=== PATIENT | female | born 1945 | race Caucasian/White ===

== ENCOUNTER 2017-03-22 08:56 | Emergency (ER) | payer OTHER ==
[~2017-03-22] VITALS: Ht 167.6 cm; Wt 77.9 kg
[~2017-03-22 08:56] MED LIST: ASPI325T45 PO; BUME1TAB PO; GLUC500T35 PO; HYDR-5688 PO; LISI10TA PO; METO1TAB66 PO; MULTCAP42 PO; WARF2.5T8 PO; [UNRECOGNIZED DRUG - CODE] PO
[2017-03-22 09:01] VITALS: TEMP 36.3; Ht 167.6 cm; Wt 77.9 kg
--- NOTE | 2017-03-22 09:33 | EMERGENCY ROOM VISIT NOTE ---
History Report prepared by Kalpana: Rylee Tyson Under the Supervision of: Dr. Mark Bautista M.D. First contact with patient: 09:13 Chief Complaint: RAPID HEART RATE Stated Complaint: RAPID HEART RATE Nursing Triage Summary: Rapid HR since last Saturday. Hx A. Fib. Pts clinical specialty rep, Dr. Hernandez verbalized pt should come to ED for possible cardioversion. Takes Xarelto. History of Present Illness The patient is a 71 year old female who presents to the Emergency Room with complaints of a constant rapid heart rate for the past 6 days. She states that her heart rate has been in the 110's. She has a history of atrial fibrillation but states that she is usually in a normal sinus rhythm. She currently feels like her heart is racing, and she has been having trouble sleeping due to her symptoms. The patient notes shortness of breath with exertion. She has a pacemaker and an artificial valve. She takes Tikosyn daily and only takes Xarelto when she is in a-fib. She has been taking Xarelto for the past 6 days without any improvement of her symptoms. The patient denies any chest pain. She denies any stimulant usage or recent caffeine intake. She has been experiencing intermittent leg cramping. The patient spoke with her clinical specialty rep, Dr. Hernandez , who advised her to come to the ED for evaluation and possible cardioversion. The patient has been cardioverted numerous times in the past. Source of History: patient Onset: 6 days ago Position: chest Symptom Intensity: HR in 110s Quality: other (rapid) Timing: constant Modifying Factors (Worsening): exertion Associated Symptoms: + SOB, No chest pain Review of Systems All systems have been listed, reviewed, and are negative other than those previously mentioned. Please see Additional Medical History Sheet. Past Medical & Surgical Medical Problems: (1) A-fib (2) Cardiac pacemaker in situ (3) Concussion (4) HTN (hypertension) (5) Pacemaker malfunction (6) Pacemaker malfunction (7) Paroxysmal a-fib (8) Paroxysmal a-fib (9) SOB (shortness of breath) (10) Syncope Surgical Problems: (1) History of artificial heart valve Family History Diabetes mellitus Heart disease Social History Smoking Status: Never Smoker Marital Status: single Occupation Status: retired Current/Historical Medications Scheduled Bumetanide (Bumetanide), 0.5 MG PO DAILY Dofetilide (Dofetilide), 250 MCG PO BID Fzpqrvmfjpt-Kxvqvfkrrro-Xit C- (Glucosamine Chondroitin), 1 CAP PO DAILY Lisinopril (Lisinopril), 10 MG PO DAILY Metoprolol Succinate (Metoprolol Succinate ER), 100 MG PO BID Multivitamin (Multivitamin), 1 TAB PO DAILY Scheduled PRN Rivaroxaban (Xarelto), 20 MG PO DAILY PRN for A-FIB Allergies Coded Allergies: Furosemide (Verified Allergy, Unknown, RASH, 05/26/14) Statins (Verified Allergy, Unknown, ., 05/26/14) Ezetimibe (Verified Adverse Reaction, Unknown, nausea,diarrhea, 05/26/14) Physical Exam Vital Signs Date Time Temp Pulse Resp B/P (MAP) Pulse Ox O2 Delivery O2 Flow Rate FiO2 03/22/17 15:10 112 16 124/90 95 Room Air 03/22/17 13:35 111 18 136/111 97 Room Air 03/22/17 13:09 111 03/22/17 11:30 112 125/100 03/22/17 11:21 110 142/98 03/22/17 10:51 111 18 126/96 95 Room Air 03/22/17 09:19 111 03/22/17 09:01 93 Room Air 03/22/17 09:01 36.3 113 18 128/88 93 Room Air Physical Exam GENERAL: Patient awake, alert, oriented x 3. Patient follows commands. Patient does not appear toxic. Patient is adequately hydrated and well- nourished. SKIN: No erythema, pallor, cyanosis or rash HEENT: Normal head, pupils equal, reactive to light and accommodation. LUNGS: Clear to auscultation. No wheezes, no rales, no rhonchi. HEART: Grade 3/6 systolic murmur. Irregularly irregular and rapid. No gallops. No rubs ABDOMEN: No masses, no rebound, no hepatomegaly or splenomegaly. EXTREMITIES: No signs of trauma. No pedal or pretibial edema. No calf or thigh tenderness. NEUROLOGIC: Cranial nerves II-XII within normal limits. No gross motor sensory function deficits. Medical Decision & Procedures ER Provider Diagnostic Interpretation: Radiology results as stated below per my review and radiologist interpretation: CHEST ONE VIEW PORTABLE HISTORY: Atrial fibrillation. COMPARISON: Chest 05/28/2014. FINDINGS: The heart remains mildly enlarged. Left-sided pacemaker. Poststernotomy changes and an aortic valve prosthesis. The lungs are clear. No pleural effusions. No pneumothorax. IMPRESSION: No significant change compared to the prior study. No acute process. Electronically signed by: Kwame Holden M.D. 03/22/2017 9:46 AM Dictated Date/Time: 03/22/2017 9:45 AM Laboratory Results 03/22/17 09:35 03/22/17 09:35 Test 03/22/17 09:35 Red Blood Count 4.98 M/uL (4.2-5.4) Mean Corpuscular Volume 85.3 fL (80-100) Mean Corpuscular Hemoglobin 27.1 pg (25-34) Mean Corpuscular Hemoglobin Concent 31.8 g/dl (32-36) RDW Standard Deviation 44.9 fL (36.4-46.3) RDW Coefficient of Variation 14.4 % (11.5-14.5) Mean Platelet Volume 9.4 fL (7.4-10.4) Anion Gap 6.0 mmol/L (3-11) Est Creatinine Clear Calc Drug Dose 48.7 ml/min Estimated GFR () 58.1 Estimated GFR (Non- 50.1 BUN/Creatinine Ratio 23.4 (10-20) Calcium Level 9.7 mg/dl (8.5-10.1) Troponin I < 0.015 ng/ml (0-0.045) Thyroid Stimulating Hormone (TSH) 3.790 uIu/ml (0.300-4.500) Laboratory results as stated above per my review. Medications Administered Medications (Trade) Dose Ordered Sig/Shen Route Start Time Stop Time Status Last Admin Dose Admin Metoprolol Tartrate (Lopressor Iv) 5 mg STK-MED ONCE .ROUTE 03/22/17 11:14 03/22/17 11:15 DC 03/22/17 11:21 5 MG Sodium Chloride 1,000 ml @ 200 mls/hr Q5H IV 03/22/17 11:30 04/21/17 11:29 03/22/17 11:30 200 MLS/HR Diltiazem HCl (Cardizem Cd Cap) 120 mg 1343 PO 03/22/17 13:43 03/22/17 16:00 03/22/17 13:54 120 MG ECG Indication: tachycardia Rate (beats per minute): 111 Rhythm: atrial fibrillation (with RVR) Findings: LAFB, RBBB, no acute ischemic change ED Course 09: Past medical records reviewed. The patient was evaluated in room A12B. A complete history and physical examination was performed. 1033: I spoke with Dr. Hernandez, the patient's clinical specialty rep. We discussed the patient's case and he is aware of her. Dr. Scott will come to the ED to evaluate the patient. 1054: I updated the patient and she is in agreement with the treatment plan. 1400: I spoke with Dr. Scott of cardiology. He interrogated the patient's pacemaker and believes the patient to be in an atrial tachycardia as opposed to atrial fibrillation. He ordered medications and the patient can be discharged. 1441: I reassessed the patient at this time. She is feeling better and resting comfortably. I discussed the results and treatment plan with the patient. I answered all pertaining questions that she had. She expressed understanding and verbalized agreement. The patient will be discharged home. Medical Decision Differential diagnoses includes atrial fibrillation, metabolic disorder, thyroid dysfunction. Medication Reconciliation: I attest that I have personally reviewed the patient' s current medication list. The patient has a prior history of recurrent atrial fibrillation. She now arrives with an irregular rapid rate. She takes Xarelto intermittently when she thinks she is back in atrial fibrillation. The initial EKG appeared to be atrial fibrillation. I discussed the case initially with Dr. Hernandez and later with Dr. Scott. Multiple labs, EKG and imaging were obtained. Please see above. Her pacemaker was interrogated. It was later determined that the patient was in atrial tachycardia with PACs. The patient was treated with Cardizem. Dr. Scott felt the patient could be discharged. Consults Time Called: 1031 Consulting Physician: Dr. Hernandez Returned Call: [address] Hernandez, the patient's clinical specialty rep. We discussed the patient' s case and he is aware of her. Dr. Scott will come to the ED to evaluate the patient. Additional Consults: Time Called: 1400 Consulted Physician: Dr. Scott Returned Call: 1400 Additional Comments: I spoke with Dr. Scott of cardiology. He interrogated the patient's pacemaker and believes the patient to be in an atrial tachycardia as opposed to atrial fibrillation. He ordered medications and the patient can be discharged. Impression Primary Impression: Atrial tachycardia Additional Impression: PAC (premature atrial contraction) Scribe Attestation The scribe's documentation has been prepared under my direction and personally reviewed by me in its entirety. I confirm that the note above accurately reflects all work, treatment, procedures, and medical decision making performed by me. Departure Information Dispostion Home / Self-Care Referrals Seth Graham D.O. (PCP) Andrea Scott D.O. Darryn Hernandez, DO Forms HOME CARE DOCUMENTATION FORM, IMPORTANT VISIT INFORMATION, WORK / SCHOOL INSTRUCTIONS Patient Instructions My [facility] Additional Instructions Continue all of your current medications as prescribed plus Cardizem as prescribed by Dr. Scott. Problem Qualifiers
[2017-03-22] MEDS ORDERED: XRL20 PO (09:45)
[2017-03-22] MEDS ORDERED: DOFE250C4 PO (09:45)
[2017-03-22] MEDS ORDERED: TPRSR/100 PO (09:45)
[2017-03-22] MEDS ORDERED: LISI-461 PO (09:45)
[2017-03-22] MEDS ORDERED: MULT-506 PO (09:45)
[2017-03-22] MEDS ORDERED: BUME0.5T3 PO (09:45)
[2017-03-22] MEDS ORDERED: GLUC1CAP35 PO (09:45)
--- NOTE | 2017-03-22 09:47 | DIAGNOSTIC IMAGING REPORT ---
CHEST ONE VIEW PORTABLE HISTORY: Atrial fibrillation. COMPARISON: Chest 05/28/2014. FINDINGS: The heart remains mildly enlarged. Left-sided pacemaker. Poststernotomy changes and an aortic valve prosthesis. The lungs are clear. No pleural effusions. No pneumothorax. IMPRESSION: No significant change compared to the prior study. No acute process. Electronically signed by: Kwame Holden M.D. 03/22/2017 9:46 AM Dictated Date/Time: 03/22/2017 9:45 AM
[2017-03-22 09:53] LABS: HEMATOCRIT 42.5 % (37-47); MEAN CELL VOLUME 85.3 fL (80-100); MEAN CORPUSCULAR HEMOGLOBIN 27.1 pg (25-34); MEAN CORPUSCULAR HGB CONC 31.8 g/dl (32-36); MEAN PLATELET VOLUME 9.4 fL (7.4-10.4); PLATELET COUNT 305 K/uL (130-400); RED BLOOD COUNT 4.98 M/uL (4.2-5.4); WHITE BLOOD COUNT 5.42 K/uL (4.8-10.8)
[2017-03-22 10:03] LABS: BUN/CREATININE RATIO 23.4 (10-20); CALCIUM 9.7 mg/dl (8.5-10.1); CREATININE 1.1 mg/dl (0.60-1.20); POTASSIUM 4.3 mmol/L (3.5-5.1)
[2017-03-22 10:14] LABS: THYROID STIMULATING HORMONE 3.79 uIu/ml (0.300-4.500)
[2017-03-22] MEDS ORDERED: METOPROLOL TARTRATE 1 MG/ML VIAL ONE (11:14)
[2017-03-22] MEDS ORDERED: METOPROLOL TARTRATE 1 MG/ML VIAL IV STA (11:16)
--- NOTE | 2017-03-22 11:29 | Cardiology Consultation ---
Cardiology Consultation Requesting Physician: Lily Attending Laborer [place]: [place] History of Present Illness Patient is a 71 year old female with long standing history of asymptomatic PAF. Fit bit showed her heart rate to be elevated beginning on 03/16, per her EP's recommendations she initiated Xarelto at that time. OF NOTE: PT IS NOT ON DAILY ANTICOAGULATION, instructed by EP at [facility] to only take Xarelto on days she believes to be in AFIB. She took it every day since but rates have remained elevated. Otherwise, completely asymptomatic. Has not missed any doses of Tikosyn of Toprol XL, took both this AM. Called Dr. Hernandez's office today with above information and instructed to proceed to ER. Currently, remains asymptomatic in ER, no meds given yet. History Past Medical History: 1. Paroxysmal atrial fibrillation s/p PVI ablation 12/2014 and external DCCV 02/11 and 03/15/15. - currently maintained in sinus rhythm with dofetilide - 6% atrial fibrillation burden per most recent PPM interrogation, AT/AF Episodes: 104 since last reset. Longest was 9 minutes. 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 Compensated diastolic heart failure 3. History of bicuspid aortic and mitral valve disease valve s/p bioprosthetic AVR and MV annuloplasty ring placement in 2004 at [facility]. 4. History of 3rd degree AVB s/p recent generator change and subsequent revision secondary to lead reversal. 5. HTN - controlled 6. H/o atrial tachycardia s/p ablation 7. History of normal coronary arteries by cardiac catheterization x 2. 8. Uncontrolled dyslipidemia with statin and Zetia intolerance Past Surgical History: COLONOSCOPY 2009 nml f/u 2019 INSERT/REPLACE PULSE GEN ONLY, DOUBLE 03/22/2014 NEW DDD PACEMAKER GENERATOR ONLY performed [place] Susan Rivera IV, [place] [facility] [place] aortic valve MISCELLANEOUS ORDER pacemaker MISCELLANEOUS ORDER 2006 sacroplexy MISCELLANEOUS ORDER 2009 presumed umbilcal hernia- with mesh REMOVAL OF TONSILS, UNDER AGE 11 TOTAL ABD HYSTERECTOMY W/WO REMOVAL OF TUBE(S ) Social History: Denies alcohol, tobacco or recreational drug use Family History: noncontributory Past Medical/Surgical History Problem List: Medical Problems: (1) A-fib (2) Cardiac pacemaker in situ (3) Concussion (4) HTN (hypertension) (5) Pacemaker malfunction (6) Pacemaker malfunction (7) Paroxysmal a-fib (8) Paroxysmal a-fib (9) SOB (shortness of breath) (10) Syncope Surgical Problems: (1) History of artificial heart valve Review Of Systems General: The patient denies weight change, night sweats, fever, chills. Head: The patient denies headache and prior head trauma. Cardiovascular: The patient denies chest pain or chest discomfort, dyspnea on exertion, palpitations, PND, orthopnea, edema, spontaneous shortness of breath, syncope and near syncope. Pulmonary: The patient denies cough, wheeze, pleurisy, hemoptysis, sputum, and excessive snoring. Gastrointestinal: The patient denies nausea, vomiting, diarrhea, constipation, bloating, hematemesis, hematochezia, and abdominal pain. Skin: The patient denies diaphoresis and rash. Musculoskeletal: The patient denies joint pain, joint swelling, myalgia, back pain, neck pain and prior injuries. Neurological: The patient denies prior stroke and seizures Allergies Coded Allergies: Furosemide (Verified Allergy, Unknown, RASH, 05/26/14) Statins (Verified Allergy, Unknown, ., 05/26/14) Ezetimibe (Verified Adverse Reaction, Unknown, nausea,diarrhea, 05/26/14) Medications Reported Home Medications Medications Dose Route/Sig Max Daily Dose Days Date Category Multivitamin (Multivitamins) Tab 1 Tab PO DAILY 03/22/17 Reported Glucosamine Chondroitin (Tmzgfrhkfdt-Muzpbpqaugl-Rkh C-) 1 Cap Cap 1 Cap PO DAILY 03/22/17 Reported Xarelto (Rivaroxaban) 20 Mg Tab 20 Mg PO DAILY PRN 03/22/17 Reported Dofetilide 250 Mcg Cap 250 Mcg PO BID 03/22/17 Reported Metoprolol Succinate ER (Metoprolol Succinate) 100 Mg Tabcr 100 Mg PO BID 03/22/17 Reported Bumetanide 0.5 Mg Tab 0.5 Mg PO DAILY 03/22/17 Reported Lisinopril 10 Mg Tab 10 Mg PO DAILY 03/22/17 Reported Physical Exam Vital Signs (Last 8hrs): Last 8 Hrs Date Time Temp Pulse Resp B/P (MAP) Pulse Ox O2 Delivery O2 Flow Rate FiO2 03/22/17 10:51 111 18 126/96 95 Room Air 03/22/17 09:19 111 03/22/17 09:01 93 Room Air 03/22/17 09:01 36.3 113 18 128/88 93 Room Air General Appearance: Alert and Oriented x3. NAD. Head: Normocephalic Atraumatic. Eyes: PERRLA, EOMI, conjunctiva and sclera clear Neck: Supple. No carotid bruits noted. No JVD. No HJD. Respiratory: Breath sounds clear to auscultation bilaterally. No w/r/r. Cardiovascular: Reg rate and rhythm. S1 and S2 noted. No murmurs, rubs, gallops. PMI non displace. Abdomen: Normal bowel sounds, soft nontender. no abdominal bruits. Extremities: No edema, no clubbing or cyanosis. distal pulses 2/4 bilaterally. Neuro: No focal deficits. Psychiatric: Normal affect. Data Last 24 Hours Test 03/22/17 09:35 White Blood Count 5.42 K/uL Red Blood Count 4.98 M/uL Hemoglobin 13.5 g/dL Hematocrit 42.5 % Mean Corpuscular Volume 85.3 fL Mean Corpuscular Hemoglobin 27.1 pg Mean Corpuscular Hemoglobin Concent 31.8 g/dl RDW Standard Deviation 44.9 fL RDW Coefficient of Variation 14.4 % Platelet Count 305 K/uL Mean Platelet Volume 9.4 fL Sodium Level 141 mmol/L Potassium Level 4.3 mmol/L Chloride Level 106 mmol/L Carbon Dioxide Level 29 mmol/L Anion Gap 6.0 mmol/L Blood Urea Nitrogen 26 mg/dl Creatinine 1.10 mg/dl Est Creatinine Clear Calc Drug Dose 48.7 ml/min Estimated GFR () 58.1 Estimated GFR (Non- 50.1 BUN/Creatinine Ratio 23.4 Random Glucose 86 mg/dl Calcium Level 9.7 mg/dl Troponin I < 0.015 ng/ml Thyroid Stimulating Hormone (TSH) 3.790 uIu/ml Imaging: EKG: Telemetry reviewed: atrial fibrillation in 110's Assessment & Plan 1. PAF long standing history HR became elevated on fit bit on 03/16, patient started Xarelto at that time but no objective proof that patient was in fact in sinus rhythm prior will ask [facility] to interrogate: if afib did start within 72 hours of then will proceed with DC cardioversion if initiated earlier then will perform YUDITH guided cardioversion will give 1L NSS now along with lopressor 5mg IV x 1 now for rate control already took toprol and tikosyn today npo ADDENDUM: Device interrogated: atrial tachycardia, no fibrillation or flutter. Pt does have a history and underwent PAT ablation in 2005. Discussed this finding with patient and primary infant teacher will add cardizem cd 120mg po daily for rate control recommend full anticoagulation for the time being patient would prefer coumadin due to cost my office will call in coumadin 5mg po daily along with coag clinic referral along with the cardizem cd 120mg po daily offered EP eval with Dr. Lane, patient adament that will only see her EP in [place] ok to d/c to home after receiving cardizem
[2017-03-22] MEDS ORDERED: SODIUM CHLORIDE 0.9% 1000ML 1,000 ML IV SCH (11:30)
[2017-03-22] MEDS ORDERED: DILTIAZEM HCL 120 MG CAPCR PO SCH (13:43)
[2017-03-22 15:34] VITALS: BP 129/104; PULSE 113; O2SAT 94
[2017-03-23] MEDS ORDERED: DILTIAZEM HCL 120 MG CAPCR PO SCH (09:00)
== END 2017-03-22 15:36 | disposition home or self-care (01) ==
LOC: C.EDB 08:58 → C.EDA 15:36
DX: I47.1 Supraventricular tachycardia (principal); I48.0 Paroxysmal atrial fibrillation; Z95.0 Presence of cardiac pacemaker; E78.5 Hyperlipidemia, unspecified; Z95.2 Presence of prosthetic heart valve; I10 Essential (primary) hypertension; Z83.3 Family history of diabetes mellitus; Z79.899 Other long term (current) drug therapy; Z79.01 Long term (current) use of anticoagulants

== ENCOUNTER 2017-10-18 15:42 | Emergency (ER) | payer OTHER ==
[~2017-10-18] VITALS: Ht 170.2 cm; Wt 95.1 kg
[~2017-10-18 15:42] MED LIST changes: -ASPI325T45 PO; +BUME0.5T3 PO; -BUME1TAB PO; +DOFE250C4 PO; +GLUC1CAP35 PO; -GLUC500T35 PO; -HYDR-5688 PO; +LISI-461 PO; -LISI10TA PO; -METO1TAB66 PO; +MULT-506 PO; -MULTCAP42 PO; +TPRSR/100 PO; -WARF2.5T8 PO; +XRL20 PO; -[UNRECOGNIZED DRUG - CODE] PO
[2017-10-18 15:47] VITALS: TEMP 36.6; Ht 170.2 cm; Wt 95.1 kg
[2017-10-18] MEDS ORDERED: GLUC500T35 PO (16:41)
[2017-10-18] MEDS ORDERED: WARF-280 PO (16:41)
[2017-10-18] MEDS ORDERED: DILT120C PO (16:41)
[2017-10-18 18:22] LABS: HEMATOCRIT 33.8 % (37-47); HEMOGLOBIN 10.8 g/dL (12.0-16.0); MEAN CELL VOLUME 86.2 fL (80-100); MEAN CORPUSCULAR HEMOGLOBIN 27.6 pg (25-34); MEAN PLATELET VOLUME 9.5 fL (7.4-10.4); PLATELET COUNT 225 K/uL (130-400); RED CELL DISTRIBUTION WIDTH CV 15.1 % (11.5-14.5); RED CELL DISTRIBUTION WIDTH SD 47.1 fL (36.4-46.3); WHITE BLOOD COUNT 9.23 K/uL (4.8-10.8)
[2017-10-18 18:31] LABS: INR 2.4 (0.9-1.1)
[2017-10-18 18:43] LABS: CALCIUM 9.5 mg/dl (8.5-10.1); CREATININE 0.94 mg/dl (0.60-1.20); POTASSIUM 3.9 mmol/L (3.5-5.1)
--- NOTE | 2017-10-18 19:22 | DIAGNOSTIC IMAGING REPORT ---
L ART DOP DUPLEX LWR EXT UNI HISTORY: 72 years-old Female left groin hematoma eval for psuedoanuerysm acute hematoma of the left thigh surgery. Prior catheterization of the left femoral artery 10/16/2017. Concern for possible pseudoaneurysm. COMPARISON: None available TECHNIQUE: Multiple real-time sonographic images of the left upper thigh were obtained assessing grayscale appearance, color and spectral flow FINDINGS: Within the left groin there is a complex fluid collection at the area of recent catheterization demonstrating layering hyperattenuating material compatible with hemorrhage measuring 12.4 x 6.5 x 11.7 cm without internal flow. Moderate soft tissue swelling with subcutaneous edema about the left thigh and groin area limits evaluation of the left femoral artery and vein. Normal triphasic flow is seen within the midportion of the left femoral artery with peak systolic velocity of 72 cm/s. Proximal portion of the left common femoral artery is suboptimally visualized, however appears patent with triphasic flow. IMPRESSION: 1. 12.4 cm hematoma of the left groin without internal flow identified. 2. The left common femoral artery is difficult to visualize secondary to large amount of upper thigh and groin soft tissue swelling with adjacent hematoma however appears to be patent without definite pseudoaneurysm identified. The above report was generated using voice recognition software. It may contain grammatical, syntax or spelling errors. Electronically signed by: Livan Bey M.D. 10/18/2017 7:21 PM Dictated Date/Time: 10/18/2017 7:13 PM
[2017-10-18 19:36] VITALS: BP 140/113; PULSE 63; O2SAT 96
--- NOTE | 2017-10-18 23:19 | EMERGENCY ROOM VISIT NOTE ---
History Report prepared by Kalpana: Dacia Monique Under the Supervision of: Dr. Darryn Gomez M.D. First contact with patient: 16:00 Chief Complaint: LEG PAIN,LEG INJURY Stated Complaint: HEMATOMA TO THIGH, RED, HARD, HOT- S/P SURGERY History of Present Illness The patient is a 72 year old female who presents to the Emergency Room with complaints of persistent left groin pain starting this afternoon. The patient was reading when she started having pain in her left groin. She checked her groin and found there was a hematoma. Her groin is swollen, and painful. She does not have any swelling in her legs besides the hematoma. She denies any chest pain, SOB, fever, vomiting, rectal bleeding, black stools, or hematuria. The patient had a cardiac ablation 2 days ago. They went into the arteries in her groins and her left wrist. The patient returned home yesterday. Her INR at the hospital was 1.9 so they placed her on Lovenox and doubled her Coumadin. Her INR this morning was 3.4. Her last Lovenox shot was this morning at 0800. She last had Coumadin last night. She was told not to take her Lovenox this evening. Source of History: patient Onset: this afternoon Position: other (left groin) Quality: other (pain) Timing: other (persistent) Associated Symptoms: No chest pain, No SOB, No vomiting, No melena, No hematochezia Note: Pt denies hematuria. Review of Systems See HPI for pertinent positives & negatives. A total of 10 systems reviewed and were otherwise negative. Past Medical & Surgical Medical Problems: (1) A-fib (2) Cardiac pacemaker in situ (3) Concussion (4) HTN (hypertension) (5) Pacemaker malfunction (6) Pacemaker malfunction (7) Paroxysmal a-fib (8) Paroxysmal a-fib (9) SOB (shortness of breath) (10) Syncope Surgical Problems: (1) History of artificial heart valve Family History Diabetes mellitus Heart disease Social History Smoking Status: Never Smoker Marital Status: single Occupation Status: retired Current/Historical Medications Scheduled Diltiazem Hcl Coated Beads (Diltiazem Hcl Er), 120 MG PO QAM Glucosamine-Chondroitin (Cosamin Ds), 1 TAB PO QAM Metoprolol Succinate (Metoprolol Succinate ER), 50 MG PO Q12 Multivitamin (Multivitamin), 1 TAB PO QAM Warfarin Sodium (Warfarin Sodium), 2.5 MG PO UD Scheduled PRN Bumetanide (Bumetanide), 0.5-1 MG PO DAILY PRN for Fluid Retention Miscellaneous Medications Dofetilide (Dofetilide), 250 MCG PO Allergies Coded Allergies: Furosemide (Verified Allergy, Unknown, RASH, 05/26/14) Statins (Verified Allergy, Unknown, ., 05/26/14) Ezetimibe (Verified Adverse Reaction, Unknown, nausea,diarrhea, 05/26/14) Physical Exam Vital Signs Date Time Temp Pulse Resp B/P (MAP) Pulse Ox O2 Delivery O2 Flow Rate FiO2 10/18/17 19:36 63 20 140/113 96 Room Air 10/18/17 16:23 63 10/18/17 15:47 36.6 63 20 128/72 96 Physical Exam Constitutional: Vital signs reviewed. Eyes: Pupils are equal round reactive to light. Conjunctiva are noninjected. ENT: Pharynx is clear without erythema or exudate. Mucous membranes are moist. Neck supple without meningeal signs. Respiratory: Clear to auscultation bilaterally. Breath sounds are equal bilaterally. Cardiovascular: Regular rate and rhythm. No rubs or gallops. GI: Soft, nondistended and nontender. Bowel sounds are present. Musculoskeletal: Large hematoma to the left groin. No palpable thrill. Distal pulse intact. Small hematoma left wrist. Right groin injection site shows no signs of infection. Integumentary: No cyanosis. Neurological: The patient is awake and alert. No focal deficits. Psychiatric: Normal affect. Medical Decision & Procedures ER Provider Diagnostic Interpretation: Radiology results as stated below per my review and the radiologist's interpretation: L ART DOP DUPLEX LWR EXT UNI HISTORY: 72 years-old Female left groin hematoma eval for psuedoanuerysm acute hematoma of the left thigh surgery. Prior catheterization of the left femoral artery 10/16/2017. Concern for possible pseudoaneurysm. COMPARISON: None available TECHNIQUE: Multiple real-time sonographic images of the left upper thigh were obtained assessing grayscale appearance, color and spectral flow FINDINGS: Within the left groin there is a complex fluid collection at the area of recent catheterization demonstrating layering hyperattenuating material compatible with hemorrhage measuring 12.4 x 6.5 x 11.7 cm without internal flow. Moderate soft tissue swelling with subcutaneous edema about the left thigh and groin area limits evaluation of the left femoral artery and vein. Normal triphasic flow is seen within the midportion of the left femoral artery with peak systolic velocity of 72 cm/s. Proximal portion of the left common femoral artery is suboptimally visualized, however appears patent with triphasic flow. IMPRESSION: 1. 12.4 cm hematoma of the left groin without internal flow identified. 2. The left common femoral artery is difficult to visualize secondary to large amount of upper thigh and groin soft tissue swelling with adjacent hematoma however appears to be patent without definite pseudoaneurysm identified. The above report was generated using voice recognition software. It may contain grammatical, syntax or spelling errors. Electronically signed by: Livan Bey M.D. 10/18/2017 7:21 PM Dictated Date/Time: 10/18/2017 7:13 PM Laboratory Results 10/18/17 18:05 10/18/17 18:05 Test 10/18/17 18:05 Red Blood Count 3.92 M/uL (4.2-5.4) Mean Corpuscular Volume 86.2 fL (80-100) Mean Corpuscular Hemoglobin 27.6 pg (25-34) Mean Corpuscular Hemoglobin Concent 32.0 g/dl (32-36) RDW Standard Deviation 47.1 fL (36.4-46.3) RDW Coefficient of Variation 15.1 % (11.5-14.5) Mean Platelet Volume 9.5 fL (7.4-10.4) Prothrombin Time 24.8 SECONDS (9.0-12.0) Prothromb Time International Ratio 2.4 (0.9-1.1) Anion Gap 7.0 mmol/L (3-11) Est Creatinine Clear Calc Drug Dose 63.1 ml/min Estimated GFR () 69.8 Estimated GFR (Non- 60.2 BUN/Creatinine Ratio 25.7 (10-20) Calcium Level 9.5 mg/dl (8.5-10.1) Laboratory results as reviewed by me. ED Course 1604: The patient was evaluated in room B6. A complete history and physical exam was performed. 1917: I reevaluated the patient. I updated her on the results. We are waiting on the ultrasound results. 1951: I discussed the patient's case with Dr. Gan [facility] cardiology. He states that there is nothing to do and recommends the patient take her regular dose of Coumadin and stop Lovenox. She should return for worsening symptoms. 1954: Upon reevaluation, the patient appeared to have improvement of her symptoms. The swelling and pain has gone down since using a cold compress. I discussed tonight's findings with her. She verbalized agreement of the treatment plan. She was discharged home. Medical Decision This is a 72-year-old female who presents with left groin pain and swelling. Differential diagnosis includes supratherapeutic INR, hematoma, pseudoaneurysm, abscess, DVT. I did perform a limited focused review of portions of the patient 's old chart on the electronic medical record. The patient has had no recent pertinent visits to this hospital. I did evaluate the patient as noted above. The patient has a hematoma to her left groin. She is on Lovenox and her Coumadin was doubled with an elevated INR this morning. IV access was established. I did order and review the patient's blood work as noted in the electronic medical record. She is anemic. Her INR is 2.4. I did order arterial Doppler of the left groin which showed a 12.5 centimeter hematoma. There was no evidence of pseudoaneurysm. Her distal pulses are intact. I did review the images myself as well as the radiology report as described above. I did discuss the test results with the patient. She had improvement of her symptoms with cold compresses. I did discuss the case with cardiology at [facility]. He recommended that the patient stop her Lovenox and continue her Coumadin at her regular dosage. He did recommend that she take her dose tonight. I did discuss this with the patient. I did go over precautions with her regarding when to return. The patient was discharged in good condition. Medication Reconcilliation Current Medication List: was personally reviewed by me Blood Pressure Screening Patient's blood pressure: Elevated blood pressure Blood pressure disposition: Elevated BP felt to be situational Consults Time Called: 1928 Consulting Physician: Dr. Gan [facility] cardiology Returned Call: 1951 I discussed the patient's case with him. He states that there is nothing to do and recommends the patient take her regular dose of Coumadin and stop Lovenox. She should return for worsening symptoms. Impression Primary Impression: Hematoma of left thigh Additional Impressions: Anticoagulated Anemia Scribe Attestation The scribe's documentation has been prepared under my direct and personally reviewed by me in its entirety. I confirm that the note above accurately reflects all work, treatment, procedures, and medical decision making performed by me. Departure Information Dispostion Home / Self-Care Referrals Jason Mixon M.D.([facility]) (PCP) Forms HOME CARE DOCUMENTATION FORM, IMPORTANT VISIT INFORMATION Patient Instructions ED Hematoma, My [facility] Additional Instructions You have been examined and treated today on an emergency basis only. This is not a substitute for, or an effort to provide, complete comprehensive medical care. It is impossible to recognize and treat all injuries or illnesses in a single emergency department visit. It is therefore important that you follow up closely with your physician. Call as soon as possible for an appointment. Return for worsening symptoms or if you develop fever, vomiting, pain, numbness , change in color or temperature to your lower leg or foot, chest pain, shortness breath or any other concerning symptoms. Problem Qualifiers Primary Impression: Hematoma of left thigh Encounter type: initial encounter Qualified Codes: S70.12XA - Contusion of left thigh, initial encounter Additional Impressions: Anemia Anemia type: unspecified type Qualified Codes: D64.9 - Anemia, unspecified
== END 2017-10-18 20:04 | disposition home or self-care (01) ==
LOC: C.EDB 15:43
DX: S70.12XA Contusion of left thigh, initial encounter (principal); X58.XXXA Exposure to other specified factors, initial encounter; D64.9 Anemia, unspecified; Z98.890 Other specified postprocedural states; I48.0 Paroxysmal atrial fibrillation; Z79.01 Long term (current) use of anticoagulants; Z95.0 Presence of cardiac pacemaker; I10 Essential (primary) hypertension; Z95.2 Presence of prosthetic heart valve; Z83.3 Family history of diabetes mellitus; Z79.899 Other long term (current) drug therapy

== ENCOUNTER 2017-10-20 06:46 | Emergency (ER) | payer OTHER ==
[~2017-10-20] VITALS: Ht 167.6 cm; Wt 97.0 kg
[2017-10-20] VITALS (12 sets, daily range): BP systolic 99–123; BP diastolic 57–73; PULSE 66–77; TEMP 36.6–37.2; O2SAT 95–100; Ht 167.6 cm; Wt 97.0 kg
[~2017-10-20 06:46] MED LIST changes: +DILT120C PO; -GLUC1CAP35 PO; +GLUC500T35 PO; -LISI-461 PO; +WARF-280 PO; -XRL20 PO
[2017-10-20] MEDS ORDERED: WARF2.5T8 PO (07:11)
[2017-10-20] MEDS ORDERED: OPTIRAY 320 IV PRN (07:15)
[2017-10-20] MEDS ORDERED: SODIUM CHLORIDE 0.9% 500ML 500 ML IV STA (07:18)
[2017-10-20 07:22] LABS: PTT PATIENT 37.1 SECONDS (21.0-31.0)
--- NOTE | 2017-10-20 07:24 | DIAGNOSTIC IMAGING REPORT ---
CHEST ONE VIEW PORTABLE CLINICAL HISTORY: Altered mental status. Weakness. COMPARISON STUDY: Chest radiograph March 22, 2017. FINDINGS: A left subclavian pacer is in place. There are median sternotomy wires. The patient is rotated. No pneumothorax or pleural effusion is noted. There is no consolidation to suggest pneumonia. Mild cardiomegaly is unchanged. IMPRESSION: No acute cardiopulmonary findings. No change in appearance of the chest. Electronically signed by: Zhang Aguiar M.D. 10/20/2017 7:23 AM Dictated Date/Time: 10/20/2017 7:21 AM
--- NOTE | 2017-10-20 07:26 | DIAGNOSTIC IMAGING REPORT ---
R FOOT MIN 3 VIEWS ROUTINE CLINICAL HISTORY: Right foot injury. COMPARISON: None FINDINGS: Tarsometatarsal joints are intact. There is minimal posterior and plantar calcaneal spurring. Mild cortical thickening of the second and third metatarsal shafts suggests old fractures. No acute fracture within the right foot is identified. There is mild arthritis within several articulations. IMPRESSION: No acute fracture or dislocation of the right foot. Electronically signed by: Zhang Aguiar M.D. 10/20/2017 7:25 AM Dictated Date/Time: 10/20/2017 7:23 AM
[2017-10-20 07:29] LABS: ALBUMIN 2.9 gm/dl (3.4-5.0); CALCIUM 8.8 mg/dl (8.5-10.1); CREATININE 1.13 mg/dl (0.60-1.20); POTASSIUM 3.9 mmol/L (3.5-5.1)
[2017-10-20 07:30] LABS: HEMATOCRIT 20.7 % (37-47); HEMOGLOBIN 6.8 g/dL (12.0-16.0); MEAN CELL VOLUME 84.8 fL (80-100); MEAN CORPUSCULAR HEMOGLOBIN 27.9 pg (25-34); MEAN CORPUSCULAR HGB CONC 32.9 g/dl (32-36); MEAN PLATELET VOLUME 9.1 fL (7.4-10.4); PLATELET COUNT 266 K/uL (130-400); RED CELL DISTRIBUTION WIDTH CV 14.9 % (11.5-14.5); RED CELL DISTRIBUTION WIDTH SD 46.3 fL (36.4-46.3); WHITE BLOOD COUNT 11.72 K/uL (4.8-10.8)
[2017-10-20] MEDS ORDERED: PROTHROMBIN COMP CONC- KCENTRA 2,500 UNIT in SYRINGE 0 ML IV STA (07:36)
[2017-10-20 07:39] LABS: BASO % 0.3 %; BASO ABS # 0.03 K/uL (0-0.2); EOS % 1.3 %; EOS ABS # 0.15 K/uL (0-0.5); IG# 0.04 K/uL (0.00-0.02); LYMPH % 10.7 %; LYMPH ABS # 1.25 K/uL (1.2-3.4); MONO ABS # 1.05 K/uL (0.11-0.59); NEUT % 78.4 %
[2017-10-20 07:41] LABS: CKMB 2.8 ng/ml (0.5-3.6); TOTAL PROTEIN 5.8 gm/dl (6.4-8.2)
[2017-10-20] MEDS ORDERED: PHYTONADIONE INJ 10 MG in SODIUM CHLORIDE 0.9% 50ML 50 ML IV ONE (07:45)
[2017-10-20] MEDS ORDERED: PROTHROMBIN COMP CONC- KCENTRA 2,500 UNIT in SYRINGE 0 ML IV SCH (08:00)
[2017-10-20] MEDS ORDERED: FENTANYL CITRATE INJ 50 MCG/1 ML 2 ML VIAL IV STA (08:30)
--- NOTE | 2017-10-20 09:07 | DIAGNOSTIC IMAGING REPORT ---
CT OF THE HEAD WITHOUT CONTRAST CLINICAL HISTORY: Fall. Syncope. COMPARISON STUDY: Head CT February 22, 2014. TECHNIQUE: Helical axial images of the head were obtained without IV contrast. Automated exposure control was utilized for the study. A dose lowering technique was utilized adhering to the principles of ALARA. FINDINGS: No acute intracranial hemorrhage, midline shift or mass effect is present. Ventricular system is stable. Basilar cisterns are patent. There are no extra-axial collections. Enriquez-white differentiation is maintained. There are no findings to suggest acute dural sinus thrombosis or acute territorial infarct. Minimal white matter hypodensity suggests small vessel disease. There is no calvarial fracture. IMPRESSION: No acute intracranial findings. Electronically signed by: Zhang Aguiar M.D. 10/20/2017 9:06 AM Dictated Date/Time: 10/20/2017 9:03 AM
--- NOTE | 2017-10-20 09:21 | DIAGNOSTIC IMAGING REPORT ---
CT OF THE LEFT HIP/THIGH WITH CONTRAST CLINICAL HISTORY: Left groin/thigh hematoma from recent catheterization. COMPARISON STUDY: Left lower extremity arterial Doppler ultrasound October 18, 2017. TECHNIQUE: Axial images of the left hip and thigh were obtained following intravenous injection of 92 cc of Optiray 320 IV. FINDINGS: Note is made of a large anterior left thigh mixed attenuation collection with areas of increased attenuation. This is consistent with a large left thigh hematoma which has increased in size since ultrasound of October 18, 2017 although comparison is difficult given differences in technique. This hematoma measures 19 x 17.8 x 8.1 cm. A few small foci of increased attenuation within the posterior aspect of this hematoma suggest active extravasation. No pseudoaneurysm is identified on this examination. Extensive left side edema is noted. There are postoperative findings of the anterior abdominal wall. No acute fracture of the left hip is noted. There is sigmoid diverticulosis without evidence for acute diverticulitis. Although not performed as a CTA exam, the left common femoral and superficial femoral arteries are grossly patent. IMPRESSION: Large anterior left thigh hematoma, measuring 19 x 17.8 x 8.1 cm (previously 12.4 x 6.5 x 11.7 cm on ultrasound of October 18, 2017). Although comparison with prior ultrasound is difficult given differences in technique, this hematoma has likely moderately increased in size. A few small foci of increased attenuation within the posterior aspect of this hematoma represent active extravasation consistent with active bleeding. No pseudoaneurysm identified. Discussed with Dr. Burnett at time of dictation. Electronically signed by: Zhang Aguiar M.D. 10/20/2017 9:20 AM Dictated Date/Time: 10/20/2017 9:06 AM
--- NOTE | 2017-10-20 10:51 | EMERGENCY ROOM VISIT NOTE ---
History Report prepared by Kalpana: Miguel Golden Under the Supervision of: Dr. Jere Burnett D.O. First contact with patient: 06:49 Chief Complaint: SYNCOPE Stated Complaint: SYNCOPE History of Present Illness The patient is a 72 year old female who presents to the Emergency Room with a syncopal episode that occurred 5 hours ago. She denies head strike and states she fell on her right ankle. She has had recurrent syncopal episodes for the past 3 days. She recently had an ablation for her A fib 4 days ago at [facility]. She states she has a hematoma on the left side. She complains of blood in her stool, nausea, and dizziness. Of note, the patient is on Lovenox and Warfarin. Source of History: patient Onset: 5 hours ago Position: ankle (right), other (global) Timing: other (multiple episodes) Associated Symptoms: + LOC, + nausea Note: Patient complains of dizziness and blood in her stool. Review of Systems See HPI for pertinent positives & negatives. A total of 10 systems reviewed and were otherwise negative. Past Medical & Surgical Medical Problems: (1) A-fib (2) Cardiac pacemaker in situ (3) Concussion (4) HTN (hypertension) (5) Pacemaker malfunction (6) Pacemaker malfunction (7) Paroxysmal a-fib (8) Paroxysmal a-fib (9) SOB (shortness of breath) (10) Syncope Surgical Problems: (1) History of artificial heart valve Family History Diabetes mellitus Heart disease Social History Smoking Status: Never Smoker Marital Status: single Occupation Status: retired Current/Historical Medications Scheduled Diltiazem Hcl Coated Beads (Diltiazem Hcl Er), 120 MG PO QAM Dofetilide (Dofetilide), 250 MCG PO AMPM Glucosamine-Chondroitin (Cosamin Ds), 1 TAB PO QAM Metoprolol Succinate (Metoprolol Succinate ER), 50 MG PO Q12 Multivitamin (Multivitamin), 1 TAB PO QAM Warfarin Sod (Jantoven), 1.25 MG PO DAILY ON SATURDAY Warfarin Sodium (Warfarin Sodium), 2.5 MG PO 6XWK Scheduled PRN Bumetanide (Bumetanide), 0.5-1 MG PO DAILY PRN for Fluid Retention Allergies Coded Allergies: Furosemide (Verified Allergy, Unknown, RASH, 10/20/17) Statins (Verified Allergy, Unknown, ., 10/20/17) Ezetimibe (Verified Adverse Reaction, Unknown, nausea,diarrhea, 10/20/17) Physical Exam Vital Signs Date Time Temp Pulse Resp B/P (MAP) Pulse Ox O2 Delivery O2 Flow Rate FiO2 10/20/17 14:11 70 18 120/67 98 Room Air 10/20/17 13:47 78 18 96/58 99 Room Air 10/20/17 12:40 37.0 69 18 118/57 99 Room Air 10/20/17 12:38 37.0 66 18 118/57 95 10/20/17 12:11 37.2 66 18 99/59 96 10/20/17 11:41 36.8 69 18 101/62 97 10/20/17 11:15 68 15 118/69 99 Room Air 10/20/17 11:11 36.8 69 16 116/69 100 10/20/17 11:00 36.6 69 20 123/73 99 10/20/17 10:56 36.6 67 18 107/67 100 10/20/17 10:32 10/20/17 10:23 69 10/20/17 10:09 36.8 68 16 116/69 99 10/20/17 09:39 36.8 69 18 112/70 97 10/20/17 09:29 36.9 69 18 107/71 98 10/20/17 09:24 36.8 68 16 116/66 99 10/20/17 08:52 66 18 101/67 95 10/20/17 08:27 63 20 101/66 100 Room Air 10/20/17 07:55 67 18 94/57 99 Room Air 10/20/17 07:20 74 20 92/57 98 Room Air 10/20/17 07:14 75 95/55 77 81/52 10/20/17 07:07 95 Room Air 10/20/17 07:03 65 10/20/17 06:54 36.8 77 20 96/65 98 Room Air 10/20/17 06:54 81 Physical Exam CONSTITUTIONAL/VITAL SIGNS: Reviewed / noted above. GENERAL: Non-toxic in appearance. INTEGUMENTARY: Warm, dry, and Irwin. HEAD: Normocephalic. EYES: without scleral icterus or trauma. ENT/OROPHARYNX: clear and moist. LYMPHADENOPATHY/NECK: Is supple without lymphadenopathy or meningismus. RESPIRATORY: Lungs clear and equal. CARDIOVASCULAR: Regular rate and rhythm. GI/ABDOMEN: Soft and nontender. No organomegaly or pulsatile mass. No rebound or guarding. Normal bowel sounds. EXTREMITIES: Warm and well perfused. BACK: No CVA tenderness. NEUROLOGICAL: Intact without focal deficits. PSYCHIATRIC: normal affect. MUSCULOSKELETAL: Normally developed with good muscle tone. Ecchymotic area of dorsal right foot. RECTAL: Light brown, guaiac negative stool. PELVIS: large hematoma, left groin. Medical Decision & Procedures ER Provider Diagnostic Interpretation: Radiology results as stated below per my review and radiologist interpretation: CHEST ONE VIEW PORTABLE CLINICAL HISTORY: Altered mental status. Weakness. COMPARISON STUDY: Chest radiograph March 22, 2017. FINDINGS: A left subclavian pacer is in place. There are median sternotomy wires. The patient is rotated. No pneumothorax or pleural effusion is noted. There is no consolidation to suggest pneumonia. Mild cardiomegaly is unchanged. IMPRESSION: No acute cardiopulmonary findings. No change in appearance of the chest. Electronically signed by: Zhang Aguiar M.D. 10/20/2017 7:23 AM Dictated Date/Time: 10/20/2017 7:21 AM R FOOT MIN 3 VIEWS ROUTINE CLINICAL HISTORY: Right foot injury. COMPARISON: None FINDINGS: Tarsometatarsal joints are intact. There is minimal posterior and plantar calcaneal spurring. Mild cortical thickening of the second and third metatarsal shafts suggests old fractures. No acute fracture within the right foot is identified. There is mild arthritis within several articulations. IMPRESSION: No acute fracture or dislocation of the right foot. Electronically signed by: Zhang Aguiar M.D. 10/20/2017 7:25 AM Dictated Date/Time: 10/20/2017 7:[address] OF THE HEAD WITHOUT CONTRAST CLINICAL HISTORY: Fall. Syncope. COMPARISON STUDY: Head CT February 22, 2014. TECHNIQUE: Helical axial images of the head were obtained without IV contrast. Automated exposure control was utilized for the study. A dose lowering technique was utilized adhering to the principles of ALARA. FINDINGS: No acute intracranial hemorrhage, midline shift or mass effect is present. Ventricular system is stable. Basilar cisterns are patent. There are no extra-axial collections. Enriquez-white differentiation is maintained. There are no findings to suggest acute dural sinus thrombosis or acute territorial infarct. Minimal white matter hypodensity suggests small vessel disease. There is no calvarial fracture. IMPRESSION: No acute intracranial findings. Electronically signed by: Zhang Aguiar M.D. 10/20/2017 9:06 AM Dictated Date/Time: 10/20/2017 9:[address] OF THE LEFT HIP/THIGH WITH CONTRAST CLINICAL HISTORY: Left groin/thigh hematoma from recent catheterization. COMPARISON STUDY: Left lower extremity arterial Doppler ultrasound October 18, 2017. TECHNIQUE: Axial images of the left hip and thigh were obtained following intravenous injection of 92 cc of Optiray 320 IV. FINDINGS: Note is made of a large anterior left thigh mixed attenuation collection with areas of increased attenuation. This is consistent with a large left thigh hematoma which has increased in size since ultrasound of October 18, 2017 although comparison is difficult given differences in technique. This hematoma measures 19 x 17.8 x 8.1 cm. A few small foci of increased attenuation within the posterior aspect of this hematoma suggest active extravasation. No pseudoaneurysm is identified on this examination. Extensive left side edema is noted. There are postoperative findings of the anterior abdominal wall. No acute fracture of the left hip is noted. There is sigmoid diverticulosis without evidence for acute diverticulitis. Although not performed as a CTA exam, the left common femoral and superficial femoral arteries are grossly patent. IMPRESSION: Large anterior left thigh hematoma, measuring 19 x 17.8 x 8.1 cm (previously 12.4 x 6.5 x 11.7 cm on ultrasound of October 18, 2017). Although comparison with prior ultrasound is difficult given differences in technique, this hematoma has likely moderately increased in size. A few small foci of increased attenuation within the posterior aspect of this hematoma represent active extravasation consistent with active bleeding. No pseudoaneurysm identified. Discussed with Dr. Burnett at time of dictation. Electronically signed by: Zhang Aguiar M.D. 10/20/2017 9:20 AM Dictated Date/Time: 10/20/2017 9:06 AM Laboratory Results 10/20/17 06:58 Red Blood Count 2.44, Mean Corpuscular Volume 84.8, Mean Corpuscular Hemoglobin 27.9, Mean Corpuscular Hemoglobin Concent 32.9, Mean Platelet Volume 9.1, Neutrophils (%) (Auto) 78.4, Lymphocytes (%) (Auto) 10.7, Monocytes (%) (Auto) 9.0, Eosinophils (%) (Auto) 1.3, Basophils (%) (Auto) 0.3, Neutrophils # (Auto) 9.20, Lymphocytes # (Auto) 1.25, Monocytes # (Auto) 1.05, Eosinophils # (Auto) 0.15, Basophils # (Auto) 0.03 10/20/17 06:58 Test 10/20/17 06:58 White Blood Count 11.72 K/uL (4.8-10.8) Red Blood Count 2.44 M/uL (4.2-5.4) Hemoglobin 6.8 g/dL (12.0-16.0) Hematocrit 20.7 % (37-47) Mean Corpuscular Volume 84.8 fL (80-100) Mean Corpuscular Hemoglobin 27.9 pg (25-34) Mean Corpuscular Hemoglobin Concent 32.9 g/dl (32-36) Platelet Count 266 K/uL (130-400) Mean Platelet Volume 9.1 fL (7.4-10.4) Neutrophils (%) (Auto) 78.4 % Lymphocytes (%) (Auto) 10.7 % Monocytes (%) (Auto) 9.0 % Eosinophils (%) (Auto) 1.3 % Basophils (%) (Auto) 0.3 % Neutrophils # (Auto) 9.20 K/uL (1.4-6.5) Lymphocytes # (Auto) 1.25 K/uL (1.2-3.4) Monocytes # (Auto) 1.05 K/uL (0.11-0.59) Eosinophils # (Auto) 0.15 K/uL (0-0.5) Basophils # (Auto) 0.03 K/uL (0-0.2) RDW Standard Deviation 46.3 fL (36.4-46.3) RDW Coefficient of Variation 14.9 % (11.5-14.5) Immature Granulocyte % (Auto) 0.3 % Immature Granulocyte # (Auto) 0.04 K/uL (0.00-0.02) Microcytosis PRESENT Prothrombin Time 31.3 SECONDS (9.0-12.0) Prothromb Time International Ratio 3.0 (0.9-1.1) Activated Partial Thromboplast Time 37.1 SECONDS (21.0-31.0) Partial Thromboplastin Ratio 1.4 Anion Gap 7.0 mmol/L (3-11) Est Creatinine Clear Calc Drug Dose 52.0 ml/min Estimated GFR () 55.8 Estimated GFR (Non- 48.2 BUN/Creatinine Ratio 21.6 (10-20) Calcium Level 8.8 mg/dl (8.5-10.1) Magnesium Level 1.8 mg/dl (1.8-2.4) Total Bilirubin 0.6 mg/dl (0.2-1) Direct Bilirubin 0.1 mg/dl (0-0.2) Aspartate Amino Transf (AST/SGOT) 31 U/L (15-37) Alanine Aminotransferase (ALT/SGPT) 24 U/L (12-78) Alkaline Phosphatase 61 U/L (45-117) Total Creatine Kinase 111 U/L (26-192) Creatine Kinase MB 2.8 ng/ml (0.5-3.6) Creatine Kinase MB Ratio 2.5 (0-3.0) Troponin I 0.184 ng/ml (0-0.045) Total Protein 5.8 gm/dl (6.4-8.2) Albumin 2.9 gm/dl (3.4-5.0) Lipase 126 U/L (73-393) Thyroid Stimulating Hormone (TSH) 2.870 uIu/ml (0.300-4.500) Laboratory results as stated above per my review. Medications Administered Medications (Trade) Dose Ordered Sig/Shen Route Start Time Stop Time Status Last Admin Dose Admin Sodium Chloride 500 ml @ 999 mls/hr Q31M STAT IV 10/20/17 07:18 10/20/17 07:48 DC 10/20/17 07:26 999 MLS/HR Phytonadione 10 mg/Sodium Chloride 51 ml @ 102 mls/hr ONE ONCE IV 10/20/17 07:45 10/20/17 08:14 DC 10/20/17 07:55 102 MLS/HR Prothrombin Complex Concent (Human) 2500 unit/ Syringe 100 ml @ 10 mls/min 0800 IV 10/20/17 08:00 10/20/17 12:00 DC 10/20/17 07:54 10 MLS/MIN Fentanyl Citrate (Fentanyl Inj) 50 mcg NOW STAT IV 10/20/17 08:30 10/20/17 08:31 DC 10/20/17 08:39 50 MCG Ondansetron HCl (Zofran Inj) 4 mg NOW STAT IV 10/20/17 13:01 10/20/17 13:02 DC 10/20/17 13:15 4 MG ECG Indication: syncope Rate (beats per minute): 65 Rhythm: other (atrial paced rhythm) Findings: PVC, RBBB Comparison ECG Date: When compared with ECG of 03/22/2017, electronic atrial pacemaker has replaced atral fibrillation Change: Patient's EKG interpreted by me. ED Course 0649: Previous medical records were reviewed. The patient was evaluated in room A11 B. A complete history and physical examination was performed. 0714: Optiray 320, 111 ml UD PRN IV. 0718: Sodium Chloride 500 ml @ 999 mls/hr IV. 0736: Prothrombin Complex Concent (Human) 2,500 unit/syringe 100 ml @ 10 mls/ min IV. 0741: I checked on the patient and she is doing well. 0745: Phytoadinoene 10 mg/ Sodium Chloride 51 ml1 @ 102 mls/hr IV. 0800: Prothrombin Complex Concent (Human) 2,500 unit/syringe 100 ml @ 10 mls/ min 0800 IV. 0830: Fentanyl Inj 50 mcg IV. 0919: I Discussed the patient's case with Dr. Zhang Aguiar - Radiology. The patient will be evaluated for further treatment and disposition. 0923: I Discussed the patient's case with Dr. Andre León - Vascular Surgery. The patient will be evaluated for further treatment and disposition. 0928: I checked on the patient and she is doing well. 0956: I spoke with the patients son and updated him on the status of her hematoma and management plan. 1004: I Discussed the patient's case with Dr. Butch Reid - Cardiology. The patient will be evaluated for further treatment and disposition. 1017: I checked on the patient and updated her. She is doing well. 1130: On reevaluation, the patient is doing well. I discussed the results and findings with the patient. She verbalized agreement of the treatment plan. She is going to be transferred. Medical Decision Differential includes acute cardiac dysrhythmia, microinfarction, CVA, TIA, dehydration, anemia, electrolyte disturbance, seizure, trauma, intracranial bleeding, acute vascular catastrophe, thoracic aortic dissection, PE, abdominal aortic aneurysm rupture, ectopic rupture. This is a 72-year-old female who presents to the ED with a chief complaint of syncope. The patient had a catheterization and ablation done 4 days ago at the [facility]. She was seen here 2 days ago for a hematoma in the left groin. At that time, the provider here spoke with [facility] pipe machine operator who recommended she discontinue Lovenox but continue Coumadin. At that time her INR was 2.4. The patient, this morning around 2 AM got up to get some Tylenol and had a near syncopal episode that caused her to fall. She denies striking her head but didn't cause an injury to her dorsal right foot. The patient was brought in for evaluation here. Patient's blood pressure is 96/65. She is orthostatic and her blood pressure drops to 80 systolic with sitting. Her exam reveals a large hematoma to the left groin area. This is larger than its previous size based on a marked she had placed previously. She did report some blood in her stools but this was tested and she has light brown stools and it is guaiac negative. There is no obvious injury to the head related to her fall. The patient does appear pale. The rest of the exam was unremarkable. The patient's hemoglobin today is 6.8, down from 10.8, 37 hours ago. INR is 3, up from 2.4. BUN is 24, troponin is 0.184. A CT scan of the brain did not show acute process. Chest x-ray was negative for acute disease. A CT scan of the left thigh area reveals a 19 x 1 18 x 8 cm left thigh hematoma. This is larger than the previous ultrasound of 12 x 6 x 12 from Saturday. There is also noted to be a suggestion of active extravasation/ active bleeding in the hematoma site. No pseudoaneurysm was identified. Twelve -lead EKG shows a paced rhythm with a right bundle-branch block and no acute ST elevations. The patient was initially orthostatic and had hypotension with sitting. She was treated with normal saline 500 mL IV fluid bolus. She was also administered to units of packed RBCs, 10 mg of IV vitamin K and 2500 units of Kcentra. She was also given some IV fentanyl for pain. A compression dressing was used over the site of the hematoma and sandbags were placed on top of the hematoma in the left groin. I spoke with Dr. Butch Reid from the [facility]. He is an street supervisor and accepted transfer of the patient. I did speak with the patient's son about her condition, with the consent of the patient. The patient did remain hemodynamically stable during her emergency department stay after she was given fluids and blood. She was transported by helicopter to [facility]. Medication Reconcilliation Current Medication List: was personally reviewed by me Blood Pressure Screening Patient's blood pressure: Normal blood pressure Blood pressure disposition: Did not require urgent referral Consults Time Called: 917 Consulting Physician: Dr. Zhang Aguiar - Radiology Returned Call: [phone] Discussed the patient's case. The patient will be evaluated for further treatment and disposition. Additional Consults: Time Called: 921 Consulted Physician: Dr. Andre León - Vascular Surgery Returned Call: [phone] Additional Comments: Discussed the patient's case. The patient will be evaluated for further treatment and disposition. Time Called: 100 Consulted Physician: Dr. Butch Reid - Cardiology Returned Call: [phone] Additional Comments: Discussed the patient's case. The patient will be evaluated for further treatment and disposition. Impression Primary Impression: Femoral artery hematoma complicating cardiac catheterization Additional Impressions: Severe anemia Elevated troponin Syncope Critical Care I have personally spent 90 minutes of critical care time in the direct management of this patient. This includes bedside care, interpretation of diagnostic studies, and testing, discussion with consultants, patient, and family members, and other required patient management activities. This 30 minutes is in excess of all separately billable procedures. Scribe Attestation The scribe's documentation has been prepared under my direction and personally reviewed by me in its entirety. I confirm that the note above accurately reflects all work, treatment, procedures, and medical decision making performed by me. Departure Information Dispostion Transfer Acute Care Facility Referrals Jason Mixon M.D.([facility]) (PCP) Patient Instructions My [facility] Problem Qualifiers
[2017-10-20] MEDS ORDERED: ONDANSETRON INJ 2 MG/ML 2 ML VIAL IV STA (13:01)
== END 2017-10-20 15:00 | disposition short-term general hospital (02) ==
LOC: EDBD 06:46 → C.EDA 06:47
DX: I97.630 Postprocedural hematoma of a circulatory system organ or structure following a cardiac catheterization (principal); D64.9 Anemia, unspecified; R79.89 Other specified abnormal findings of blood chemistry; R55 Syncope and collapse; I48.0 Paroxysmal atrial fibrillation; I10 Essential (primary) hypertension; Z95.0 Presence of cardiac pacemaker; Z95.2 Presence of prosthetic heart valve; Z79.01 Long term (current) use of anticoagulants; Z83.3 Family history of diabetes mellitus; Z82.49 Family history of ischemic heart disease and other diseases of the circulatory system

== ENCOUNTER 2017-12-01 12:10 | Emergency (ER) | payer OTHER ==
[~2017-12-01] VITALS: Ht 167.6 cm; Wt 89.0 kg
[~2017-12-01 12:10] MED LIST changes: +DILT-213 PO; -DILT120C PO; +WARF2.5T8 PO
[2017-12-01 12:13] VITALS: TEMP 36.6; Ht 167.6 cm; Wt 89.0 kg
[2017-12-01] MEDS ORDERED: SODIUM CHLORIDE 0.9% 1000ML 1,000 ML IV STA (12:42)
[2017-12-01] MEDS ORDERED: ONDANSETRON INJ 2 MG/ML 2 ML VIAL IV STA (12:58)
[2017-12-01 13:19] LABS: BASO % 0.3 %; BASO ABS # 0.02 K/uL (0-0.2); EOS % 1.9 %; EOS ABS # 0.13 K/uL (0-0.5); HEMATOCRIT 38.3 % (37-47); HEMOGLOBIN 11.5 g/dL (12.0-16.0); IG# 0.02 K/uL (0.00-0.02); LYMPH % 13.8 %; LYMPH ABS # 0.95 K/uL (1.2-3.4); MEAN CELL VOLUME 88.5 fL (80-100); MEAN CORPUSCULAR HEMOGLOBIN 26.6 pg (25-34); MEAN PLATELET VOLUME 9.1 fL (7.4-10.4); MONO % 5.4 %; MONO ABS # 0.37 K/uL (0.11-0.59); NEUT % 78.3 %; NEUT ABS # 5.39 K/uL (1.4-6.5); PLATELET COUNT 409 K/uL (130-400); RED CELL DISTRIBUTION WIDTH CV 15.9 % (11.5-14.5); RED CELL DISTRIBUTION WIDTH SD 51.8 fL (36.4-46.3); WHITE BLOOD COUNT 6.88 K/uL (4.8-10.8)
--- NOTE | 2017-12-01 13:21 | EMERGENCY ROOM VISIT NOTE ---
History Report prepared by Kalpana: Darryn Preston Under the Supervision of: Dr. Jere Meeks M.D. First contact with patient: 12:34 Chief Complaint: ILLNESS Stated Complaint: SICK IN STOMACH, SHAKING History of Present Illness The patient is a 72 year old female who presents to the Emergency Room with complaints of intermittent dizziness that began recently. Patient states that she went to the market this morning. She states that "it took a lot out of her" . Patient adds that her dizziness is exacerbated when standing up. Patient has associated symptoms of weakness, shakes, nausea, and vomiting. She states that she vomited up "bile". She denies fevers and abdominal pain. Patient states that she took Tylenol to try and relieve the symptoms. She states that her last dose was this morning. Pertinent past medical history includes a hematoma and 3- part ablation for her heart. Patient states that she began taking Lovenox after the 3-part ablation procedure. She states that the Lovenox shots were stopped immediately after her INR levels became greater than 8. Patient adds that she takes Coumadin. Source of History: patient Onset: Recent Position: head Timing: intermittent Modifying Factors (Worsening): other (Standing up) Associated Symptoms: + nausea, + vomiting, + weakness, No fevers, No abdominal pain Note: Patient has shakes. Review of Systems See HPI for pertinent positives & negatives. A total of 10 systems reviewed and were otherwise negative. Past Medical & Surgical Medical Problems: (1) A-fib (2) Cardiac pacemaker in situ (3) Concussion (4) HTN (hypertension) (5) Pacemaker malfunction (6) Pacemaker malfunction (7) Paroxysmal a-fib (8) Paroxysmal a-fib (9) SOB (shortness of breath) (10) Syncope Surgical Problems: (1) History of artificial heart valve Family History Diabetes mellitus Heart disease Social History Smoking Status: Never Smoker Marital Status: single Occupation Status: retired Current/Historical Medications Scheduled Diltiazem Hcl Coated Beads (Diltiazem Hcl Er), 120 MG PO QAM Dofetilide (Dofetilide), 250 MCG PO AMPM Glucosamine-Chondroitin (Cosamin Ds), 1 TAB PO QAM Metoprolol Succinate (Metoprolol Succinate ER), 50 MG PO Q12 Multivitamin (Multivitamin), 1 TAB PO QAM Ondasetron Odt (Zofran Odt), 4 MG SL Q6H Sulfa/Trimethoprim (Bactrim Ds 800MG/160MG), 1 TAB PO BID Warfarin Sod (Jantoven), 1.25 MG PO DAILY ON SATURDAY Warfarin Sodium (Warfarin Sodium), 2.5 MG PO [id number] Scheduled PRN Bumetanide (Bumetanide), 0.5-1 MG PO DAILY PRN for Fluid Retention Allergies Coded Allergies: Furosemide (Verified Allergy, Unknown, RASH, 10/20/17) Statins (Verified Allergy, Unknown, ., 10/20/17) Ezetimibe (Verified Adverse Reaction, Unknown, nausea,diarrhea, 10/20/17) Physical Exam Vital Signs Date Time Temp Pulse Resp B/P (MAP) Pulse Ox O2 Delivery O2 Flow Rate FiO2 12/01/17 16:00 63 16 161/88 93 12/01/17 14:32 62 157/90 96 74 162/100 64 170/88 12/01/17 14:31 64 16 170/88 93 Room Air 12/01/17 13:26 96 Room Air 12/01/17 13:26 95 Room Air 12/01/17 13:16 70 18 143/90 97 Room Air 12/01/17 12:59 65 12/01/17 12:13 36.6 63 18 175/87 96 Room Air Physical Exam GENERAL: Awake, alert, well-appearing, in no acute distress HENT: Normocephalic, atraumatic. Oropharynx unremarkable. EYES: Normal conjunctiva. Sclera non-icteric. NECK: Supple. No nuchal rigidity. FROM. No JVD. RESPIRATORY: Clear to auscultation. CARDIAC: Regular rate, normal rhythm. Extremities warm and well perfused. Pulses equal. ABDOMEN: Soft, non-distended. No tenderness to palpation. No rebound or guarding. No masses. RECTAL: Deferred. MUSCULOSKELETAL: Chest examination reveals no tenderness. The back is symmetrical on inspection without obvious abnormality. There is no CVA tenderness to palpation. No joint edema. LOWER EXTREMITIES: Calves are equal size bilaterally and non-tender. No edema. No discoloration. NEURO: Normal sensorium. No sensory or motor deficits noted. SKIN: Left groin surgical wounds that are healing well. No rash or jaundice noted. Medical Decision & Procedures ER Provider Diagnostic Interpretation: Radiology results as stated below per my review and radiologist interpretation: CHEST ONE VIEW PORTABLE CLINICAL HISTORY: Generalized weakness COMPARISON STUDY: 10/20/2017 FINDINGS: The heart is enlarged. There are postsurgical changes of a midline sternotomy and valvular replacement. There is a left subclavian dual-chamber central venous pacemaker. There is mild residual thickening. There is no focal pulmonary consolidation.[ IMPRESSION: 1. Cardiomegaly with mild interstitial thickening/edema 2. No evidence of focal pulmonary consolidation Electronically signed by: Buddy Boone M.D. 12/01/2017 1:18 PM Laboratory Results 12/01/17 13:05 Red Blood Count 4.33, Mean Corpuscular Volume 88.5, Mean Corpuscular Hemoglobin 26.6, Mean Corpuscular Hemoglobin Concent 30.0, Mean Platelet Volume 9.1, Neutrophils (%) (Auto) 78.3, Lymphocytes (%) (Auto) 13.8, Monocytes (%) (Auto) 5.4, Eosinophils (%) (Auto) 1.9, Basophils (%) (Auto) 0.3, Neutrophils # (Auto) 5.39, Lymphocytes # (Auto) 0.95, Monocytes # (Auto) 0.37, Eosinophils # (Auto) 0.13, Basophils # (Auto) 0.02 12/01/17 13:05 Test 12/01/17 13:05 12/01/17 13:30 12/01/17 14:30 White Blood Count 6.88 K/uL (4.8-10.8) Red Blood Count 4.33 M/uL (4.2-5.4) Hemoglobin 11.5 g/dL (12.0-16.0) Hematocrit 38.3 % (37-47) Mean Corpuscular Volume 88.5 fL (80-100) Mean Corpuscular Hemoglobin 26.6 pg (25-34) Mean Corpuscular Hemoglobin Concent 30.0 g/dl (32-36) Platelet Count 409 K/uL (130-400) Mean Platelet Volume 9.1 fL (7.4-10.4) Neutrophils (%) (Auto) 78.3 % Lymphocytes (%) (Auto) 13.8 % Monocytes (%) (Auto) 5.4 % Eosinophils (%) (Auto) 1.9 % Basophils (%) (Auto) 0.3 % Neutrophils # (Auto) 5.39 K/uL (1.4-6.5) Lymphocytes # (Auto) 0.95 K/uL (1.2-3.4) Monocytes # (Auto) 0.37 K/uL (0.11-0.59) Eosinophils # (Auto) 0.13 K/uL (0-0.5) Basophils # (Auto) 0.02 K/uL (0-0.2) RDW Standard Deviation 51.8 fL (36.4-46.3) RDW Coefficient of Variation 15.9 % (11.5-14.5) Immature Granulocyte % (Auto) 0.3 % Immature Granulocyte # (Auto) 0.02 K/uL (0.00-0.02) Prothrombin Time 16.5 SECONDS (9.0-12.0) Prothromb Time International Ratio 1.6 (0.9-1.1) Anion Gap 9.0 mmol/L (3-11) Est Creatinine Clear Calc Drug Dose 74.1 ml/min Estimated GFR () 90.2 Estimated GFR (Non- 77.8 BUN/Creatinine Ratio 13.5 (10-20) Calcium Level 9.4 mg/dl (8.5-10.1) Total Bilirubin 0.6 mg/dl (0.2-1) Direct Bilirubin 0.2 mg/dl (0-0.2) Aspartate Amino Transf (AST/SGOT) 17 U/L (15-37) Alanine Aminotransferase (ALT/SGPT) 15 U/L (12-78) Alkaline Phosphatase 84 U/L (45-117) Total Creatine Kinase 44 U/L (26-192) Creatine Kinase MB 1.3 ng/ml (0.5-3.6) Creatine Kinase MB Ratio 3.0 (0-3.0) Troponin I < 0.015 ng/ml (0-0.045) Total Protein 7.3 gm/dl (6.4-8.2) Albumin 3.6 gm/dl (3.4-5.0) Thyroid Stimulating Hormone (TSH) 1.420 uIu/ml (0.300-4.500) Salicylates Level < 1.7 mg/dl (2.8-20) Acetaminophen Level 4 ug/ml (10-30) Influenza Type A Antigen Neg for Influ A (NEG) Influenza Type B Antigen Neg for Influ B (NEG) Urine Color YELLOW Urine Appearance CLEAR (CLEAR) Urine pH 6.5 (4.5-7.5) Urine Specific [place] 1.015 (1.000-1.030) Urine Protein NEG (NEG) Urine Glucose (UA) NEG (NEG) Urine Ketones TRACE (NEG) Urine Occult Blood NEG (NEG) Urine Nitrite POS (NEG) Urine Bilirubin NEG (NEG) Urine Urobilinogen NEG (NEG) Urine Leukocyte Esterase SMALL (NEG) Urine WBC (Auto) 10-30 /hpf (0-5) Urine RBC (Auto) 0-4 /hpf (0-4) Urine Hyaline Casts (Auto) 1-5 /lpf (0-5) Urine Epithelial Cells (Auto) 10-20 /lpf (0-5) Urine Bacteria (Auto) 4+ (NEG) Date/Time Source Procedure Growth Status 12/01/17 14:30 Urine , Clean Catch Urine Culture - Final Escherichia Coli Complete Labs reviewed by ED physician. Medications Administered Medications (Trade) Dose Ordered Sig/Shen Route Start Time Stop Time Status Last Admin Dose Admin Sodium Chloride 1,000 ml @ 999 mls/hr Q1H1M STAT IV 12/01/17 12:42 12/01/17 13:42 DC 12/01/17 12:42 999 MLS/HR Ondansetron HCl (Zofran Inj) 4 mg NOW STAT IV 12/01/17 12:58 12/01/17 12:59 DC 12/01/17 13:32 4 MG Ceftriaxone Sodium (Rocephin Inj) 1 gm NOW STAT IV 12/01/17 15:08 12/01/17 15:09 DC 12/01/17 15:13 1 GM ECG Per My Interpretation Indication: weakness Rate (beats per minute): 63 Rhythm: other (Paced rhythm) Findings: RBBB, other (No ST elevation or depression) ED Course 1235: Past medical records reviewed. The patient was evaluated in room A12B. A complete history and physical examination was performed. 1242: Sodium Chloride 1000 ml @ 999 mls/hr IV 1258: Zofran Inj 4mg IV []: Upon reexamination the patient is resting comfortably. I discussed results and treatment plan with the patient. She verbalizes agreement and understanding. The patient is ready for discharge. Medical Decision Differential diagnosis: Etiologies such as metabolic, infection, hypo/hyperglycemia, electrolyte abnormalities, cardiac sources, intracerebral event, toxicologic, neurologic, as well as others were entertained. This is a 72-year-old female who presents the emergency department complaining of generalized weakness. An IV was established, the patient was given normal saline bolus. I will note that the patient has a normal CBC normal renal profile normal liver profile normal lipase however it does appear that the patient has a urinary tract infection on examination. She was given Rocephin here in the emergency department. She was given Zofran in the emergency department. Medication Reconcilliation Current Medication List: was personally reviewed by me Blood Pressure Screening Patient's blood pressure: Elevated blood pressure Blood pressure disposition: Referred to PCP Impression Primary Impression: Weakness Additional Impression: UTI (urinary tract infection) Scribe Attestation The scribe's documentation has been prepared under my direction and personally reviewed by me in its entirety. I confirm that the note above accurately reflects all work, treatment, procedures, and medical decision making performed by me. Departure Information Dispostion Home / Self-Care Prescriptions Sulfa/Trimethoprim (Bactrim Ds 800MG/160MG) Tab 1 TAB PO BID for 7 Days, #14 TAB Prov: Jere Meeks MD 12/01/17 Ondasetron Odt (ZOFRAN ODT) 4 Mg Tab 4 MG SL Q6H for Nausea, #6 TAB Prov: Jere Meeks MD 12/01/17 Referrals Jason Mixon M.D.([facility]) (PCP) Forms HOME CARE DOCUMENTATION FORM, IMPORTANT VISIT INFORMATION, WORK / SCHOOL INSTRUCTIONS Patient Instructions My [facility] Health Problem Qualifiers Additional Impression: UTI (urinary tract infection) Urinary tract infection type: acute cystitis Hematuria presence: without hematuria Qualified Codes: N30.00 - Acute cystitis without hematuria
[2017-12-01 13:26] VITALS: O2SAT 96
[2017-12-01 13:26] LABS: INR 1.6 (0.9-1.1)
[2017-12-01 13:41] LABS: ALBUMIN 3.6 gm/dl (3.4-5.0); ALT/SGPT 15 U/L (12-78); AST/SGOT 17 U/L (15-37); BLOOD UREA NITROGEN 10 mg/dl (7-18); CALCIUM 9.4 mg/dl (8.5-10.1); CARBON DIOXIDE 26 mmol/L (21-32); CREATININE 0.76 mg/dl (0.60-1.20); GLUCOSE 95 mg/dl (70-99); POTASSIUM 3.9 mmol/L (3.5-5.1); SODIUM 140 mmol/L (136-145)
[2017-12-01 13:51] LABS: ALKALINE PHOSPHATASE 84 U/L (45-117); CKMB 1.3 ng/ml (0.5-3.6); TOTAL PROTEIN 7.3 gm/dl (6.4-8.2)
[2017-12-01] MEDS ORDERED: ONDA4TAB10 SL (14:18)
[2017-12-01 14:36] LABS: INFLUENZA B ANTIGEN Neg for Influ B (NEG)
[2017-12-01] MEDS ORDERED: CEFTRIAXONE SOD INJ 1 GM ADDVIAL IV STA (15:08)
[2017-12-01] MEDS ORDERED: SULF800T23 PO (15:12)
[2017-12-01 16:00] VITALS: BP 161/88; PULSE 63; O2SAT 93
--- NOTE | 2017-12-02 11:49 | Pharmacy Progress Note ---
ED Pharmacist Progress Note Date of Service: Dec 02, 2017. Received call from Dakota at [facility] regarding prescriptions for Bactrim and ondansetron received on Saturday for patient. Bactrim and Ondansetron are contraindicated with patient's medication tikosyn. Preliminary urine culture growing E. coli with sensitivities to follow. Prescriptions for Bactrim and ondansetron cancelled and verbal order given for Keflex 500 mg BID x 7 days. Dakota was going to discuss change with Letty. Case discussed with Dr. Lopez who is the prescribing physician.
== END 2017-12-01 16:00 | disposition home or self-care (01) ==
LOC: C.EDB 12:12 → C.EDA 16:00
DX: N30.00 Acute cystitis without hematuria (principal); R42 Dizziness and giddiness; I48.0 Paroxysmal atrial fibrillation; I10 Essential (primary) hypertension; Z79.01 Long term (current) use of anticoagulants; Z86.79 Personal history of other diseases of the circulatory system; Z95.2 Presence of prosthetic heart valve; Z88.8 Allergy status to other drugs, medicaments and biological substances; Z83.3 Family history of diabetes mellitus; Z82.49 Family history of ischemic heart disease and other diseases of the circulatory system

== ENCOUNTER 2019-09-10 07:02 | Inpatient (IN) ==
[2019-09-10] MEDS ORDERED: SODIUM CHLORIDE 0.9% 1000ML 500 ML IV ONE (07:28)
--- NOTE | 2019-09-10 07:58 | Emergency Department Note ---
History of Present Illness General Chief complaint: Respiratory Problems Stated complaint: CAN'T BREATHE Time Seen by Provider: 09/10/19 07:11 History of Present Illness Maximum Pain Intensity: 0 74-year-old female with significant history of porcine aortic valve replacement, dual-chamber pacemaker, treatment and paroxysmal atrial fibrillation and complete heart block, who presents to the emergency department with complaint of weakness and shortness of breath over the past 3 weeks. The patient reports that she went to a Thanksgiving dinner and was exposed to cats. She reports an allergy to cats. The patient reports that she did initially have wheezing that quickly resolved, but had persistent shortness of breath. The patient reports that she was eventually seen by her PCP who prescribed prednisone it did not provide any relief. She has been utilizing an inhaler as well without relief. The patient reports a prior history of asthma as well. The patient was last seen by her frit burner, Dr. Benz, approximately 3.5 months ago without any change in treatment plan. The patient denies prior history of congestive heart failure. She has not noticed any peripheral edema or orthopnea. She does report increasing shortness of breath and weakness with exertion. She denies any recent upper respiratory infections, cough, sore throat, sinus congestion or runny nose. She denies any current discomfort. Home Medications Home Medications Medication Instructions Recorded Confirmed Type digoxin 125 mcg (0.125 mg) tablet 125 mcg PO QAM #90 tab 05/11/19 09/10/19 History glucosamine-chondroitin 500 mg-400 1 cap PO BID cap 05/11/19 09/10/19 History mg capsule metoprolol succinate 100 mg 100 mg PO BID tab 05/11/19 09/10/19 History tablet,extended release 24 hr multivitamin with iron 1 tab PO QAM 05/11/19 09/10/19 History bumetanide 0.5 mg PO DAILY 09/10/19 09/10/19 History levalbuterol tartrate [Xopenex HFA] 1 puff INHALATION Q4H PRN 09/10/19 09/10/19 History warfarin 2.5 mg PO UD 09/10/19 09/10/19 History Allergies Allergy/AdvReac Type Severity Reaction Status Date / Time furosemide Allergy Unknown RASH Verified 09/10/19 08:21 lactose Allergy Unknown Unknown Unverified 09/10/19 08:21 Diglhqs-Abm-Pgs Reductase Allergy Unknown . Verified 09/10/19 08:21 Inhibitor ezetimibe AdvReac Unknown nausea,diar Verified 09/10/19 08:21 rabia Past Med/Surg History Medical History Diastolic heart failure Dyslipidemia HTN (hypertension) (Chronic) Pacemaker malfunction (Resolved 05/26/14) Paroxysmal a-fib (Chronic) Surgical History (Updated 09/10/19 @ 16:26 by Hung Love) History of aortic valve replacement History of hysterectomy History of radiofrequency ablation procedure for cardiac arrhythmia Hx of tonsillectomy S/P AVR (aortic valve replacement) Family History Other Coronary heart disease Diabetes Social History Preferred Language: Dominican Communication Ability: Effective Brim Stiffener Required: No Beliefs That Will Affect Care: None marital status: Single Current Living Situation: Alone current occupational status: retired Other Information That Helps Us Care for You: No Feels Safe at Home: Yes Safety Concerns: Feels Safe At This Time Smoking Status: Never smoker Do You Dip or Chew Tobacco: No ; Second Hand Exposure: No ; Tobacco Cessation Education Requested by Patient: No Hx Alcohol Use: No Hx Substance Use: No Review of Systems 10 system review was performed and was negative except for pertinent positives and negatives as indicated in history of present illness Physical Exam Vital Signs Vital Signs - 24 hr 09/10/19 07:06 09/10/19 07:30 09/10/19 07:52 Temperature 36.7 C Temperature Source Oral Pulse Rate 81 73 Pulse Rate [Apical] Pulse Rate [Left Finger] Pulse Rate from SpO2 Sensor 71 Pulse Rhythm [Left Finger] Pulse Strength [Left Finger] Respiratory Rate 22 13 Respiratory Effort / Characteristics Short of Breath Respiratory Depth Normal Respiratory Pattern Regular Blood Pressure 134/74 106/44 L Blood Pressure [Left Arm] Blood Pressure Mean 94 84 Blood Pressure Mean [Left Arm] Blood Pressure Position [Left Arm] Pulse Oximetry 95 97 96 Oxygen Delivery Method Room Air Room Air Sepsis Recent Fever Within 48 Hours No Sepsis Action Taken by Nursing No Action Required 09/10/19 07:55 09/10/19 08:00 09/10/19 08:01 Temperature 36.7 C Temperature Source Oral Pulse Rate 74 74 70 Pulse Rate [Apical] 72 Pulse Rate [Left Finger] Pulse Rate from SpO2 Sensor 75 74 70 Pulse Rhythm [Left Finger] Pulse Strength [Left Finger] Respiratory Rate 13 12 13 Respiratory Effort / Characteristics Short of Breath Respiratory Depth Normal Respiratory Pattern Regular Blood Pressure 128/56 L Blood Pressure [Left Arm] 128/56 L Blood Pressure Mean 103 Blood Pressure Mean [Left Arm] 80 Blood Pressure Position [Left Arm] Lying Pulse Oximetry 97 97 97 Oxygen Delivery Method Room Air Sepsis Recent Fever Within 48 Hours Sepsis Action Taken by Nursing 09/10/19 08:15 09/10/19 08:30 09/10/19 08:31 Temperature Temperature Source Pulse Rate 74 73 84 Pulse Rate [Apical] Pulse Rate [Left Finger] Pulse Rate from SpO2 Sensor 73 73 75 Pulse Rhythm [Left Finger] Pulse Strength [Left Finger] Respiratory Rate 18 21 23 Respiratory Effort / Characteristics Respiratory Depth Respiratory Pattern Blood Pressure 114/70 Blood Pressure [Left Arm] Blood Pressure Mean 93 Blood Pressure Mean [Left Arm] Blood Pressure Position [Left Arm] Pulse Oximetry 96 96 96 Oxygen Delivery Method Sepsis Recent Fever Within 48 Hours Sepsis Action Taken by Nursing 09/10/19 08:32 09/10/19 08:45 09/10/19 09:00 Temperature Temperature Source Pulse Rate 73 77 74 Pulse Rate [Apical] Pulse Rate [Left Finger] Pulse Rate from SpO2 Sensor 79 73 73 Pulse Rhythm [Left Finger] Pulse Strength [Left Finger] Respiratory Rate 13 18 16 Respiratory Effort / Characteristics Respiratory Depth Respiratory Pattern Blood Pressure Blood Pressure [Left Arm] Blood Pressure Mean Blood Pressure Mean [Left Arm] Blood Pressure Position [Left Arm] Pulse Oximetry 98 98 99 Oxygen Delivery Method Sepsis Recent Fever Within 48 Hours Sepsis Action Taken by Nursing 09/10/19 09:01 09/10/19 09:15 09/10/19 09:30 Temperature Temperature Source Pulse Rate 78 84 78 Pulse Rate [Apical] Pulse Rate [Left Finger] Pulse Rate from SpO2 Sensor 72 74 74 Pulse Rhythm [Left Finger] Pulse Strength [Left Finger] Respiratory Rate 15 20 17 Respiratory Effort / Characteristics Respiratory Depth Respiratory Pattern Blood Pressure 133/61 Blood Pressure [Left Arm] Blood Pressure Mean 83 Blood Pressure Mean [Left Arm] Blood Pressure Position [Left Arm] Pulse Oximetry 98 98 96 Oxygen Delivery Method Sepsis Recent Fever Within 48 Hours Sepsis Action Taken by Nursing 09/10/19 09:31 09/10/19 09:32 09/10/19 09:50 Temperature Temperature Source Pulse Rate 70 84 76 Pulse Rate [Apical] Pulse Rate [Left Finger] Pulse Rate from SpO2 Sensor 71 80 72 Pulse Rhythm [Left Finger] Pulse Strength [Left Finger] Respiratory Rate 19 19 16 Respiratory Effort / Characteristics Respiratory Depth Respiratory Pattern Blood Pressure 127/54 L Blood Pressure [Left Arm] Blood Pressure Mean 87 Blood Pressure Mean [Left Arm] Blood Pressure Position [Left Arm] Pulse Oximetry 98 98 97 Oxygen Delivery Method Sepsis Recent Fever Within 48 Hours Sepsis Action Taken by Nursing 09/10/19 10:00 09/10/19 10:01 09/10/19 10:15 Temperature Temperature Source Pulse Rate 72 77 70 Pulse Rate [Apical] Pulse Rate [Left Finger] Pulse Rate from SpO2 Sensor 70 77 69 Pulse Rhythm [Left Finger] Pulse Strength [Left Finger] Respiratory Rate 14 18 19 Respiratory Effort / Characteristics Respiratory Depth Respiratory Pattern Blood Pressure 105/65 Blood Pressure [Left Arm] Blood Pressure Mean 78 Blood Pressure Mean [Left Arm] Blood Pressure Position [Left Arm] Pulse Oximetry 98 98 98 Oxygen Delivery Method Sepsis Recent Fever Within 48 Hours Sepsis Action Taken by Nursing 09/10/19 11:09 09/10/19 11:41 09/10/19 11:45 Temperature Temperature Source Pulse Rate 70 72 70 Pulse Rate [Apical] Pulse Rate [Left Finger] Pulse Rate from SpO2 Sensor 69 Pulse Rhythm [Left Finger] Pulse Strength [Left Finger] Respiratory Rate 19 18 19 Respiratory Effort / Characteristics Respiratory Depth Respiratory Pattern Blood Pressure 115/65 Blood Pressure [Left Arm] Blood Pressure Mean 81 Blood Pressure Mean [Left Arm] Blood Pressure Position [Left Arm] Pulse Oximetry 98 Oxygen Delivery Method Sepsis Recent Fever Within 48 Hours Sepsis Action Taken by Nursing 09/10/19 11:54 09/10/19 12:00 Temperature 36.3 C L Temperature Source Oral Pulse Rate 75 Pulse Rate [Apical] Pulse Rate [Left Finger] 78 Pulse Rate from SpO2 Sensor Pulse Rhythm [Left Finger] Regular Pulse Strength [Left Finger] Normal Respiratory Rate 18 18 Respiratory Effort / Characteristics Non-Labored Spontaneous Respiratory Depth Normal Respiratory Pattern Regular Blood Pressure Blood Pressure [Left Arm] 149/78 H Blood Pressure Mean Blood Pressure Mean [Left Arm] 101 Blood Pressure Position [Left Arm] Sitting Pulse Oximetry 97 Oxygen Delivery Method Room Air Sepsis Recent Fever Within 48 Hours Sepsis Action Taken by Nursing CONSTITUTIONAL: Healthy and well nourished. Alert and oriented X 3. Patient does not appear in any acute distress. HEENT: Normocephalic, atraumatic. Pupils equal, round and reactive. No scleral icterus or conjunctival injection/pallor. NECK: Full active range of motion without discomfort. No obvious JVD or carotid bruits. LYMPHATICS: No cervical chain adenopathy. RESPIRATORY: Clear to auscultation bilaterally with no wheezing, crackles, rhonchi or stridor. CARDIOVASCULAR: Irregular rate and rhythm with grade 3 out of 6 systolic and diastolic murmurs, best heard at the right upper sternal border. No obvious rubs or gallops. GASTROINTESTINAL: Bowel sounds present in all quadrants. MUSCULOSKELETAL: Full range of motion of all joints without discomfort. INTEGUMENTARY: No rash or other significant dermatologic conditions noted. HEMATOLOGIC: No ecchymosis or petechiae. PSYCHIATRIC: Positive affect. NEUROLOGIC: No focal neurologic deficits noted. Course Course Patient history and physical exam were performed. Nurse's notes were reviewed. Vital signs were reviewed and were normal. IV access was established, and labs were drawn. The patient was hydrated with a liter of normal saline. Review of labs shows a normal white count with mild bandemia and left shift. INR is slightly subtherapeutic at 2.3. D-dimer was normal. Troponin is mildly elevated at 0.061. BNP was also elevated at 6141. Electrolytes were otherwise grossly normal. ALT is mildly elevated. TSH was also elevated at 4.8. Digoxin level was normal at 0.9. A portable chest x-ray shows cardiomegaly with mild pulmonary vascular congestion. Trace bilateral pleural effusions were also noted. ECG shows atrial fibrillation with frequent AV dual paced complexes, left axis deviation and right bundle branch block. It is noted that the patient's last ECG in our system was from 12/01/2017, at which time the patient actually had atrial pacing. Findings were discussed with Dr. Guzmán, ED attending physician, who recommended consultation with [facility] for further admission. The patient was admitted under the care of Dr. Burdick. The patient was on medical insurance verifier throughout her emergency department evaluation, and did not have any dysrhythmias or other concerning monitor findings. Please see the hospitalist and frit burner dictations for further treatment and final disposition. Administered Medications Digoxin (Lanoxin) 0.125 mg PO DAILY@1600 HITESH Stop: 10/10/19 15:59 Last Admin: 09/10/19 16:00 Dose: Not Given Documented by: [id number] Warfarin Sodium (Coumadin) 1.25 mg PO SuTuThSa@1600 HITESH Stop: 10/10/19 15:59 Last Admin: 09/10/19 16:00 Dose: 1.25 mg Documented by: [id number] Discontinued Medications Sodium Chloride (Nss 1000ml) 500 mls @ 999 mls/hr IV .Q31M ONE Stop: 09/10/19 07:58 Last Infusion: 09/10/19 08:17 Dose: 0 mls/hr Documented by: [id number] Admin: 09/10/19 07:46 Dose: 999 mls/hr Documented by: [id number] Bumetanide 0.5 mg/ Syringe 2 mls @ 4 mls/min IV ONE ONE Stop: 09/10/19 12:17 Last Admin: 09/10/19 12:35 Dose: 4 mls/min Documented by: [id number] Medical Decision Making Medical Records Attestation: I reviewed the patient's medical records. Home Medications Current Medication List: was personally reviewed by me Laboratory Data Attestation: I reviewed the patient's lab results. Result diagrams: 09/10/19 07:44 09/10/19 07:44 Lab Results 09/10/19 09/10/19 09/10/19 Range/Units 07:44 07:44 07:44 WBC 9.36 (4.8-10.8) K/uL RBC 4.55 (4.2-5.4) M/uL Hgb 12.6 (12.0-16.0) g/dL Hct 40.3 (37-47) % MCV 88.6 (80-100) fL MCH 27.7 (25-34) pg MCHC 31.3 L (32-36) g/dL RDW Std Deviation 50.8 H (36.4-46.3) fL RDW Coeff of Bob 16.1 H (11.5-14.5) % Plt Count 375 (130-400) K/uL MPV 9.5 (7.4-10.4) fL Immature Gran % (Auto) 0.5 % Neut % (Auto) 70.3 % Lymph % (Auto) 15.7 % [place] % (Auto) 11.1 % Eos % (Auto) 2.4 % Baso % (Auto) 0.0 % Immature Gran # (Auto) 0.05 H (0.00-0.02) K/uL Neut # (Auto) 6.58 H (1.4-6.5) K/uL Lymph # (Auto) 1.47 (1.2-3.4) K/uL [place] # (Auto) 1.04 H (0.11-0.59) K/uL Eos # (Auto) 0.22 (0-0.5) K/uL Baso # (Auto) 0.00 (0-0.2) K/uL PT 22.5 H (9.0-12.0) Seconds INR 2.3 H (0.9-1.1) APTT 31.3 H (21.0-31.0) Seconds PTT Ratio 1.2 D-Dimer 400 (0-500) ug/L FEU Sodium 144 (136-145) mmol/L Potassium 3.9 (3.5-5.1) mmol/L Chloride 110 H (98-107) mmol/L Carbon Dioxide 30 (21-32) mmol/L Anion Gap 5.0 (3-11) BUN 29 H (7-18) mg/dl Creatinine 1.13 (0.6-1.2) mg/dl Est Cr Clr Drug Dosing 44.4 ml/min Est GFR ( Amer) 55.1 Est GFR (Non-Af Amer) 47.5 BUN/Creatinine Ratio 25.2 H (10-20) Glucose 95 (70-99) mg/dl Calcium 9.7 (8.5-10.1) mg/dl Magnesium 2.2 (1.8-2.4) mg/dl Total Bilirubin 0.8 (0.2-1) mg/dl AST 32 (15-37) U/L ALT 93 H (12-78) U/L Alkaline Phosphatase 72 (45-117) U/L Troponin I 0.061 H* (0-0.045) ng/ml NT-Pro-B Natriuret Pep 6141 H (0-900) pg/ml Total Protein 6.4 (6.4-8.2) gm/dl Albumin 3.2 L (3.4-5.0) gm/dl Globulin 3.2 (2.5-4.0) gm/dl Albumin/Globulin Ratio 1.0 (0.9-2) TSH 4.800 H (0.300-4.500) uIu/ml Digoxin (0.8-2.0) ng/ml 09/10/19 Range/Units 07:44 WBC (4.8-10.8) K/uL RBC (4.2-5.4) M/uL Hgb (12.0-16.0) g/dL Hct (37-47) % MCV (80-100) fL MCH (25-34) pg MCHC (32-36) g/dL RDW Std Deviation (36.4-46.3) fL RDW Coeff of Bob (11.5-14.5) % Plt Count (130-400) K/uL MPV (7.4-10.4) fL Immature Gran % (Auto) % Neut % (Auto) % Lymph % (Auto) % [place] % (Auto) % Eos % (Auto) % Baso % (Auto) % Immature Gran # (Auto) (0.00-0.02) K/uL Neut # (Auto) (1.4-6.5) K/uL Lymph # (Auto) (1.2-3.4) K/uL [place] # (Auto) (0.11-0.59) K/uL Eos # (Auto) (0-0.5) K/uL Baso # (Auto) (0-0.2) K/uL PT (9.0-12.0) Seconds INR (0.9-1.1) APTT (21.0-31.0) Seconds PTT Ratio D-Dimer (0-500) ug/L FEU Sodium (136-145) mmol/L Potassium (3.5-5.1) mmol/L Chloride (98-107) mmol/L Carbon Dioxide (21-32) mmol/L Anion Gap (3-11) BUN (7-18) mg/dl Creatinine (0.6-1.2) mg/dl Est Cr Clr Drug Dosing ml/min Est GFR ( Amer) Est GFR (Non-Af Amer) BUN/Creatinine Ratio (10-20) Glucose (70-99) mg/dl Calcium (8.5-10.1) mg/dl Magnesium (1.8-2.4) mg/dl Total Bilirubin (0.2-1) mg/dl AST (15-37) U/L ALT (12-78) U/L Alkaline Phosphatase (45-117) U/L Troponin I (0-0.045) ng/ml NT-Pro-B Natriuret Pep (0-900) pg/ml Total Protein (6.4-8.2) gm/dl Albumin (3.4-5.0) gm/dl Globulin (2.5-4.0) gm/dl Albumin/Globulin Ratio (0.9-2) TSH (0.300-4.500) uIu/ml Digoxin 0.9 (0.8-2.0) ng/ml Imaging Data Attestation: I personally reviewed and interpreted this imaging study as follows: My Impression: My interpretation of a two-view chest x-ray shows cardiomegaly without evidence for alexis failure pattern, pneumothorax or consolidations. Radiologist report was reviewed. ECG Data Attestation: I personally reviewed and interpreted this ECG as follows: Indication: + SOB/dyspnea and + weakness Rate (beats per minute): 77 Rhythm: + atrial fibrillation ECG Intervals/blocks: + Right Bundle branch block ECG [place]: + Left axis deviation Comparison ECG Date: from (12/01/2017) Change: the following changes noted (Electronic ventricular pacemaker has replaced electronic atrial pacemaker) Blood Pressure Blood Pressure Findings: Normal blood pressure Additional Comments: XR chest 2V PA/lateral HISTORY: Dyspnea, SOB COMPARISON: Chest 12/01/2017. FINDINGS: No pneumothorax. Trace bilateral pleural effusions. Cardiomegaly persist. There is an aortic valve prosthesis, poststernotomy changes, not and a left-sided pacemaker/defibrillator. There is mild pulmonary vascular congestion without overt edema. This has improved. No new focal lung consolidations to suggest pneumonia. IMPRESSION: 1. Cardiomegaly with slight improvement in the mild pulmonary vascular congestion. 2. Trace bilateral pleural effusions. MDM Narrative Patient presents to the emergency department with complaint of dyspnea on exertion and shortness of breath for the past few weeks. The patient reports that she was exposed to cat dander at Thanksgiving time, and has not recovered since then. She denies any recent upper respiratory infections. Review of an ECG shows atrial fibrillation. Patient does have a mildly elevated troponin, therefore acute coronary event cannot be ruled out. The patient does have notable 3 out of 6 systolic and diastolic murmur at the right upper sternal border, concerning for aortic insufficiency. This is also concerning given that the patient has a porcine aortic valve replacement. The patient does not have any clinical exam findings consistent with major congestive heart failure event. Impression & Plan Aortic valve insufficiency, History of aortic valve replacement with porcine valve, Shortness of breath, Dyspnea on exertion Discharge Plan Visit Data *Final* Discharge Date/Time: 09/10/19 13:45 Chief Complaint: Respiratory Problems Stated Complaint: CAN'T BREATHE ED Provider: Donal Guzmán ED Midlevel Provider: Hung Love Discharge Problem: Aortic valve insufficiency, History of aortic valve replacement with porcine valve, Shortness of breath, Dyspnea on exertion Patient Disposition: Admitted As Inpatient Discharge Instructions Interventions: ED Discharge Assessment Last Done: 09/10/19 13:45 Discharge Problem: Aortic valve insufficiency Qualifiers: Cardiac valve disease etiology: nonrheumatic Qualified Code(s): I35.1 - Nonrheumatic aortic (valve) insufficiency
[2019-09-10 08:10] LABS: Eosinophils # (auto) 0.22 K/uL (0-0.5); Eosinophils % (auto) 2.4 %; Hematocrit (blood only) 40.3 % (37-47); Hemoglobin 12.6 g/dL (12.0-16.0); Immature Granulocytes # (auto) 0.05 K/uL (0.00-0.02); Immature Granulocytes % (auto) 0.5 %; Lymphocytes # (auto) 1.47 K/uL (1.2-3.4); Lymphocytes % (auto) 15.7 %; Mean Corpuscular Hemoglobin 27.7 pg (25-34); Mean Corpuscular Hgb Conc 31.3 g/dL (32-36); Mean Corpuscular Volume 88.6 fL (80-100); Mean Platelet Volume 9.5 fL (7.4-10.4); Monocytes # (auto) 1.04 K/uL (0.11-0.59); Monocytes % (auto) 11.1 %; Neutrophils # (auto) 6.58 K/uL (1.4-6.5); Neutrophils % (auto) 70.3 %; Platelet Count 375 K/uL (130-400); RDW Coefficient of Variation 16.1 % (11.5-14.5); RDW Standard Deviation 50.8 fL (36.4-46.3); Red Blood Count 4.55 M/uL (4.2-5.4); White Blood Count 9.36 K/uL (4.8-10.8)
[2019-09-10 08:24] LABS: D Dimer 400 ug/L FEU (0-500); INR 2.3 (0.9-1.1); Partial Thromboplastin Ratio 1.2; Partial Thromboplastin Time 31.3 Seconds (21.0-31.0); Prothrombin Time 22.5 Seconds (9.0-12.0)
[2019-09-10 08:25] LABS: Albumin Level 3.2 gm/dl (3.4-5.0); BUN Creatinine Ratio 25.2 (10-20); Calcium 9.7 mg/dl (8.5-10.1); Creatinine Clr Calc Pharmacy 44.4 ml/min; Est GFR (African American) 55.1; Est GFR (Non-African American) 47.5; Magnesium 2.2 mg/dl (1.8-2.4); Potassium 3.9 mmol/L (3.5-5.1)
[2019-09-10 08:37] LABS: Bilirubin,Total 0.8 mg/dl (0.2-1); Globulin 3.2 gm/dl (2.5-4.0); Thyroid Stimulating Hormone 4.8 uIu/ml (0.300-4.500); Total Protein 6.4 gm/dl (6.4-8.2); Troponin I 0.061 ng/ml (0-0.045)
--- NOTE | 2019-09-10 09:13 | XRay Report ---
XR chest 2V PA/lateral HISTORY: Dyspnea, SOB COMPARISON: Chest 12/01/2017. FINDINGS: No pneumothorax. Trace bilateral pleural effusions. Cardiomegaly persist. There is an aorti c valve prosthesis, poststernotomy changes, not and a left-sided pacemaker/defibrillator. There is mi ld pulmonary vascular congestion without overt edema. This has improved. No new focal lung consolidat ions to suggest pneumonia. IMPRESSION: 1. Cardiomegaly with slight improvement in the mild pulmonary vascular congestion. 2. Trace bilateral pleural effusions. ACT 112: Negative or not required by law. Electronically signed by: Kwame Holden M.D. 09/10/2019 9:11 AM
--- NOTE | 2019-09-10 09:43 | Emergency Department Note ---
ED Visit Note Patient was seen by our PA/WOUND SPECIALIST. I was involved in the patient's care and did evaluate the patient myself. I was involved in the care throughout the ER stay. The patient presents with shortness of breath. Work-up here does show an elevated troponin. EKG did not show any acute cardiac ischemia. Certainly, her dyspnea may be the result of a cardiac issue. Given her complaints, given the troponin elevation, hospitalization was felt warranted. Of note, a chest film was done, there was no CHF. .
--- NOTE | 2019-09-10 12:09 | History & Physical Report ---
Date of Service September 10, 2019 Assessment & Plan (1) SOB (shortness of breath): (2) Acute on chronic diastolic (congestive) heart failure: (3) Elevated troponin: Pt is 74 y/o F with PMH atrial arrhythmias, AV block s/p pacemaker, paroxysmal atrial fibrillation on Coumadin, h/o cardioversion, Bioprosthetic aortic valve replacement, chronic diastolic heart failure, dyslipidemia presented to ER with c/o exertional SOB with walking x 3 weeks. Also c/o PND. Denies CP, increased BLE edema, weight gain, dizziness, palpitations, cough. In ER vitals stable. Troponin: 0.06, BNP: 6141, D-Dimer: 400, INR: 2.3, no leukocytosis, Digoxin: 0.9, EKG: afib, paced complexes, RBBB, rate 77 CXR: Cardiomegaly with slight improvement in the mild pulmonary vascular congestion. Trace bilateral pleural effusions. DDX: fluid overload, arrhythmia, pacer malfunction, demand ischemia, ACS -Monitor Vitals -Repeat EKG in am -Will trend troponin -Dose IV Bumex now -Monitor I's & O's -Plan to continue daily oral bumex tomorrow -Echo -lipid panel in am. H/O statin intolerance -Continue metoprolol -Pacemaker interrogation -Cardiology consult (4) Paroxysmal a-fib: (5) Anticoagulated: Current rate controlled INR: 2.3 Digoxin level WNL at 0.9 -Continue metoprolol, digoxin -Continue Coumadin -Monitor INR (6) History of artificial heart valve: H/O bioprosthetic valve replacement in 2004 H/O echo in 04/2019: EF: 55%, aortic bioprosthesis, mild paravalvular aortic valve prosthesis regurgitation, moderate tricuspid regurgitation (7) Cardiac pacemaker in situ: -Pacer interrogation (8) Dyslipidemia: H/O statin intolerance -Lipid panel in am DVT Prophylaxis -On Coumadin, INR therapeutic Full Code as per discussion with pt Follows with Dr Mixon for routine care Pt was seen and care coordinated with Dr Burdick. See addendum History of Present Illness Chief Complaint: SOB Primary Care Provider: Jason Mixon MD Pt is 74 y/o F with PMH atrial arrhythmias, AV block s/p pacemaker, paroxysmal atrial fibrillation on Coumadin, h/o cardioversion,Bioprosthetic aortic valve replacement, chronic diastolic heart failure, dyslipidemia presented to ER with c/o SOB x 3 weeks. Patient states symptoms started after Thanksgiving. Reports shortness of breath with exertion and is short of breath which is walking throughout house. Patient states waking up in the middle night feeling short of breath. She reports when she does wake up she looks at her fitbit and has not noticed any tachycardia. Denies palpitations. Reports feeling generalized "wiped out". Initially she thought symptoms were asthma/bronchitis secondary to being around cats. Patient was given Xopenex and did prednisone taper without any relief. Denies chest pain, dizziness, palpitations. Pt reports lost 40 pounds with weight watchers. Patient reports weighs herself daily and has not noticed any weight gain. Denies any noted increased lower extremity edema. Denies cough, fever, chills, diaphoresis, N/V/D/C, RIOS, dizziness, syncope, vision changes, neck pain, sore throat, choking, otalgia, rhinorrhea, abdominal pain, paresthesias, extremity edema, rashes, urinary symptoms. Follows with Dr Hernandez and Dr Benz. Last pacer check revealed pt has paroxysmal atrial fibrillation, about a third of the time. 05/14/2019 echo: EF: 55%, aortic bioprosthesis, mild paravalvular aortic valve prosthesis regurgitation, moderate tricuspid regurgitation Reported hx cardiac cath years ago with no CAD. Allergies Allergy/AdvReac Type Severity Reaction Status Date / Time furosemide Allergy Unknown RASH Verified 09/10/19 08:21 lactose Allergy Unknown Unknown Unverified 09/10/19 08:21 Bzccpme-Rjc-Kyd Reductase Allergy Unknown . Verified 09/10/19 08:21 Inhibitor ezetimibe AdvReac Unknown nausea,diar Verified 09/10/19 08:21 rabia Home Medications Home Medications Medication Instructions Recorded Confirmed Type digoxin 125 mcg (0.125 mg) tablet 125 mcg PO QAM #90 tab 05/11/19 09/10/19 History glucosamine-chondroitin 500 mg-400 1 cap PO BID cap 05/11/19 09/10/19 History mg capsule metoprolol succinate 100 mg 100 mg PO BID tab 05/11/19 09/10/19 History tablet,extended release 24 hr multivitamin with iron 1 tab PO QAM 05/11/19 09/10/19 History bumetanide 0.5 mg PO DAILY 09/10/19 09/10/19 History levalbuterol tartrate [Xopenex HFA] 1 puff INHALATION Q4H PRN 09/10/19 09/10/19 History warfarin 2.5 mg PO UD 09/10/19 09/10/19 History Past Med/Surg History Medical History Diastolic heart failure Dyslipidemia Surgical History History of hysterectomy History of radiofrequency ablation procedure for cardiac arrhythmia Hx of tonsillectomy Family History Other Coronary heart disease Diabetes Social History Preferred Language: Indonesian Communication Ability: Effective 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 Beliefs That Will Affect Care: None Current Living Situation: Alone Other Information That Helps Us Care for You: No Feels Safe at Home: Yes Safety Concerns: Feels Safe At This Time Smoking Status: Never smoker Do You Dip or Chew Tobacco: No ; Second Hand Exposure: No ; Tobacco Cessation Education Requested by Patient: No Hx Alcohol Use: No Hx Substance Use: No Review of Systems Review of Systems: All systems reviewed & are unremarkable except as noted in HPI & below Physical Exam Physical Exam: General: no distress, WDWN Head: normocephalic, atraumatic Eyes: PERRL, EOM's intact, conjunctiva non-injected, anicteric ENT: normal inspection external ears, nose, mucous membranes moist Neck: supple, trachea midline Lungs: clear, no respiratory distress, no wheezing/rhonchi/rales CV: irregularly irregular, rate 80, +valve sounds, no JVD, 1+ pretibial edema Abd: normal BS, soft, non-tender Ext: no cyanosis, no calf tenderness Neuro: A&O x 3, no focal deficits noted, normal affect Skin: warm, dry Results & Data Vital Signs (Past 12 Hours) Vital Signs Temp Pulse Pulse Resp BP BP Pulse Ox 09/10/19 11:09 70 19 115/65 98 12/19/19 10:15 70 19 98 09/10/19 10:01 77 18 105/65 98 09/10/19 10:00 72 14 98 09/10/19 09:50 76 16 97 09/10/19 09:32 84 19 98 09/10/19 09:31 70 19 127/54 L 98 09/10/19 09:30 78 17 96 09/10/19 09:15 84 20 98 09/10/19 09:01 78 15 133/61 98 09/10/19 09:00 74 16 99 09/10/19 08:45 77 18 98 09/10/19 08:32 73 13 98 09/10/19 08:31 84 23 114/70 96 09/10/19 08:30 73 21 96 09/10/19 08:15 74 18 96 09/10/19 08:01 70 13 97 09/10/19 08:00 36.7 C 74 72 12 128/56 L 128/56 L 97 09/10/19 07:55 74 13 97 09/10/19 07:52 73 13 106/44 L 96 09/10/19 07:30 97 09/10/19 07:06 36.7 C 81 22 134/74 95 Laboratory Results Short CBC 09/10/19 Range/Units 07:44 WBC 9.36 (4.8-10.8) K/uL Hgb 12.6 (12.0-16.0) g/dL Hct 40.3 (37-47) % Plt Count 375 (130-400) K/uL BMP 09/10/19 07:44 Sodium 144 Potassium 3.9 Chloride 110 H Carbon Dioxide 30 BUN 29 H Creatinine 1.13 Glucose 95 Calcium 9.7 Cardiac Enzymes 09/10/19 Range/Units 07:44 Troponin I 0.061 H* (0-0.045) ng/ml Liver Function 09/10/19 Range/Units 07:44 Total Bilirubin 0.8 (0.2-1) mg/dl AST 32 (15-37) U/L ALT 93 H (12-78) U/L Alkaline Phosphatase 72 (45-117) U/L Albumin 3.2 L (3.4-5.0) gm/dl Diagnostic Findings CXR: IMPRESSION: 1. Cardiomegaly with slight improvement in the mild pulmonary vascular congestion. 2. Trace bilateral pleural effusions. ECG Rate (beats per minute): 77 Rhythm: atrial fibrillation Findings: + RBBB Supervising Physician Co-Signing Physician Notes Pt was seen and examined. Agreed with Tamara HERNANDEZ exam, assessment and plan. 74 y/o F with PMH atrial arrhythmias, AV block s/p pacemaker, paroxysmal atrial fibrillation on Coumadin, h/o cardioversion,Bioprosthetic aortic valve replacement, chronic diastolic heart failure, dyslipidemia presented to ER with worsening SOB. Pt said that SOB is worst with minimal exertion. Denies any weight gain. Denies any any chest pain, palpitation, dizziness and fever. CXR showed cardiomegaly with slight improvement in the mild pulmonary vascular congestion. Trace bilateral pleural effusions. ProBNP above 6K and troponin 0.061. EKG showed paced with Afib. Will give IV Bumex 0.5 mg IV x1, then will reassess for additional diuretic. Will consult cardiology. Will get a resting ECHO and trend troponin. Monitor I/O and fluid restriction. Continue monitor closely. MD Gennaro
[2019-09-10] MEDS ORDERED: BUMETANIDE 0.5 MG in SYRINGE 0 ML IV ONE ×2 (12:16→22:00)
[2019-09-10] MEDS ORDERED: ACETAMINOPHEN 325 MG TAB PO PRN (14:09)
--- NOTE | 2019-09-10 14:43 | Cardiology Consultation ---
Date of Consultation September 10, 2019 Assessment & Plan (1) Acute on chronic diastolic (congestive) heart failure: Symptoms reflective of increased pulmonary pressures and congestive failure. Somewhat improved after single dose of IV furosemide Suspect prosthetic aortic valvular insufficiency is contributing to current complaints reflecting aging and failing aortic valve prosthesis with at least moderate and probable severe aortic insufficiency present. Blood cultures will be ordered exclude infectious etiology Patient be kept n.p.o. for potential transesophageal echocardiogram depending on clinical course Agree with ongoing diuresis (2) Aortic valve insufficiency: (3) S/P AVR (aortic valve replacement): Liz Gates bioprosthesis placed 2004 with newly observed worsening aortic insufficiency (4) A-fib: Past paroxysmal with aggressive past interventions to maintain sinus rhythm. Per report most recent pacer checks approximate 50% A. fib burden Reinterrogate device (5) Cardiac pacemaker in situ: Patient with [employer] device in place. Will interrogate device assess persistence of atrial fibrillation currently in atrial fibrillation with intermittent pacing History of Present Illness Attending Physician: Derik Burdick MD History of Present Illness Patient is a 74-year-old female with past history and ongoing issues ASSESSMENT: 1. Paroxysmal atrial flutter/fibrillation - history of PVI ablation 12/2014 and external DCCV 02/11/15 and 03/15/15. - repeat PVI ablation 09/2017 - amiodarone discontinued by electrophysiology in favor of digoxin 08/2018 - appropriately anticoagulated with Coumadin 2. HTN - controlled with borderline hypotension and intermittent episodes of lightheadedness 3. History of bicuspid aortic and mitral valve disease valve s/p C-E bioprosthetic AVR and MV annuloplasty ring placement in 2004 at [facility]. 4. Chronic compensated diastolic heart failure. 5. History of 3rd degree AVB status post permanent pacemaker insertion 2004 6. Normal coronary arteries by cardiac catheterization x 2. 7. Dyslipidemia with statin and Zetia intolerance Patient presents today to ER for further evaluation of symptoms of dyspnea. Patient notes having had symptoms of worsening shortness of breath and intermittent nocturnal paroxysmal dyspnea since . She initially attributed this to possible worsening asthma with pet exposures. She was treated at urgent care with prednisone and inhaler without improvement in symptoms and possible worsening of complaints. She notes usually waking up dyspneic and having to sit on the edge of her bed at night before symptoms resolved. Not dyspneic with minimal activity. Notes no overt fevers or chills. Notes no chest pain. Has not been aware of any tachypalpitations dizziness lightness syncope or near syncope. No bleeding difficulties. Patient has not taken oral diuretic x2 Denies acute weight gain with gradual losing weight over the past several months but as per personal trial. No headaches or visual changes no dental issues or lesion She received a dose of Bumex in the emergency room today with improvement in symptoms. Allergies Allergy/AdvReac Type Severity Reaction Status Date / Time furosemide Allergy Unknown RASH Verified 09/10/19 08:21 lactose Allergy Unknown Unknown Unverified 09/10/19 08:21 [id number] Reductase Allergy Unknown . Verified 09/10/19 08:21 Inhibitor ezetimibe AdvReac Unknown nausea,diar Verified 09/10/19 08:21 rabia Home Medications Home Medications Medication Instructions Recorded Confirmed Type digoxin 125 mcg (0.125 mg) tablet 125 mcg PO QAM #90 tab 05/11/19 09/10/19 History glucosamine-chondroitin 500 mg-400 1 cap PO BID cap 05/11/19 09/10/19 History mg capsule metoprolol succinate 100 mg 100 mg PO BID tab 05/11/19 09/10/19 History tablet,extended release 24 hr multivitamin with iron 1 tab PO QAM 05/11/19 09/10/19 History bumetanide 0.5 mg PO DAILY 09/10/19 09/10/19 History levalbuterol tartrate [Xopenex HFA] 1 puff INHALATION Q4H PRN 09/10/19 09/10/19 History warfarin 2.5 mg PO UD 09/10/19 09/10/19 History Patient History Medical History Diastolic heart failure Dyslipidemia HTN (hypertension) (Chronic) Pacemaker malfunction (Resolved 05/26/14) Paroxysmal a-fib (Chronic) Surgical History (Updated 09/10/19 @ 16:26 by Hung Love) History of aortic valve replacement History of hysterectomy History of radiofrequency ablation procedure for cardiac arrhythmia Hx of tonsillectomy S/P AVR (aortic valve replacement) Family History Other Coronary heart disease Diabetes Social History Preferred Language: Turkish Communication Ability: Effective 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 Beliefs That Will Affect Care: None marital status: Single Current Living Situation: Alone current occupational status: retired Other Information That Helps Us Care for You: No Feels Safe at Home: Yes Safety Concerns: Feels Safe At This Time Smoking Status: Never smoker Do You Dip or Chew Tobacco: No ; Second Hand Exposure: No ; Tobacco Cessation Education Requested by Patient: No Hx Alcohol Use: No Hx Substance Use: No Review of Systems Review of Systems: All systems reviewed & are unremarkable except as noted in HPI & below Physical Exam Constitutional: WD/WN, vitals as above Eyes: PERRL, conjunctivae normal, anicteric sclerae ENMT: external ear and nose normal, oropharynx normal Neck: trachea midline, no thyromegaly Respiratory: normal respiratory effort; no respiratory distress Cardiovascular: Rate/Rhythm: + irregularly irregular Heart Sounds: + murmur (Grade 2/6 to 3/6 systolic murmur as well as grade 2/6 to 3/6 diastolic murmur heard best at the left lower sternal border) Palpation: normal PMI Vessels: no JVD and no carotid bruit Extremities: + edema (Trace) Gastrointestinal (Abdomen): normal bowel sounds, soft, nontender, no hepatosplenomegaly Musculoskeletal: no cyanosis or clubbing, extremities motor strength 5/5 Neurologic: PERRL, EOMI, accommodation nl, no face palsy, no dysarthria Results & Data Vital Signs (Past 12 Hours) Vital Signs Temp Pulse Pulse Pulse Resp BP BP 09/10/19 13:59 36.3 C L 78 18 149/78 H 09/10/19 13:45 36.7 C 83 15 107/62 09/10/19 13:15 83 15 107/62 09/10/19 13:01 74 17 09/10/19 12:45 72 22 09/10/19 12:31 77 18 09/10/19 12:30 78 15 114/80 09/10/19 12:19 72 16 125/65 09/10/19 12:18 82 18 09/10/19 12:00 75 18 09/10/19 11:54 36.3 C L 78 18 149/78 H 09/10/19 11:45 70 19 09/10/19 11:41 72 18 09/10/19 11:09 70 19 115/65 09/10/19 10:15 70 19 09/10/19 10:01 77 18 105/65 09/10/19 10:00 72 14 09/10/19 09:50 76 16 09/10/19 09:32 84 19 09/10/19 09:31 70 19 127/54 L 09/10/19 09:30 78 17 09/10/19 09:15 84 20 09/10/19 09:01 78 15 133/61 09/10/19 09:00 74 16 09/10/19 08:45 77 18 09/10/19 08:32 73 13 09/10/19 08:31 84 23 114/70 09/10/19 08:30 73 21 09/10/19 08:15 74 18 09/10/19 08:01 70 13 09/10/19 08:00 36.7 C 74 72 12 128/56 L 128/56 L 09/10/19 07:55 74 13 09/10/19 07:52 73 13 106/44 L 09/10/19 07:30 09/10/19 07:06 36.7 C 81 22 134/74 Pulse Ox 09/10/19 13:59 97 09/10/19 13:45 97 09/10/19 13:15 97 09/10/19 13:01 97 09/10/19 12:45 97 09/10/19 12:31 98 09/10/19 12:30 97 09/10/19 12:19 98 09/10/19 12:18 99 09/10/19 12:00 09/10/19 11:54 97 09/10/19 11:45 09/10/19 11:41 09/10/19 11:09 98 09/10/19 10:15 98 09/10/19 10:01 98 09/10/19 10:00 98 09/10/19 09:50 97 09/10/19 09:32 98 09/10/19 09:31 98 09/10/19 09:30 96 09/10/19 09:15 98 09/10/19 09:01 98 09/10/19 09:00 99 09/10/19 08:45 98 09/10/19 08:32 98 09/10/19 08:31 96 09/10/19 08:30 96 09/10/19 08:15 96 09/10/19 08:01 97 09/10/19 08:00 97 09/10/19 07:55 97 09/10/19 07:52 96 09/10/19 07:30 97 09/10/19 07:06 95 Diagnostic Findings Echocardiogram 05/14/2019: The primary indication after review was deemed appropriate and the examination was performed. Normal LV chamber size with mild concentric LVH. Normal LV systolic function without regional wall motion abnormality. Calculated LV ejection Fraction = 55% (bi-plane method of discs). The right ventricular cavity size is normal (basal dimension < 4.2 cm RV apical 4 chamber view). The right ventricular systolic function is mildly reduced . There is a pacemaker wire in the right ventricle. There is an aortic valve bioprosthetic present. The aortic valve prosthesis systolic gradients are normal for this type prosthesis. (2.4 m/s) Mild paravalvular aortic valve prosthesis regurgitation is present. There is evidence of prior mitral valve repair. There is evidence of prior mitral valve annuloplasty. Mitral stenosis is absent. Significant mitral regurgitation is absent. Moderate tricuspid regurgitation. The estimated pulmonary artery systolic pressure is 30mm Hg. Severe left atrtial enlargement. Mild right atrial enlargement. Echocardiogram today 09/10/2019 (preliminary) Left ventricle is mildly enlarged there is mild left hypertrophy overall systolic function is normal There is at least moderate and probably severe prosthetic aortic valve insufficiency Pulmonary pressures are elevated
[2019-09-10] MEDS: DIGOXIN 0.125 MG TAB PO SCH (16:00)
[2019-09-10] MEDS ORDERED: WARFARIN SOD 1.25 MG TAB PO SCH (16:00)
[2019-09-10] MEDS: METOPROLOL SUCC 50MG EXT REL TAB PO SCH (21:13)
[2019-09-10] MEDS ORDERED: POTASSIUM CHLORIDE 10 MEQ TABCR PO ONE (22:00)
[2019-09-10] MEDS ORDERED: LORazepam 0.5 MG TAB PO PRN (22:08)
[2019-09-11 06:27] LABS: Hematocrit (blood only) 36.9 % (37-47); Hemoglobin 11.8 g/dL (12.0-16.0); Mean Corpuscular Hemoglobin 28.2 pg (25-34); Mean Corpuscular Volume 88.1 fL (80-100); Mean Platelet Volume 9.4 fL (7.4-10.4); Platelet Count 325 K/uL (130-400); RDW Standard Deviation 50.7 fL (36.4-46.3); Red Blood Count 4.19 M/uL (4.2-5.4); White Blood Count 10.21 K/uL (4.8-10.8)
[2019-09-11 06:34] LABS: INR 2.2 (0.9-1.1); Prothrombin Time 21.6 Seconds (9.0-12.0)
[2019-09-11 07:02] LABS: BUN Creatinine Ratio 19.5 (10-20); Creatinine Clr Calc Pharmacy 45.6 ml/min; Est GFR (African American) 57.5; Est GFR (Non-African American) 49.6; Potassium 3.9 mmol/L (3.5-5.1)
[2019-09-11 07:09] LABS: Troponin I 0.07 ng/ml (0-0.045)
[2019-09-11] MEDS: METOPROLOL SUCC 50MG EXT REL TAB PO SCH (08:12)
[2019-09-11] MEDS ORDERED: BUMETANIDE 1 MG TAB PO SCH (09:00)
[2019-09-11] MEDS ORDERED: MULTIVITAMIN TAB PO SCH (09:00)
--- NOTE | 2019-09-11 10:34 | Cardiology Progress Note ---
Date of Service September 11, 2019 Assessment & Plan (1) Acute on chronic diastolic (congestive) heart failure: Improved with only slight increase in diuretic dosings Etiology appears to be secondary to acute or subacute worsening of aortic insufficiency and prosthetic aortic valve degeneration Initial blood culture still pending but negative to date Discussed above findings in detail with the patient. Recommended transfer to [facility] to begin evaluation for options of valve replacement and assessment necessary prior to intervention Noted to patient may not require procedure this admission YUDITH will not be performed today Clear liquid breakfast to be given (2) Aortic valve insufficiency: (3) S/P AVR (aortic valve replacement): Liz Gates bioprosthesis placed 2004 with newly observed worsening aortic insufficiency (4) A-fib: Past paroxysmal with aggressive past interventions to maintain sinus rhythm. Reinterrogate device (5) Cardiac pacemaker in situ: Patient with [employer] device in place. Device interrogation performed with device functioning appropriately random pacemaker spikes on EKG reflect atrial pacing at times. Good thresholds on both leads patient predominantly in atrial fibrillation Subjective Weight down approximately 1.5 kg Patient seen and examined, chart, medications, telemetry reviewed. Much more comfortable this morning after diuresis. Weight down approximately 1.5 kg Less dyspneic No fevers or chills. No chest pains no dizziness or lightheadedness. Remains predominantly in atrial fibrillation with intermittent ventricular pacing on telemetry Physical Exam Constitutional: WD/WN, vitals as above Eyes: PERRL, conjunctivae normal, anicteric sclerae ENMT: external ear and nose normal, oropharynx normal Neck: trachea midline, no thyromegaly Respiratory: normal respiratory effort; no respiratory distress Cardiovascular: Rate/Rhythm: + irregularly irregular Heart Sounds: + murmur (Grade 2/6 to 3/6 systolic murmur as well as grade 2/6 to 3/6 diastolic murmur heard best at the left lower sternal border) Palpation: normal PMI Vessels: no JVD and no carotid bruit Extremities: + edema (Trace) Gastrointestinal (Abdomen): normal bowel sounds, soft, nontender, no hepatosplenomegaly Musculoskeletal: no cyanosis or clubbing, extremities motor strength 5/5 Neurologic: PERRL, EOMI, accommodation nl, no face palsy, no dysarthria Results & Data Vital Signs (Past 12 Hours) Vital Signs Temp Pulse Pulse Resp BP BP Pulse Ox 09/11/19 07:41 36.9 C 72 20 113/73 94 09/11/19 01:59 36.8 C 77 18 114/50 L 95 09/11/19 00:18 76 09/10/19 23:14 37.7 C H 85 16 102/55 L 96 Laboratory Results Laboratory Results - last 24 hr 09/10/19 09/10/19 09/11/19 14:19 20:07 05:43 WBC RBC Hgb Hct MCV MCH MCHC RDW Std Deviation RDW Coeff of Bob Plt Count MPV PT INR Sodium 143 Potassium 3.9 Chloride 108 H Carbon Dioxide 31 Anion Gap 5.0 BUN 21 H Creatinine 1.09 Est Cr Clr Drug Dosing 45.6 Est GFR ( Amer) 57.5 Est GFR (Non-Af Amer) 49.6 BUN/Creatinine Ratio 19.5 Glucose 90 Calcium 9.0 Troponin I 0.046 H* 0.066 H* 0.070 H* Triglycerides 113 Cholesterol 218 H LDL Cholesterol, Calc 160 VLDL Cholesterol, Calc 23 HDL Cholesterol 35 Cholesterol/HDL Ratio 6 09/11/19 09/11/19 05:43 05:43 WBC 10.21 RBC 4.19 L Hgb 11.8 L Hct 36.9 L MCV 88.1 MCH 28.2 MCHC 32.0 RDW Std Deviation 50.7 H RDW Coeff of Bob 16.0 H Plt Count 325 MPV 9.4 PT 21.6 H INR 2.2 H Sodium Potassium Chloride Carbon Dioxide Anion Gap BUN Creatinine Est Cr Clr Drug Dosing Est GFR ( Amer) Est GFR (Non-Af Amer) BUN/Creatinine Ratio Glucose Calcium Troponin I Triglycerides Cholesterol LDL Cholesterol, Calc VLDL Cholesterol, Calc HDL Cholesterol Cholesterol/HDL Ratio
--- NOTE | 2019-09-11 11:28 | Hospitalist Progress Note ---
Date of Service September 11, 2019 Assessment & Plan (1) SOB (shortness of breath): (2) Acute on chronic diastolic (congestive) heart failure: (3) Elevated troponin: Patient is a 74-year-old female with H/O atrial arrhythmias, AV block s/p pacemaker, paroxysmal atrial fibrillation on Coumadin, h/o cardioversion, Bioprosthetic aortic valve replacement, chronic diastolic heart failure, dyslipidemia presented to ER with c/o exertional SOB with walking x 3 weeks. Acute on chronic diastolic heart failure Likely due to worsening aortic insufficiency and prosthetic aortic valve degeneration Mild troponin elevation likely secondary to demand ischemia CXR: Cardiomegaly with slight improvement in the mild pulmonary vascular congestion. Trace bilateral pleural effusions. Volume status improved with IV Bumex Monitor I's and O's, daily weight, volume status Continue p.o. Bumex, digoxin, metoprolol Appreciate cardiology input Pacemaker interrogation performed--device functioning appropriately Given worsening aortic insufficiency, prosthetic aortic valve degeneration--patient would benefit from being transferred to [facility] for possible arctic valve replacement/intervention Accepting physician Dr. Reid Hunt, Cardiology (4) Paroxysmal a-fib: (5) Anticoagulated: Current rate controlled INR: 2.2 Digoxin level WNL at 0.9 Continue metoprolol, digoxin Continue Coumadin Monitor INR (6) History of artificial heart valve: H/O bioprosthetic valve replacement in 2004 H/O echo in 04/2019: EF: 55%, aortic bioprosthesis, mild paravalvular aortic valve prosthesis regurgitation, moderate tricuspid regurgitation Management as above (7) Cardiac pacemaker in situ: Pacer interrogated (8) Dyslipidemia: H/O statin intolerance DVT Prophylaxis On Coumadin CODE STATUS Full code Disposition Transfer to [facility] Subjective Patient is seen and examined at bedside States her breathing is much improved after IV diuretics Denies any chest pain, dizziness, nausea, abdominal pain Discussed with cardiology today Plan to be transferred to [facility] for possible attic valve replacement Review of Systems Review of Systems: All systems reviewed & are unremarkable except as noted in HPI & below Physical Exam Physical Exam: Physical Exam: Vitals signs as noted above General Appearance:Moderately built and nourished, no apparent distress Head: normocephalic, Atraumatic Eyes: normal inspection, EOMI Neck: supple, Trachea midline Respiratory/Chest: Normal breath sounds, CTA Cardiovascular: Irregularly irregular,+ systolic, diastolic murmur Abdomen/GI:Soft, Non tender, Bowel sounds present Extremities/Musculoskelatal:normal inspection, 1+ bilateral lower extremity edema Neurologic/Psych:AAOX3, grossly no focal neurological deficits Skin: normal color, warm Results & Data Vital Signs (Past 12 Hours) Vital Signs Temp Pulse Pulse Resp BP Pulse Ox 09/11/19 07:41 36.9 C 72 20 113/73 94 09/11/19 01:59 36.8 C 77 18 114/50 L 95 09/11/19 00:18 76 Laboratory Results Short CBC 09/11/19 Range/Units 05:43 WBC 10.21 (4.8-10.8) K/uL Hgb 11.8 L (12.0-16.0) g/dL Hct 36.9 L (37-47) % Plt Count 325 (130-400) K/uL BMP 09/11/19 05:43 Sodium 143 Potassium 3.9 Chloride 108 H Carbon Dioxide 31 BUN 21 H Creatinine 1.09 Glucose 90 Calcium 9.0 Cardiac Enzymes 09/10/19 09/10/19 09/11/19 Range/Units 14:19 20:07 05:43 Troponin I 0.046 H* 0.066 H* 0.070 H* (0-0.045) ng/ml
--- NOTE | 2019-09-11 11:37 | Discharge Summary ---
Date of Service September 11, 2019 Admission HPI Per Admitting Provider Pt is 74 y/o F with PMH atrial arrhythmias, AV block s/p pacemaker, paroxysmal atrial fibrillation on Coumadin, h/o cardioversion,Bioprosthetic aortic valve replacement, chronic diastolic heart failure, dyslipidemia presented to ER with c/o SOB x 3 weeks. Patient states symptoms started after Thanksgiving. Reports shortness of breath with exertion and is short of breath which is walking throughout house. Patient states waking up in the middle night feeling short of breath. She reports when she does wake up she looks at her fitbit and has not noticed any tachycardia. Denies palpitations. Reports feeling generalized "wiped out". Initially she thought symptoms were asthma/bronchitis secondary to being around cats. Patient was given Xopenex and did prednisone taper without any relief. Denies chest pain, dizziness, palpitations. Pt reports lost 40 pounds with weight watchers. Patient reports weighs herself daily and has not noticed any weight gain. Denies any noted increased lower extremity edema. Denies cough, fever, chills, diaphoresis, N/V/D/C, RIOS, dizziness, syncope, vision changes, neck pain, sore throat, choking, otalgia, rhinorrhea, abdominal pain, paresthesias, extremity edema, rashes, urinary symptoms. Follows with Dr Hernandez and Dr Benz. Last pacer check revealed pt has paroxysmal atrial fibrillation, about a third of the time. 05/14/2019 echo: EF: 55%, aortic bioprosthesis, mild paravalvular aortic valve prosthesis regurgitation, moderate tricuspid regurgitation Reported hx cardiac cath years ago with no CAD. Admission Exam Per Admitting Provider General: no distress, WDWN Head: normocephalic, atraumatic Eyes: PERRL, EOM's intact, conjunctiva non-injected, anicteric ENT: normal inspection external ears, nose, mucous membranes moist Neck: supple, trachea midline Lungs: clear, no respiratory distress, no wheezing/rhonchi/rales CV: irregularly irregular, rate 80, +valve sounds, no JVD, 1+ pretibial edema Abd: normal BS, soft, non-tender Ext: no cyanosis, no calf tenderness Neuro: A&O x 3, no focal deficits noted, normal affect Skin: warm, dry Principal Diagnosis Acute on chronic diastolic heart failure Worsening aortic insufficiency and prosthetic aortic valve degeneration Discharge Data Allergies Allergy/AdvReac Type Severity Reaction Status Date / Time furosemide Allergy Unknown RASH Verified 09/10/19 08:21 lactose Allergy Unknown Unknown Unverified 09/10/19 08:21 Qufmbkt-Hhm-Jhm Reductase Allergy Unknown . Verified 09/10/19 08:21 Inhibitor ezetimibe AdvReac Unknown nausea,diar Verified 09/10/19 08:21 rabia Consultations 09/10/19 11:01 ED Decision to Admit Stat 09/10/19 14:09 Consult Cardiology Routine Consult Case Management - Discharge Planning Routine 09/11/19 10:15 Burn CD for patient Routine Procedures Performed CXR: 1. Cardiomegaly with slight improvement in the mild pulmonary vascular congestion. 2. Trace bilateral pleural effusions. ECHO: Left ventricle is mildly dilated There is mild concentric left ventricular hypertrophy No regional wall motion abnormalities noted There is of bioprosthetic aortic valve Prosthetic aortic valve velocities are mildly elevated. There is severe prosthetic aortic valve insufficiency There is mild mitral regurgitation There is severe tricuspid regurgitation The right ventricular systolic pressure is elevated at 40-50 mmHg Ejection fraction =55 to 60% Hospital Course (1) SOB (shortness of breath): (2) Acute on chronic diastolic (congestive) heart failure: (3) Elevated troponin: Patient is a 74-year-old female with H/O atrial arrhythmias, AV block s/p pacemaker, paroxysmal atrial fibrillation on Coumadin, h/o cardioversion, Bioprosthetic aortic valve replacement, chronic diastolic heart failure, dyslipidemia presented to ER with c/o exertional SOB with walking x 3 weeks. Acute on chronic diastolic heart failure Likely due to worsening aortic insufficiency and prosthetic aortic valve degeneration Mild troponin elevation likely secondary to demand ischemia CXR: Cardiomegaly with slight improvement in the mild pulmonary vascular congestion. Trace bilateral pleural effusions. Volume status improved with IV Bumex Monitor I's and O's, daily weight, volume status Continue p.o. Bumex, digoxin, metoprolol Appreciate cardiology input Pacemaker interrogation performed--device functioning appropriately Given worsening aortic insufficiency, prosthetic aortic valve degeneration--patient would benefit from being transferred to [facility] for possible arctic valve replacement/intervention Accepting physician Dr. Reid Hunt, Cardiology (4) Paroxysmal a-fib: (5) Anticoagulated: Current rate controlled INR: 2.2 Digoxin level WNL at 0.9 Continue metoprolol, digoxin Continue Coumadin Monitor INR (6) History of artificial heart valve: H/O bioprosthetic valve replacement in 2004 H/O echo in 04/2019: EF: 55%, aortic bioprosthesis, mild paravalvular aortic valve prosthesis regurgitation, moderate tricuspid regurgitation Management as above (7) Cardiac pacemaker in situ: Pacer interrogated (8) Dyslipidemia: H/O statin intolerance DVT Prophylaxis On Coumadin CODE STATUS Full code Disposition Transfer to [facility] Total Time Total Time Spent Total Time Spent (In Minutes): 43 minutes Total Time Includes: Examination of the Patient, Discharge Planning, Medication Reconciliation, Communication With Other Providers and Other Discharge Plan Discharge Items Patient Disposition: Transfer Acute Care Hospital Reason For Visit: SOB Discharge Diagnosis: Acute on chronic diastolic heart failure Worsening aortic insufficiency and prosthetic aortic valve degeneration Activity: Per Instructions section Exercise/Sports: Wait until after follow-up appointment Non-emergency contact: Primary Care Provider and [employer] Call non-emergency contact if: you have any medication questions, your symptoms worsen, your pain is not controlled, your pain is worsening, your pain is unusual for you and your pain is concerning for you Follow-up/Referrals: Jason Mixon MD [Primary Care Provider] - Diet: Heart Healthy Addtl Attending Provider Instructions: Follow-up with Dr. Reid Hunt, [facility] cardiology for further evaluation and management Follow-up with your primary care physician once discharged from the hospital in 1 week Seek immediate medical attention if your symptoms reoccur or worsen Pending Studies at Discharge: No Stand-Alone Forms: My [facility] Skilled Items Patient informed of condition?: Yes DNR: No Discharge Level of Care: Other Communicable Disease: No Discharge Prognosis: Stable Lines: Peripheral IV Urinary Catheter: No Medications and DC Order Prescriptions: Continued digoxin [Digox] 125 mcg tablet 125 mcg PO QAM Qty: 90 RF: 0 glucosamine-chondroitin 500-400 mg capsule 1 cap PO BID RF: 0 metoprolol succinate [Toprol XL] 100 mg tablet extended release 24 hr 100 mg PO BID RF: 0 multivitamin with iron [Daily Multiple Vitamins/Iron] tablet 1 tab PO QAM RF: 0 levalbuterol tartrate [Xopenex HFA] 45 mcg/actuation HFA aerosol inhaler 1 puff INHALATION Q4H PRN (Reason: Wheezing) RF: 0 warfarin 2.5 mg Tablet 2.5 mg PO UD RF: 0 bumetanide 1 mg Tablet 0.5 mg PO DAILY RF: 0 Discharge Orders: Discharge Order (Routine); Ordered 09/11/19 Ordered By: Alvaro Lau Admission Data Admit Date/Time: 09/10/19 12:05 Attending Provider: Alvaro Lau Admit Provider: Derik Burdick Primary Care Provider: Jason Mixon Other Providers: Derik Burdick ; Moises Thrasher
[2019-09-11] MEDS: DIGOXIN 0.125 MG TAB PO SCH (15:45)
[2019-09-11] MEDS ORDERED: WARFARIN SOD 2.5 MG TAB PO SCH (16:00)
== END 2019-09-11 17:50 | disposition short-term general hospital (02) | DRG 292 ==
LOC: ED 07:02 → SUATTDRO 12:05 → 2N 12:05

== ENCOUNTER 2021-09-21 13:53 | Inpatient (IN) ==
--- NOTE | 2021-09-21 14:18 | Emergency Department Note ---
History of Present Illness General Chief complaint: Altered Mental Status Stated complaint: AMS Time Seen by Provider: 09/21/21 13:54 Source: family and EMS Mode of arrival: EMS Limitations: altered mental status History of Present Illness Provider complaint: Altered mental status Onset (ago): day(s) Location: head Pain Consistency: + constant Quality: + other (Confused and repetitive) Relieved By: + none Associated symptoms: no fever/chills History and physical is severely limited as the patient has altered mental status and is not following commands or answering questions. I did obtain history from the paramedics as well as Dr. Garcia Duncan who was with the [facility] amedics. Apparently the patient lives with her son and cfdqqmsx-kq-xcy. When the son and tnksvpvc-pz-vvc came home today they found her on the floor. It appeared that she had crawled across the floor and had some dog feces on her. They do not know if she fell down or passed out or how long she had been on the ground. She has had confusion recently and saw her doctor yesterday. They do not know what kind of work-up was performed. She has had no recent reported fevers. When the paramedics arrived the patient was very combative and confused. She kept telling them that she was scared and was very repetitive. She was not cooperative and so she was given Ativan 0.5 mg IV prior to arrival here. Dr. Duncan states that the son, who is power of speech language specialist, stated that she is DNR. The jumbnrfs-st-yyb later came into the emergency department I obtained history from her. She states that she initially noticed the patient's confusion 3 days ago. Her laundry housekeeper had called to state that the patient was confused. She was doing things like reading the phone book and was disoriented. She does have a history of having difficulty speaking when she gets stressed but she is normally not confused. She took her to her doctor last night and she seemed better at the time. She had halved her dose of metoprolol because she did not like the side effects. The doctor she saw yesterday felt that may be increasing the metoprolol back to its normal dose would help improve blood flow to her brain and possibly improve her confusion. She did take the regular dose yesterday as far as her gupwatxz-zx-utv knows but is not sure what she did afterwards. She seemed better last night and so she and her went home. Apparently the patient does live by herself. She last saw the patient at 9 PM yesterday and her saw her today at noon and found her on the ground. They state that the dog often defecates in the house and so it was not unusual to see dog feces there. She estimates that given the way the house was organized the patient likely got up this morning and is likely did not fall last night. The olqxsmmy-wz-wwg states that the patient seemed "manic" over the past several days but she has no known psychiatric history. She has had no reported depression or suicidality. She has not been sleeping for the past 2 days. She had not been complaining of any fever, cough or cold symptoms, abdominal pain, chest discomfort or diarrhea. She has had no urinary symptoms according to the uumwoccw-de-xgo. She did complain of a headache at [place] but not since then. She thought it was just from the change in the weather. She stated that when the paramedics arrived she was hitting them and very uncooperative and so they had to sedate her. She also confirmed that the patient have a living well and is DNR/DNI. Home Medications Medication Instructions Recorded Confirmed Type glucosamine-chondroitin 500 mg-400 1 cap PO BID cap 05/11/19 09/21/21 History mg capsule bumetanide 1 mg tablet 0.5 - 1 mg PO DAILY 09/10/19 09/21/21 History warfarin 2.5 mg tablet 2.5 mg PO UD 09/10/19 09/21/21 History metoprolol succinate 100 mg 100 mg PO BID #180 tab 05/24/21 09/21/21 Rx tablet,extended release 24 hr Prevagen 10 mg PO DAILY 09/21/21 09/21/21 History acetaminophen 325 mg tablet 325 mg PO QID PRN 09/21/21 09/21/21 History (Tylenol) cyclobenzaprine 5 mg tablet 5 mg PO TID PRN 09/21/21 09/21/21 History loratadine 10 mg tablet 10 mg PO DAILY 09/21/21 09/21/21 History multivitamin 1 tab PO DAILY 09/21/21 09/21/21 History Allergies Allergy/AdvReac Type Severity Reaction Status Date / Time furosemide Allergy Unknown RASH Verified 05/24/21 13:32 lactose Allergy Unknown Unknown Unverified 05/24/21 13:32 Svvgirl-PAU-JsV Reductase Allergy Unknown . 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) Paroxysmal a-fib Surgical History History of aortic valve replacement History of hysterectomy History of radiofrequency ablation procedure for cardiac arrhythmia Hx of tonsillectomy S/P AVR (aortic valve replacement) Family History Other Coronary heart disease Diabetes Social History Smoking Status: Unknown if ever smoked Second Hand Exposure: No; Hx Alcohol Use: No Hx Substance Use: No Preferred Language: Congolese Communication Ability: Effective Rug Cutter Required: No Beliefs That Will Affect Care: None marital status: Single Current Living Situation: Alone current occupational status: retired Feels Safe at Home: Yes Assistive Devices: None Review of Systems See HPI for pertinent positives & negatives. Unobtainable due to cognitive status Physical Exam Vital Signs Vital Signs - 24 hr 09/21/21 14:08 09/21/21 14:30 09/21/21 14:45 Temperature 36.2 C L Temperature Source Axillary Pulse Rate 132 H Pulse Rate [Apical] 126 H 115 H Respiratory Rate 18 18 Respiratory Effort / Characteristics Non-Labored Non-Labored Respiratory Depth Normal Normal Blood Pressure 152/126 H Blood Pressure [Left Arm] 152/126 H 166/132 H Blood Pressure Mean 134 Blood Pressure Mean [Left Arm] 134 143 Pulse Oximetry 96 Oxygen Delivery Method Room Air Room Air Sepsis Recent Fever Within 48 Hours No Sepsis New/Unexplained Change in Mental Status No Sepsis Action Taken by Nursing No Action Required 09/21/21 15:00 Temperature Temperature Source Pulse Rate Pulse Rate [Apical] 96 H Respiratory Rate 20 Respiratory Effort / Characteristics Respiratory Depth Normal Blood Pressure Blood Pressure [Left Arm] 166/120 H Blood Pressure Mean Blood Pressure Mean [Left Arm] 135 Pulse Oximetry 96 Oxygen Delivery Method Room Air Sepsis Recent Fever Within 48 Hours Sepsis New/Unexplained Change in Mental Status Sepsis Action Taken by Nursing The physical exam is limited due to the patient's condition. She does not follow commands or respond to voice. Constitutional: Vital signs reviewed. Eyes: Pupils are equal round reactive to light. Conjunctiva are noninjected. HENT: Normocephalic atraumatic. No midline tenderness to the cervical spine. Respiratory: Clear to auscultation bilaterally. Breath sounds are equal bilaterally. Cardiovascular: Tachycardic. Irregularly irregular rhythm. GI: Soft, nondistended and nontender. Bowel sounds are present. Musculoskeletal: No peripheral edema. No tenderness to the hips. Full range of motion of the upper and lower extremities at all joints without elicitation of pain. Integumentary: No cyanosis. Neurological: The patient is awake and alert and staring. She does move all extremities. Psychiatric: Unable to assess. Course Administered Medications Diltiazem HCl 125 mg/ Dextrose 125 mls @ 10 mls/hr IV .[id number] [facility]; Protocol Stop: 10/21/21 14:29 Last Titration: 09/21/21 16:03 Dose: 10 mg/hr, 10 mls/hr Documented by: [id number] Cosigned by: [id number] Admin: 09/21/21 14:56 Dose: 5 mg/hr, 5 mls/hr Documented by: [id number] Cosigned by: [id number] Sodium Chloride (Nss) 500 mls @ 125 mls/hr IV .Q4H [facility] Stop: 10/21/21 15:59 Last Admin: 09/21/21 16:04 Dose: 125 mls/hr Documented by: [id number] Discontinued Medications Diltiazem HCl (Diltiazem Hcl 5 Mg/Ml 5 Ml Vial) 5 mg IV NOW STA Stop: 09/21/21 14:31 Last Admin: 09/21/21 14:39 Dose: 5 mg Documented by: [id number] Cosigned by: [id number] Miscellaneous (Stat Iv Infusion Titration Per Protocol) 1 ea N/A NOW STA Stop: 09/21/21 14:31 Last Admin: 09/21/21 15:29 Dose: 1 ea Documented by: [id number] Critical Care Time Critical Care Time: Yes Total Critical Care Time: 45 I have personally spent approximately 45 minutes of critical care time in the direct management of this patient. This includes bedside care, interpretation of diagnostic studies, and testing, discussion with consultants, patient, and family members, and other required patient management activities. These minutes are in excess of all separately billable procedures. Medical Decision Making Differential Diagnosis Intracranial hemorrhage, CVA, TIA, metabolic derangement, syncope, dysrhythmia, infection Medical Records Attestation: I reviewed the patient's medical records. I did perform a limited focused review of portions of the patient's old chart on the electronic medical record. The patient was seen here in March for headache and hypertension. She had a negative CT of the head at that time. She was seen yesterday at her doctor's office in the [facility] system. She was therefore altered mental status and lab work was ordered. An MRI was possibly scheduled for next week. She had expressed to the doctor that she had difficulty getting her thoughts out. She displayed repetitive statements and thoughts. Her corhfjht-bl-hvt had noted that some of this began prior to . Her blood work did not reveal significant abnormalities of her CBC. Her calcium was elevated at 1.34. Her PTH was elevated slightly at 123. Otherwise electrolytes and LFTs were unremarkable. Home Medications Current Medication List: was personally reviewed by me Laboratory Data Attestation: I reviewed the patient's lab results. Result diagrams: 09/21/21 14:53 09/21/21 14:53 Lab Results 09/21/21 09/21/21 09/21/21 Range/Units 14:18 14:18 14:52 WBC (4.8-10.8) K/uL RBC (4.2-5.4) M/uL Hgb (12.0-16.0) g/dL Hct (37-47) % MCV (80-100) fL MCH (25-34) pg MCHC (32-36) g/dL RDW Std Deviation (36.4-46.3) fL RDW Coeff of Bob (11.5-14.5) % Plt Count (130-400) K/uL MPV (7.4-10.4) fL Immature Gran % (Auto) % Neut % (Auto) % Lymph % (Auto) % [place] % (Auto) % Eos % (Auto) % Baso % (Auto) % Neut # (Auto) (1.4-6.5) K/uL Lymph # (Auto) (1.2-3.4) K/uL [place] # (Auto) (0.11-0.59) K/uL Eos # (Auto) (0-0.5) K/uL Baso # (Auto) (0-0.2) K/uL Immature Gran # (Auto) (0.00-0.02) K/uL PT (9.0-12.0) Seconds INR (0.9-1.1) Sodium (136-145) mmol/L Potassium (3.5-5.1) mmol/L Chloride (98-107) mmol/L Carbon Dioxide (21-32) mmol/L Anion Gap (3-11) BUN (7-18) mg/dl Creatinine (0.6-1.2) mg/dl Est Cr Clr Drug Dosing ml/min Est GFR ( Amer) ml/min Est GFR (Non-Af Amer) ml/min BUN/Creatinine Ratio (10-20) Glucose (70-99) mg/dl Calcium (8.5-10.1) mg/dl Magnesium (1.8-2.4) mg/dl Total Bilirubin (0.2-1) mg/dl AST (15-37) U/L ALT (12-78) Alkaline Phosphatase (45-117) U/L Ammonia (11-32) umol/L Total Creatine Kinase (26-192) U/L Troponin I (0-0.045) ng/ml Total Protein (6.4-8.2) gm/dl Albumin (3.4-5.0) gm/dl Globulin (2.5-4.0) gm/dl Albumin/Globulin Ratio (0.9-2) Lipase (73-393) U/L Urine Color Yellow Urine Appearance Cloudy A (Clear) Urine pH 7.0 (4.5-7.5) Ur Specific Turrell 1.019 (1.000-1.030) Urine Protein 3+ H (Negative) Urine Glucose (UA) Negative (Negative) Urine Ketones 1+ H (Negative) Urine Blood 1+ H (Negative) Urine Nitrite Negative (Negative) Urine Bilirubin Negative (Negative) Urine Urobilinogen Negative (Negative) Ur Leukocyte Esterase Negative (Negative) Urine WBC (Auto) 1-5 (0-5) /hpf Urine RBC (Auto) 5-10 H (0-4) /hpf U Hyaline Cast (Auto) 10-30 H (0-5) /lpf U Epithel Cells (Auto) >30 H (0-5) /lpf Urine Bacteria (Auto) Negative (Negative) Salicylates (2.8-20) mg/dl Urine Opiates Screen Neg (Neg) Ur Methadone, Qual Neg (Neg) Acetaminophen (10-30) ug/ml Urine Barbiturates Neg (Neg) Ur Phencyclidine (PCP) Neg (Neg) U Amphetamin/Meth Scrn Neg (Neg) MDMA (Ecstasy) Screen Neg (Neg) U Benzodiazepines Scrn Neg (Neg) Ur Cocaine Metabolite Neg (Neg) U Marijuana (THC) Screen Neg (Neg) Ethyl Alcohol mg/dL (0-3) mg/dl SARS-CoV-2, RNA, NAAT NEGATIVE (NEGATIVE) 09/21/21 09/21/21 09/21/21 Range/Units 14:53 14:53 14:53 WBC 14.47 H (4.8-10.8) K/uL RBC 5.46 H (4.2-5.4) M/uL Hgb 15.4 (12.0-16.0) g/dL Hct 46.5 (37-47) % MCV 85.2 (80-100) fL MCH 28.2 (25-34) pg MCHC 33.1 (32-36) g/dL RDW Std Deviation 44.7 (36.4-46.3) fL RDW Coeff of Bob 14.6 H (11.5-14.5) % Plt Count 295 (130-400) K/uL MPV 10.1 (7.4-10.4) fL Immature Gran % (Auto) 0.2 % Neut % (Auto) 80.8 % Lymph % (Auto) 8.2 % [place] % (Auto) 10.6 % Eos % (Auto) 0.1 % Baso % (Auto) 0.1 % Neut # (Auto) 11.71 H (1.4-6.5) K/uL Lymph # (Auto) 1.18 L (1.2-3.4) K/uL [place] # (Auto) 1.53 H (0.11-0.59) K/uL Eos # (Auto) 0.01 (0-0.5) K/uL Baso # (Auto) 0.01 (0-0.2) K/uL Immature Gran # (Auto) 0.03 H (0.00-0.02) K/uL PT (9.0-12.0) Seconds INR (0.9-1.1) Sodium 136 (136-145) mmol/L Potassium 3.5 (3.5-5.1) mmol/L Chloride 103 (98-107) mmol/L Carbon Dioxide 26 (21-32) mmol/L Anion Gap 7.0 (3-11) BUN 19 H (7-18) mg/dl Creatinine 0.86 (0.6-1.2) mg/dl Est Cr Clr Drug Dosing 56.9 ml/min Est GFR ( Amer) 75.5 ml/min Est GFR (Non-Af Amer) 65.2 ml/min BUN/Creatinine Ratio 22.2 H (10-20) Glucose 118 H (70-99) mg/dl Calcium 10.3 H (8.5-10.1) mg/dl Magnesium 2.0 (1.8-2.4) mg/dl Total Bilirubin 1.2 H (0.2-1) mg/dl AST 62 H (15-37) U/L ALT 34 (12-78) Alkaline Phosphatase 67 (45-117) U/L Ammonia (11-32) umol/L Total Creatine Kinase 858 H (26-192) U/L Troponin I < 0.015 (0-0.045) ng/ml Total Protein 8.0 (6.4-8.2) gm/dl Albumin 4.0 (3.4-5.0) gm/dl Globulin 4.0 (2.5-4.0) gm/dl Albumin/Globulin Ratio 1.0 (0.9-2) Lipase 117 (73-393) U/L Urine Color Urine Appearance (Clear) Urine pH (4.5-7.5) Ur Specific [place] (1.000-1.030) Urine Protein (Negative) Urine Glucose (UA) (Negative) Urine Ketones (Negative) Urine Blood (Negative) Urine Nitrite (Negative) Urine Bilirubin (Negative) Urine Urobilinogen (Negative) Ur Leukocyte Esterase (Negative) Urine WBC (Auto) (0-5) /hpf Urine RBC (Auto) (0-4) /hpf U Hyaline Cast (Auto) (0-5) /lpf U Epithel Cells (Auto) (0-5) /lpf Urine Bacteria (Auto) (Negative) Salicylates < 1.7 L (2.8-20) mg/dl Urine Opiates Screen (Neg) Ur Methadone, Qual (Neg) Acetaminophen < 2 L (10-30) ug/ml Urine Barbiturates (Neg) Ur Phencyclidine (PCP) (Neg) U Amphetamin/Meth Scrn (Neg) MDMA (Ecstasy) Screen (Neg) U Benzodiazepines Scrn (Neg) Ur Cocaine Metabolite (Neg) U Marijuana (THC) Screen (Neg) Ethyl Alcohol mg/dL (0-3) mg/dl SARS-CoV-2, RNA, NAAT (NEGATIVE) 09/21/21 09/21/21 09/21/21 Range/Units 14:53 14:53 14:56 WBC (4.8-10.8) K/uL RBC (4.2-5.4) M/uL Hgb (12.0-16.0) g/dL Hct (37-47) % MCV (80-100) fL MCH (25-34) pg MCHC (32-36) g/dL RDW Std Deviation (36.4-46.3) fL RDW Coeff of Bob (11.5-14.5) % Plt Count (130-400) K/uL MPV (7.4-10.4) fL Immature Gran % (Auto) % Neut % (Auto) % Lymph % (Auto) % [place] % (Auto) % Eos % (Auto) % Baso % (Auto) % Neut # (Auto) (1.4-6.5) K/uL Lymph # (Auto) (1.2-3.4) K/uL [place] # (Auto) (0.11-0.59) K/uL Eos # (Auto) (0-0.5) K/uL Baso # (Auto) (0-0.2) K/uL Immature Gran # (Auto) (0.00-0.02) K/uL PT 21.8 H (9.0-12.0) Seconds INR 2.3 H (0.9-1.1) Sodium (136-145) mmol/L Potassium (3.5-5.1) mmol/L Chloride (98-107) mmol/L Carbon Dioxide (21-32) mmol/L Anion Gap (3-11) BUN (7-18) mg/dl Creatinine (0.6-1.2) mg/dl Est Cr Clr Drug Dosing ml/min Est GFR ( Amer) ml/min Est GFR (Non-Af Amer) ml/min BUN/Creatinine Ratio (10-20) Glucose (70-99) mg/dl Calcium (8.5-10.1) mg/dl Magnesium (1.8-2.4) mg/dl Total Bilirubin (0.2-1) mg/dl AST (15-37) U/L ALT (12-78) Alkaline Phosphatase (45-117) U/L Ammonia 15.8 (11-32) umol/L Total Creatine Kinase (26-192) U/L Troponin I (0-0.045) ng/ml Total Protein (6.4-8.2) gm/dl Albumin (3.4-5.0) gm/dl Globulin (2.5-4.0) gm/dl Albumin/Globulin Ratio (0.9-2) Lipase (73-393) U/L Urine Color Urine Appearance (Clear) Urine pH (4.5-7.5) Ur Specific [place] (1.000-1.030) Urine Protein (Negative) Urine Glucose (UA) (Negative) Urine Ketones (Negative) Urine Blood (Negative) Urine Nitrite (Negative) Urine Bilirubin (Negative) Urine Urobilinogen (Negative) Ur Leukocyte Esterase (Negative) Urine WBC (Auto) (0-5) /hpf Urine RBC (Auto) (0-4) /hpf U Hyaline Cast (Auto) (0-5) /lpf U Epithel Cells (Auto) (0-5) /lpf Urine Bacteria (Auto) (Negative) Salicylates (2.8-20) mg/dl Urine Opiates Screen (Neg) Ur Methadone, Qual (Neg) Acetaminophen (10-30) ug/ml Urine Barbiturates (Neg) Ur Phencyclidine (PCP) (Neg) U Amphetamin/Meth Scrn (Neg) MDMA (Ecstasy) Screen (Neg) U Benzodiazepines Scrn (Neg) Ur Cocaine Metabolite (Neg) U Marijuana (THC) Screen (Neg) Ethyl Alcohol mg/dL < 3.0 (0-3) mg/dl SARS-CoV-2, RNA, NAAT (NEGATIVE) Imaging Data Radiologist's Impression: Cervical Spine CT 09/21/21 14:08 CT OF THE CERVICAL SPINE WITHOUT CONTRAST CLINICAL HISTORY: Found on ground. Evaluate for fracture. COMPARISON STUDY: No previous studies for comparison. TECHNIQUE: Helical axial images of the cervical spine were obtained without IV contrast. Sagittal and coronal reconstructions were viewed. Automated exposure control was utilized for the study. A dose lowering technique was utilized adhering to the principles of ALARA. FINDINGS: Slight rotation of C1 on C2 is likely positional. Vertebral body heights are maintained. No acute cervical spine fracture or subluxation is present. There is no prevertebral edema. Facet joints are intact. Moderate multilevel degenerative disc disease and facet arthrosis is most pronounced at the C5-C6 level. IMPRESSION: No acute cervical spine fracture or subluxation. ACT 112: Negative or not required by law. Electronically signed by: Zhang Aguiar M.D. 09/21/2021 2:42 PM Chest X-Ray 09/21/21 14:08 XR chest 1V portable CLINICAL HISTORY: Altered mental status. Evaluate for pneumonia. COMPARISON STUDY: Chest CT May 26, 2014. Chest radiograph April 17, 2021. FINDINGS: There are median sternotomy wires and a prosthetic aortic valve. Cardiomegaly is unchanged. There is no evidence for pulmonary edema. No airspace opacities are identified to suggest pneumonia. The appearance of the chest is unchanged. IMPRESSION: No acute cardiopulmonary findings. No change in appearance of the chest. ACT 112: Negative or not required by law. Electronically signed by: Zhang Augiar M.D. 09/21/2021 2:[address] 09/21/21 14:08 CT SCAN OF THE BRAIN WITHOUT IV CONTRAST CLINICAL HISTORY: Change in mental status. COMPARISON STUDY: CT of the brain dated 04/17/2021. TECHNIQUE: Unenhanced axial CT scan of the brain is performed from the vertex to the skull base. A dose lowering technique was utilized adhering to the principles of ALARA. The skull base was scanned twice due to motion artifact. CT DOSE: 1228.42 mGy.cm FINDINGS: Brain parenchyma: There are age-related involutional changes noting moderate subcortical and periventricular microangiopathic change. There is no hemorrhage, mass effect, or evidence of acute territorial ischemia by CT criteria. A small focus of left parietal encephalomalacia is unchanged and consistent with a remote infarct. Enriquez-white matter differentiation is preserved. No extra-axial fluid collection is seen. Ventricles, sulci, cisterns: Prominent secondary to involutional change. Intracranial vasculature: There is atherosclerotic calcification of the cavernous carotid and vertebral arteries. Calvarium: Unremarkable. Sinuses and mastoids: The visualized paranasal sinuses are clear. The mastoid air cells are well pneumatized. Orbits: The bony orbits are grossly intact. There are bilateral ocular lens implants. IMPRESSION: There is no hemorrhage, mass effect, or evidence of acute territorial ischemia by CT criteria. ACT 112: Negative or not required by law. Electronically signed by: Donal Gonzalez M.D. 09/21/2021 2:33 PM ECG Data Attestation: I personally reviewed and interpreted this ECG as follows: Indication: + altered mental status and + tachycardia Rate (beats per minute): 147 Rhythm: + atrial fibrillation ECG Intervals/blocks: + Right Bundle branch block ECG Findings: no PVCs Comparison ECG Date: from (April 17, 2021) Change: the following changes noted (She had a paced rhythm at the time.) MDM Narrative I did evaluate the patient as noted above. She is presenting with altered mental status for the past 2 days. She was found at home on the ground today by her son. It is not known how long she was on the ground. She was given IV Ativan prior to arrival due to her combative nature. I did place an order for continuous cardiac monitoring. The monitor showed atrial fibrillation with RVR at a rate of 142 bpm. I did order and personally review the patient's 12-lead EKG as described above. She has A. fib with RVR. I did treat her with Cardizem 5 mg IV. She was placed on a continuous drip at 5 mg/h IV. I did order and personally reviewed the images of the patient's chest x-ray as described above. There is no evidence of pneumonia. I did order a urine analysis. The urine is cloudy but she has no signs of a UTI. did order and review the patient's blood work as noted in the electronic medical record. Her white count is elevated at 14.47. She has no anemia or thrombocytopenia. Electrolytes are unremarkable other than a calcium of 10.3. Also her creatinine kinase is 858. I did treat her with normal saline IV. Her LFTs show a slight elevation in the bilirubin at 1.2 and AST at 62. Troponin is negative. Rapid Covid testing is negative. I did order a CT of the head and cervical spine. I did review the images myself as well as the radiology report as described above. There is no evidence of acute process within the brain. No cervical fractures are noted. I did reassess the patient. Her heart rate is about 100-110. She remains asleep. I did discuss the results with her daughter in law. She will be hospitalized for further care and evaluation. I did discuss case with the hospitalist and heel caser. I did reassess the patient. She remains rather somnolent. I did try to have her mfkysrkj-tl-mwh wake her up. She opened her eyes but did not respond verbally. Her wjucqjzv-xm-lyz does state that she has not slept in 2 days. Her INR came back 2.3. At this time I do not know that the benefits of a lumbar puncture outweigh the risks including spinal hematoma. She has not been complaining of headaches. She has not been febrile. Her white blood cell count can be elevated from just lying on the floor for prolonged period of time. Further management as per the inpatient team. Impression & Plan Atrial fibrillation with RVR, Acute alteration in mental status, Hypercalcemia, Elevated CPK, Anticoagulated on Coumadin Discharge Plan Visit Data Chief Complaint: Altered Mental Status Stated Complaint: [facility] ED Provider: Daryrn Gomez Discharge Problem: Atrial fibrillation with RVR, Acute alteration in mental status, Hypercalcemia, Elevated CPK, Anticoagulated on Coumadin Patient Disposition: Admitted As Inpatient Forms Stand Alone Forms: My [facility] Prescriptions Prescriptions: No Action metoprolol succinate 100 mg tablet extended release 24 hr 100 mg PO BID Qty: 180 RF: 3 glucosamine-chondroitin 500-400 mg capsule 1 cap PO BID RF: 0 warfarin 2.5 mg Tablet 2.5 mg PO UD RF: 0 bumetanide 1 mg Tablet 0.5 - 1 mg PO DAILY RF: 0 multivitamin Tablet 1 tab PO DAILY RF: 0 acetaminophen [Tylenol] 325 mg Tablet 325 mg PO QID PRN (Reason: Pain) RF: 0 loratadine 10 mg Tablet 10 mg PO DAILY RF: 0 cyclobenzaprine 5 mg tablet 5 mg PO TID PRN (Reason: Muscle Spasm) RF: 0 Prevagen 10 mg PO DAILY RF: 0 Referrals Referrals: Sacha Lora MD [Primary Care Provider] -
[2021-09-21] MEDS ORDERED: dilTIAZem HCl 5 MG/ML 5 ML VIAL IV STA (14:30)
[2021-09-21] MEDS ORDERED: STAT IV Infusion **Titration per Protocol STA (14:30)
--- NOTE | 2021-09-21 14:34 | CT Scan Report ---
CT SCAN OF THE BRAIN WITHOUT IV CONTRAST CLINICAL HISTORY: Change in mental status. COMPARISON STUDY: CT of the brain dated 04/17/2021. TECHNIQUE: Unenhanced axial CT scan of the brain is performed from the vertex to the skull base. A do se lowering technique was utilized adhering to the principles of ALARA. The skull base was scanned tw ice due to motion artifact. CT DOSE: 1228.42 mGy.cm FINDINGS: Brain parenchyma: There are age-related involutional changes noting moderate subcortical and periven tricular microangiopathic change. There is no hemorrhage, mass effect, or evidence of acute territori al ischemia by CT criteria. A small focus of left parietal encephalomalacia is unchanged and consiste nt with a remote infarct. Enriquez-white matter differentiation is preserved. No extra-axial fluid collec tion is seen. Ventricles, sulci, cisterns: Prominent secondary to involutional change. Intracranial vasculature: There is atherosclerotic calcification of the cavernous carotid and vertebr al arteries. Calvarium: Unremarkable. Sinuses and mastoids: The visualized paranasal sinuses are clear. The mastoid air cells are well pneu matized. Orbits: The bony orbits are grossly intact. There are bilateral ocular lens implants. IMPRESSION: There is no hemorrhage, mass effect, or evidence of acute territorial ischemia by CT basilio nava. ACT 112: Negative or not required by law. Electronically signed by: Donal Gonzalez M.D. 09/21/2021 2:33 PM
[2021-09-21 14:35] LABS: Appearance Urine Cloudy (Clear); Bacteria Urine Automated Negative (Negative); Bilirubin Urine Negative (Negative); Blood Urine 1+ (Negative); Color Urine Yellow; Epithelial Cell Urine Auto >30 /lpf (0-5); Glucose Urine UA Negative (Negative); Ketones Urine 1+ (Negative); Leukocyte Esterase Urine Negative (Negative); Nitrite Urine Negative (Negative); Protein Urine 3+ (Negative); Specific Gravity Urine 1.019 (1.000-1.030); Urobilinogen Urine Negative (Negative)
--- NOTE | 2021-09-21 14:39 | XRay Report ---
XR chest 1V portable CLINICAL HISTORY: Altered mental status. Evaluate for pneumonia. COMPARISON STUDY: Chest CT May 26, 2014. Chest radiograph April 17, 2021. FINDINGS: There are median sternotomy wires and a prosthetic aortic valve. Cardiomegaly is unchanged. There is no evidence for pulmonary edema. No airspace opacities are identified to suggest pneumonia. The appearance of the chest is unchanged. IMPRESSION: No acute cardiopulmonary findings. No change in appearance of the chest. ACT 112: Negative or not required by law. Electronically signed by: Zhang Aguiar M.D. 09/21/2021 2:38 PM
--- NOTE | 2021-09-21 14:43 | CT Scan Report ---
CT OF THE CERVICAL SPINE WITHOUT CONTRAST CLINICAL HISTORY: Found on ground. Evaluate for fracture. COMPARISON STUDY: No previous studies for comparison. TECHNIQUE: Helical axial images of the cervical spine were obtained without IV contrast. Sagittal a nd coronal reconstructions were viewed. Automated exposure control was utilized for the study. A do se lowering technique was utilized adhering to the principles of ALARA. FINDINGS: Slight rotation of C1 on C2 is likely positional. Vertebral body heights are maintained. No acute cervical spine fracture or subluxation is present. There is no prevertebral edema. Facet joint s are intact. Moderate multilevel degenerative disc disease and facet arthrosis is most pronounced a t the C5-C6 level. IMPRESSION: No acute cervical spine fracture or subluxation. ACT 112: Negative or not required by law. Electronically signed by: Zhang Aguiar M.D. 09/21/2021 2:42 PM
[2021-09-21] MEDS: dilTIAZem HCL 125 MG in DEXTROSE 5% 100 ML IV SCH (14:56)
[2021-09-21 15:05] LABS: Amphetamines+Metham, Urine Neg (Neg); Barbiturates, Urine Neg (Neg); Benzodiazepine, Urine Neg (Neg); Cocaine, Urine Neg (Neg); MDMA (Ecstacy), Urine Neg (Neg); Methadone, Urine Neg (Neg); Opiate, Urine Neg (Neg); Phencyclidine, Urine Neg (Neg)
[2021-09-21 15:17] LABS: Basophils # (auto) 0.01 K/uL (0-0.2); Basophils % (auto) 0.1 %; Eosinophils # (auto) 0.01 K/uL (0-0.5); Eosinophils % (auto) 0.1 %; Hematocrit (blood only) 46.5 % (37-47); Hemoglobin 15.4 g/dL (12.0-16.0); Immature Granulocytes # (auto) 0.03 K/uL (0.00-0.02); Immature Granulocytes % (auto) 0.2 %; Lymphocytes # (auto) 1.18 K/uL (1.2-3.4); Lymphocytes % (auto) 8.2 %; Mean Corpuscular Hemoglobin 28.2 pg (25-34); Mean Corpuscular Hgb Conc 33.1 g/dL (32-36); Mean Corpuscular Volume 85.2 fL (80-100); Mean Platelet Volume 10.1 fL (7.4-10.4); Monocytes # (auto) 1.53 K/uL (0.11-0.59); Monocytes % (auto) 10.6 %; Neutrophils # (auto) 11.71 K/uL (1.4-6.5); Neutrophils % (auto) 80.8 %; Platelet Count 295 K/uL (130-400); RDW Coefficient of Variation 14.6 % (11.5-14.5); RDW Standard Deviation 44.7 fL (36.4-46.3); Red Blood Count 5.46 M/uL (4.2-5.4); White Blood Count 14.47 K/uL (4.8-10.8)
[2021-09-21 15:39] LABS: Acetaminophen < 2 ug/ml (10-30); BUN Creatinine Ratio 22.2 (10-20); Blood Urea Nitrogen 19 mg/dl (7-18); Calcium 10.3 mg/dl (8.5-10.1); Carbon Dioxide 26 mmol/L (21-32); Chloride 103 mmol/L (98-107); Creatinine Clr Calc Pharmacy 56.9 ml/min; Est GFR (African American) 75.5 ml/min; Est GFR (Non-African American) 65.2 ml/min; Glucose 118 mg/dl (70-99); Lipase 117 U/L (73-393); Potassium 3.5 mmol/L (3.5-5.1); Salicylate < 1.7 mg/dl (2.8-20); Sodium 136 mmol/L (136-145)
[2021-09-21 15:44] LABS: Alanine Aminotransferase 34 (12-78); Alkaline Phosphatase 67 U/L (45-117); Aspartate Aminotransferase 62 U/L (15-37); Bilirubin,Total 1.2 mg/dl (0.2-1); Creatine Kinase 858 U/L (26-192); Troponin I < 0.015 ng/ml (0-0.045)
[2021-09-21] MEDS ORDERED: SODIUM CHLORIDE 0.9% 500 ML IV SCH (16:00)
[2021-09-21 16:42] LABS: INR 2.3 (0.9-1.1); Prothrombin Time 21.8 Seconds (9.0-12.0)
--- NOTE | 2021-09-21 18:20 | History & Physical Report ---
Date of Service September 21, 2021 Assessment & Plan (1) Acute alteration in mental status: Plan: Unclear etiology of AMS at present. Mildly elevated WBCs but no febrile, no localizing symptoms for infection. Found to be in atrial fibrillation with rapid ventricular response in the ED. - Admit for additional work-up - Check blood and urine cultures - Start empiric Rocephin while awaiting results - Consider brain MRI but pt has a PPM - will need to discuss with cardiology if pacer is MRI compatible - Labs in AM - Gentle IVF with potassium repletion - If mental status not improving, will consider neurology consultation (2) Atrial fibrillation with RVR: Plan: History of permanent atrial fibrillation. There is a question of if pt has been taking her beta-blockers as prescribed. Currently on cardizem gtt for rate control. - Continue cardizem gtt for now - Consult cardiology for additional recommendations - Restart home beta-milton (3) Elevated CPK: Plan: - Gentle IVF - Recheck in AM (4) Hypercalcemia: Plan: Found to have elevated PTH as an outpatient with borderline calcium elevation - will need additional work-up outpatient (5) Anticoagulated on Coumadin: Plan: INR currently therapeutic at 2.3 - Continue outpatient warfarin dosing - Daily INR (6) HTN (hypertension): Plan: - Resume home beta-milton - Add Lisinopril 5 mg daily - pt was taking previously (7) CKD (chronic kidney disease) stage 3, GFR 30-59 ml/min: Plan: Appears to be at baseline creatinine - follow labs Plan: Pt seen and discussed with attending physician, Dr. Lau. Plan of care discussed and as outlined above. [id number] Brina updated at bedside. All questions answered. Family is willing to consider placement if that is determined to be in patient's best interest. Code Status: Full code DVT Prophylaxis: continue warfarin Jmaes Yousif PA-C History of Present Illness Chief Complaint: Altered mental status Primary Care Provider: Sacha Lora MD This is a 76 y/o female with a PMH of tachy-melissa syndrome s/p PPM, permanent a trial fibrillation on chronic anticoagulation with warfarin, s/p TAVR, HTN, CKD3, dyslipidemia, and diastolic heart failure who was brought to the ED today via EMS due to worsening acute confusion. History is obtained from [id number] at bedside since pt is currently sedated. Per RAMESH, pt has become increasingly confused over the past three days. She was seen by her PCP office two days ago and labs were collected. MRI brain was ordered but had not yet been scheduled. That night when RAMESH brought pt home after the appt she noticed that pt had a bottle of cyclobenzaprine which pt reported she is taking at least daily. Pt took melatonin 5 mg that night and went to bed. Yesterday, RAMESH called pt to check on her and encourage her to eat. Pt seemed more confused so RAMESH went to the house to check on her. She found the pt's car running in the garage with the door closed but pt was not in the car. Her appetite has been decreased but she did eat yesterday afternoon and seemed brighter and more alert in the evening. Around 8:30 pm yesterday, RAMESH helped pt turn everything off and put her to bed. Around 12:30 pm today, the pt's son went over to check on pt and found her lying on the floor, smelling of urine and with dog feces on her shoulder. The lights and TV were on and pt's wallet was out when everything was put away and off last night indicating that at some point pt appears to have gotten up and been moving around her home. Initially, when found on the floor, pt was very quiet and seemed to be barely breathing at times. Family called EMS. When they attempted to move pt onto the stretcher she became combative and had to be sedated to safely transport and evaluate her. Currently, she remains sedated in the ED. RAMESH reports pt will open her eyes occasionally but is not speaking, does not make eye contact. Family does not recall similar episodes prior. They are unsure if pt is taking her medication correctly, specifically the warfarin and the metoprolol. There was concern that pt had recently decreased the metoprolol on her own so she was supposed to increase it back to 100 mg BID when she was seen two days ago. Allergies Allergy/AdvReac Type Severity Reaction Status Date / Time furosemide Allergy Unknown RASH Verified 05/24/21 13:32 lactose Allergy Unknown Unknown Unverified 05/24/21 13:32 Mjhsphf-GJK-DiD Reductase Allergy Unknown . Verified 05/24/21 13:32 Inhibitor [Ynbpsxr-Hkf-Miu Reductase Inhibitor] enoxaparin Allergy hematoma, Verified 09/21/21 14:58 skin sloughing ezetimibe AdvReac Unknown nausea,diar Verified 05/24/21 13:32 rabia Home Medications Medication Instructions Recorded Confirmed Type glucosamine-chondroitin 500 mg-400 2 cap PO DAILY cap 05/11/19 09/21/21 History mg capsule warfarin 2.5 mg tablet 2.5 mg PO UD 09/10/19 09/21/21 History metoprolol succinate 100 mg 100 mg PO BID #180 tab 05/24/21 09/21/21 Rx tablet,extended release 24 hr Prevagen 10 mg PO DAILY 09/21/21 09/21/21 History acetaminophen 325 mg tablet 325 mg PO QID PRN 09/21/21 09/21/21 History (Tylenol) cyclobenzaprine 5 mg tablet 5 mg PO TID PRN 09/21/21 09/21/21 History loratadine 10 mg tablet 10 mg PO DAILY 09/21/21 09/21/21 History multivitamin 1 tab PO DAILY 09/21/21 09/21/21 History Past Med/Surg History Medical History CKD (chronic kidney disease) stage 3, GFR 30-59 ml/min Diastolic heart failure Dyslipidemia History of pacemaker HTN (hypertension) Pacemaker malfunction (05/26/14) Paroxysmal a-fib Permanent atrial fibrillation Tachy-melissa syndrome Third degree AV block Surgical History History of aortic valve replacement History of cataract surgery History of hysterectomy History of radiofrequency ablation procedure for cardiac arrhythmia History of umbilical hernia repair Hx of tonsillectomy S/P AVR (aortic valve replacement) Family History Other Coronary heart disease Diabetes Social History Smoking Status: Never smoker Second Hand Exposure: No; Do You Dip or Chew Tobacco: No; Tobacco Cessation Education Requested by Patient: No Hx Alcohol Use: No Hx Substance Use: No Preferred Language: [place] Communication Ability: Effective Detective Supervisor Required: No Beliefs That Will Affect Care: None marital status: Single Current Living Situation: Alone current occupational status: retired Other Information That Helps Us Care for You: No Feels Safe at Home: Yes Safety Concerns: Feels Safe At This Time Assistive Devices: None Review of Systems Review of Systems: Unobtainable due to cognitive status (acute confusion) Physical Exam Constitutional: sleeping - arouses to stimulation but not responding to questions Eyes: + anicteric sclerae Neck: trachea midline Respiratory: no respiratory distress and no labored breathing Auscultation: lungs clear to auscultation bilaterally; no rales, no rhonchi and no wheezes Cardiovascular: Rate/Rhythm: + tachycardic and + irregularly irregular Vessels: radial pulses present Extremities: no pedal edema Gastrointestinal (Abdomen): Inspection/Auscultation: normal bowel sounds; abdomen not distended Percussion/Palpation: abdomen soft Skin: no rashes and no jaundice Neurologic: + obtunded Results & Data Results & Data ([facility]) Vital Signs (Past 12 Hours) Vital Signs Temp Pulse Pulse Resp BP BP Pulse Ox 09/21/21 15:00 96 H 20 166/120 H 96 09/21/21 14:45 115 H 18 166/132 H 09/21/21 14:30 36.2 C L 132 H 126 H 18 152/126 H 152/126 H 96 Laboratory Results Laboratory Results - last 24 hr 09/21/21 09/21/21 09/21/21 14:18 14:18 14:52 WBC RBC Hgb Hct MCV MCH MCHC RDW Std Deviation RDW Coeff of Bob Plt Count MPV Immature Gran % (Auto) Neut % (Auto) Lymph % (Auto) [place] % (Auto) Eos % (Auto) Baso % (Auto) Neut # (Auto) Lymph # (Auto) [place] # (Auto) Eos # (Auto) Baso # (Auto) Immature Gran # (Auto) PT INR Sodium Potassium Chloride Carbon Dioxide Anion Gap BUN Creatinine Est Cr Clr Drug Dosing Est GFR ( Amer) Est GFR (Non-Af Amer) BUN/Creatinine Ratio Glucose Calcium Magnesium Total Bilirubin AST ALT Alkaline Phosphatase Ammonia Total Creatine Kinase Troponin I Total Protein Albumin Globulin Albumin/Globulin Ratio Lipase Urine Color Yellow Urine Appearance Cloudy A Urine pH 7.0 Ur Specific [place] 1.019 Urine Protein 3+ H Urine Glucose (UA) Negative Urine Ketones 1+ H Urine Blood 1+ H Urine Nitrite Negative Urine Bilirubin Negative Urine Urobilinogen Negative Ur Leukocyte Esterase Negative Urine WBC (Auto) 1-5 Urine RBC (Auto) 5-10 H U Hyaline Cast (Auto) 10-30 H U Epithel Cells (Auto) >30 H Urine Bacteria (Auto) Negative Salicylates Urine Opiates Screen Neg Ur Methadone, Qual Neg Acetaminophen Urine Barbiturates Neg Ur Phencyclidine (PCP) Neg U Amphetamin/Meth Scrn Neg MDMA (Ecstasy) Screen Neg U Benzodiazepines Scrn Neg Ur Cocaine Metabolite Neg U Marijuana (THC) Screen Neg Ethyl Alcohol mg/dL SARS-CoV-2, RNA, NAAT NEGATIVE 09/21/21 09/21/21 09/21/21 14:53 14:53 14:53 WBC 14.47 H RBC 5.46 H Hgb 15.4 Hct 46.5 MCV 85.2 MCH 28.2 MCHC 33.1 RDW Std Deviation 44.7 RDW Coeff of Bob 14.6 H Plt Count 295 MPV 10.1 Immature Gran % (Auto) 0.2 Neut % (Auto) 80.8 Lymph % (Auto) 8.2 [place] % (Auto) 10.6 Eos % (Auto) 0.1 Baso % (Auto) 0.1 Neut # (Auto) 11.71 H Lymph # (Auto) 1.18 L [place] # (Auto) 1.53 H Eos # (Auto) 0.01 Baso # (Auto) 0.01 Immature Gran # (Auto) 0.03 H PT INR Sodium 136 Potassium 3.5 Chloride 103 Carbon Dioxide 26 Anion Gap 7.0 BUN 19 H Creatinine 0.86 Est Cr Clr Drug Dosing 56.9 Est GFR ( Amer) 75.5 Est GFR (Non-Af Amer) 65.2 BUN/Creatinine Ratio 22.2 H Glucose 118 H Calcium 10.3 H Magnesium 2.0 Total Bilirubin 1.2 H AST 62 H ALT 34 Alkaline Phosphatase 67 Ammonia Total Creatine Kinase 858 H Troponin I < 0.015 Total Protein 8.0 Albumin 4.0 Globulin 4.0 Albumin/Globulin Ratio 1.0 Lipase 117 Urine Color Urine Appearance Urine pH Ur Specific [place] Urine Protein Urine Glucose (UA) Urine Ketones Urine Blood Urine Nitrite Urine Bilirubin Urine Urobilinogen Ur Leukocyte Esterase Urine WBC (Auto) Urine RBC (Auto) U Hyaline Cast (Auto) U Epithel Cells (Auto) Urine Bacteria (Auto) Salicylates < 1.7 L Urine Opiates Screen Ur Methadone, Qual Acetaminophen < 2 L Urine Barbiturates Ur Phencyclidine (PCP) U Amphetamin/Meth Scrn MDMA (Ecstasy) Screen U Benzodiazepines Scrn Ur Cocaine Metabolite U Marijuana (THC) Screen Ethyl Alcohol mg/dL SARS-CoV-2, RNA, NAAT 09/21/21 09/21/21 09/21/21 14:53 14:53 14:56 WBC RBC Hgb Hct MCV MCH MCHC RDW Std Deviation RDW Coeff of Bob Plt Count MPV Immature Gran % (Auto) Neut % (Auto) Lymph % (Auto) [place] % (Auto) Eos % (Auto) Baso % (Auto) Neut # (Auto) Lymph # (Auto) [place] # (Auto) Eos # (Auto) Baso # (Auto) Immature Gran # (Auto) PT 21.8 H INR 2.3 H Sodium Potassium Chloride Carbon Dioxide Anion Gap BUN Creatinine Est Cr Clr Drug Dosing Est GFR ( Amer) Est GFR (Non-Af Amer) BUN/Creatinine Ratio Glucose Calcium Magnesium Total Bilirubin AST ALT Alkaline Phosphatase Ammonia 15.8 Total Creatine Kinase Troponin I Total Protein Albumin Globulin Albumin/Globulin Ratio Lipase Urine Color Urine Appearance Urine pH Ur Specific [place] Urine Protein Urine Glucose (UA) Urine Ketones Urine Blood Urine Nitrite Urine Bilirubin Urine Urobilinogen Ur Leukocyte Esterase Urine WBC (Auto) Urine RBC (Auto) U Hyaline Cast (Auto) U Epithel Cells (Auto) Urine Bacteria (Auto) Salicylates Urine Opiates Screen Ur Methadone, Qual Acetaminophen Urine Barbiturates Ur Phencyclidine (PCP) U Amphetamin/Meth Scrn MDMA (Ecstasy) Screen U Benzodiazepines Scrn Ur Cocaine Metabolite U Marijuana (THC) Screen Ethyl Alcohol mg/dL < 3.0 SARS-CoV-2, RNA, NAAT Diagnostic Findings CT Head 09/21/21 - IMPRESSION: There is no hemorrhage, mass effect, or evidence of acute territorial ischemia by CT criteria. Chest X-ray 09/21/21 - IMPRESSION: No acute cardiopulmonary findings. No change in appearance of the chest. Cervical Spine CT 09/21/21 - IMPRESSION: No acute cervical spine fracture or subluxation. Medications Administered Diltiazem HCl 125 mg/ Dextrose 125 mls @ 10 mls/hr IV .[id number] PENDING SALE TO [facility]; Protocol Stop: 10/21/21 14:29 Last Titration: 09/21/21 16:03 Dose: 10 mg/hr, 10 mls/hr Documented by: [id number] Cosigned by: [id number] Admin: 09/21/21 14:56 Dose: 5 mg/hr, 5 mls/hr Documented by: [id number] Cosigned by: [id number] Sodium Chloride (Nss) 500 mls @ 125 mls/hr IV .Q4H HITESH Stop: 10/21/21 15:59 Last Admin: 09/21/21 16:04 Dose: 125 mls/hr Documented by: [id number] Discontinued Medications Diltiazem HCl (Diltiazem Hcl 5 Mg/Ml 5 Ml Vial) 5 mg IV NOW STA Stop: 09/21/21 14:31 Last Admin: 09/21/21 14:39 Dose: 5 mg Documented by: [id number] Cosigned by: [id number] Miscellaneous (Stat Iv Infusion Titration Per Protocol) 1 ea N/A NOW STA Stop: 09/21/21 14:31 Last Admin: 09/21/21 15:29 Dose: 1 ea Documented by: [id number] Code Status & VTE Plan VTE Prophylaxis Plan VTE Prophylaxis will be ordered: Yes Supervising Physician Co-Signing Physician Notes Patient is a 76-year-old female with history of tachybradycardia syndrome, chronic anticoagulation with Coumadin, CKD stage III and other medical problems presents with history of altered mental status. Patient was unable to provide any history. Patient was found by family on the floor. Patient has been having worsening confusion since past 3 days. Poor appetite lately. Please review HPI for complete details of presentation. CT head and, CT neck showed no acute findings. She was found to be in A. fib RVR while in ED. Currently on Cardizem drip. CK level elevated at 858. INR therapeutic 2.3. White blood cell count elevated 14 K. Urinalysis abnormal suggestive of possible UTI. On exam patient is lethargic, drowsy, no apparent distress, normocephalic atraumatic, lungs are clear to auscultation, normal breath sounds, irregularly irregular rhythm, tachycardia, pacemaker on left side of the chest, abdomen soft, nontender, normal bowel sounds, grossly moves all extremities. Altered mental status unclear etiology. Hold cyclobenzaprine for now. Avoid any narcotics, sedating meds. Consider MRI if pacemaker is compatible or repeat CT if needed. Agree with Cornel leonard for A. fib. Consult cardiology. Restart metoprolol. Continue IV fluids and recheck CPK level tomorrow. Hold Bumex for now. monitor INR and continue Coumadin for now. N.p.o. for now until patient is alert, awake, fall precautions, aspiration precautions. I personally reviewed the record. Patient is interviewed and examined at bedside. Patient's care is coordinated with Steff Yousif PA-C. Please refer to the documentation above for details of patient's presentation and for discussion of other issues. (1) HTN (hypertension) Hypertension type: unspecified Qualified Code(s): I10 - Essential (primary) hypertension
[2021-09-21] MEDS ORDERED: POTASSIUM CHLORIDE / WTR 10 MEQ/100 ML PLCT IV STA (18:46)
[2021-09-21] MEDS ORDERED: WARFARIN SOD 2.5 MG TAB PO SCH (18:46)
[2021-09-21] MEDS ORDERED: LABETALOL HCL IV 5 MG/ML 20ML IV PRN (19:59)
[2021-09-21] MEDS ORDERED: ACETAMINOPHEN 325 MG TAB PO PRN (19:59)
[2021-09-21] MEDS ORDERED: WARFARIN SOD 1.25 MG TAB PO ONE (20:00)
[2021-09-21] MEDS ORDERED: NSS + 20MEQ KCL 20 MEQ/1,000 ML BAG IV SCH (20:30)
[2021-09-21] MEDS: cefTRIAXone SODIUM 1,000 MG in DEXTROSE 5% 50 ML IV SCH (20:51)
[2021-09-21] MEDS: METOPROLOL SUCC 50MG EXT REL TAB PO SCH (20:51)
[2021-09-22] MEDS: dilTIAZem HCL 125 MG in DEXTROSE 5% 100 ML IV SCH ×3 (02:20→19:00)
[2021-09-22 06:21] LABS: Basophils # (auto) 0.01 K/uL (0-0.2); Basophils % (auto) 0.1 %; Eosinophils # (auto) 0.01 K/uL (0-0.5); Eosinophils % (auto) 0.1 %; Hematocrit (blood only) 45.8 % (37-47); Hemoglobin 15.1 g/dL (12.0-16.0); Immature Granulocytes # (auto) 0.03 K/uL (0.00-0.02); Immature Granulocytes % (auto) 0.2 %; Lymphocytes % (auto) 14.8 %; Mean Corpuscular Hemoglobin 28.3 pg (25-34); Mean Corpuscular Volume 85.8 fL (80-100); Mean Platelet Volume 10.6 fL (7.4-10.4); Monocytes # (auto) 1.32 K/uL (0.11-0.59); Monocytes % (auto) 10.8 %; Neutrophils # (auto) 9.03 K/uL (1.4-6.5); Platelet Count 268 K/uL (130-400); RDW Coefficient of Variation 14.8 % (11.5-14.5); RDW Standard Deviation 46.2 fL (36.4-46.3); Red Blood Count 5.34 M/uL (4.2-5.4)
[2021-09-22 06:31] LABS: INR 2.6 (0.9-1.1); Prothrombin Time 24.6 Seconds (9.0-12.0)
[2021-09-22 06:52] LABS: BUN Creatinine Ratio 24.1 (10-20); Calcium 10.2 mg/dl (8.5-10.1); Creatinine Clr Calc Pharmacy 49.6 ml/min; Est GFR (African American) 65.3 ml/min; Est GFR (Non-African American) 56.3 ml/min; Magnesium 2.2 mg/dl (1.8-2.4); Potassium 4.1 mmol/L (3.5-5.1)
--- NOTE | 2021-09-22 08:54 | Cardiology Consultation ---
Date of Consultation September 22, 2021 Assessment & Plan (1) Acute encephalopathy: (2) Atrial fibrillation with RVR: CT of brain without acute pathology. Pt with history of [employer] pacemaker with generator change in 2013, leads date back to 2006. I spoke to [employer] relations liaison and confirmed device is NOT MRI compatible. Agree with sepsis work up. Empiric antibiotics for now. Avoiding sedatives. OK for gentle IVF. Update echocardiogram. Oral medications including metoprolol , lisinopril , and coumadin all on hold. Continue IV diltiazem for rate control and BP control. Add IV metoprolol , 5 mg IV q6 hrs standing. INR 2.6. Hold coumadin as unable to take oral medications. Repeat INR daily. When INR < 2, start heparin bridge. Pt with history of past paroxysmal, likely persistent / permanent AF now per recent EP consult as outpatient. History of Present Illness Attending Physician: Alvaro Lau MD History of Present Illness Letty Corea is a 76 year old female seen in cardiology consultation for the evaluation of atrial fibrillation with rapid ventricular response. The patient is well known to our cardiology practice. Her primary instructional aide is Dr Hernandez. She also follows with Dr Lane from an EP standpoint. Mods recently amlodipine 5 mg daily was added to her medication routine at the time of at clinical pharmacy appointment on 09/13/21 for treatment of hypertension. Per review of her chart, the patient presented via the emergency department yesterday 09/21/2021 via EMS due to worsening confusion. The patient apparently was noted to have worsening lethargy over a 3-day interval. There are concerns that the patient had perhaps been taking cyclobenzaprine. The patient's family had apparently found her at 12:30 PM yesterday lying on the floor with unknown downtime. CPK mildly elevated. Patient was noted to have atrial fibrillation with rapid ventricular spots, for which she is now on IV diltiazem at a rate of 15 mg/h, with ventricular rate in the range of 100 to 105 bpm at the time my assessment. She is somnolent, unable to provide any additional history. Problem List: 1. bicuspid aortic valve, bioprosthetic surgical AVR 2004 2. Complete heart block s/p ppm initially in 11/2006; generator change in February, with leads switched in the header, for which revision took place 05/2014 3. Persistent AF (probably becoming permanent) h/o PVI ablation 12/2014, 09/2017 complicated with groin hematomas; on digoxin, high dose toprol and coumadin [id number] 5 (age, female, HTN, CAD) 4. Severe bioprosthetic aortic regurgitation prompting TAVR 10/2019 5. Chronic heart failure with preserved EF, NYHA Class II 6. HTN 7. HLD with intolerance of statin therapy and ezetimibe. 8. CAD minimal non-obstructive by cath 2019 9. CKD stage III Allergies Allergy/AdvReac Type Severity Reaction Status Date / Time furosemide Allergy Unknown RASH Verified 05/24/21 13:32 lactose Allergy Unknown Unknown Unverified 05/24/21 13:32 Ecbafos-CNW-GbV Reductase Allergy Unknown . Verified 05/24/21 13:32 Inhibitor [Pmbsbyl-Nva-Gqf Reductase Inhibitor] enoxaparin Allergy hematoma, Verified 09/21/21 14:58 skin sloughing ezetimibe AdvReac Unknown nausea,diar Verified 05/24/21 13:32 rabia Home Medications Medication Instructions Recorded Confirmed Type glucosamine-chondroitin 500 mg-400 2 cap PO DAILY cap 05/11/19 09/21/21 History mg capsule warfarin 2.5 mg tablet 2.5 mg PO UD 09/10/19 09/21/21 History metoprolol succinate 100 mg 100 mg PO BID #180 tab 05/24/21 09/21/21 Rx tablet,extended release 24 hr Prevagen 10 mg PO DAILY 09/21/21 09/21/21 History acetaminophen 325 mg tablet 325 mg PO QID PRN 09/21/21 09/21/21 History (Tylenol) cyclobenzaprine 5 mg tablet 5 mg PO TID PRN 09/21/21 09/21/21 History loratadine 10 mg tablet 10 mg PO DAILY 09/21/21 09/21/21 History multivitamin 1 tab PO DAILY 09/21/21 09/21/21 History Patient History Medical History CKD (chronic kidney disease) stage 3, GFR 30-59 ml/min Diastolic heart failure Dyslipidemia History of pacemaker HTN (hypertension) Pacemaker malfunction (05/26/14) Paroxysmal a-fib Permanent atrial fibrillation Tachy-melissa syndrome Third degree AV block Surgical History History of aortic valve replacement History of cataract surgery History of hysterectomy History of radiofrequency ablation procedure for cardiac arrhythmia History of umbilical hernia repair Hx of tonsillectomy S/P AVR (aortic valve replacement) Family History Other Coronary heart disease Diabetes Social History Smoking Status: Never smoker Second Hand Exposure: No; Do You Dip or Chew Tobacco: No; Tobacco Cessation Education Requested by Patient: No Hx Alcohol Use: No Hx Substance Use: No Preferred Language: Lithuanian Communication Ability: Effective Hand Candy Cutter Required: No Beliefs That Will Affect Care: None marital status: Single Current Living Situation: Alone current occupational status: retired Other Information That Helps Us Care for You: No Feels Safe at Home: Yes Safety Concerns: Feels Safe At This Time Assistive Devices: None Review of Systems Review of Systems: Unobtainable due to reduced consciousness Physical Exam Physical Exam: Temp Pulse Resp BP Pulse Ox 36.6 C 87 16 151/90 H 97 09/22/21 11:00 09/22/21 11:00 09/22/21 11:00 09/22/21 11:00 09/22/21 11:00 Constitutional: + ill appearing and + altered mental status Respiratory: normal respiratory effort, lungs clear to auscultation Cardiovascular: Rate/Rhythm: + tachycardic and + irregularly irregular Heart Sounds: no murmur Extremities: no edema Chest (Breasts): Chest: + pacemaker (pacer pocket, clean , dry, intact) Neurologic: Lethargic, not following commands Results & Data (MN) Vital Signs (Past 12 Hours) Vital Signs Temp Pulse Pulse Resp BP Pulse Ox 09/22/21 07:00 36.7 C 93 H 20 154/90 H 95 09/22/21 03:52 36.7 C 99 H 18 143/88 H 97 09/22/21 00:30 36.9 C 102 H 18 149/80 H 96 09/22/21 00:05 36.9 C 102 H 18 149/80 H 96 Laboratory Results INR 2.6 CPK 858--> 430 u/l Troponin <0.015 x 1 on 09/21/21. EKG 09/21/21: AF with RVR of 147 bpm, RBBB. Compared to 04/17/21, RBBB now noted, as compared to ventricular paced rhythm at 70 bpm. Outpatient echo 07/03/21: AF at time of study with controlled ventricular response LVEF 55-59% PASP ~54 mm Hg. peak CW velocity across AV prosthesis 2.3 m/s (stable). Sever LA enlargement
[2021-09-22] MEDS ORDERED: Flu Vaccine-High Dose (Fluzone-HD) PF 65+ 0.7mL SYR IM ONE (09:00)
[2021-09-22] MEDS ORDERED: PNEUMOCOCCAL Polysaccharide Vaccine 25mcg/0.5mL vial/Syr IM ONE (09:00)
[2021-09-22] MEDS: lisinopril 5 MG TAB PO SCH (10:13)
[2021-09-22] MEDS: METOPROLOL SUCC 50MG EXT REL TAB PO SCH (10:13)
--- NOTE | 2021-09-22 12:24 | Electroencephalogram ---
EEG Procedure Note Date of Service September 22, 2021 Start / End Times Start Time: 1142 End Time: [address] Abbasi History 3 days of increasing confusion of uncertain cause with agitation Home Medication List Medication Instructions Recorded Confirmed Type glucosamine-chondroitin 500 mg-400 2 cap PO DAILY cap 05/11/19 09/21/21 History mg capsule warfarin 2.5 mg tablet 2.5 mg PO UD 09/10/19 09/21/21 History metoprolol succinate 100 mg 100 mg PO BID #180 tab 05/24/21 09/21/21 Rx tablet,extended release 24 hr Prevagen 10 mg PO DAILY 09/21/21 09/21/21 History acetaminophen 325 mg tablet 325 mg PO QID PRN 09/21/21 09/21/21 History (Tylenol) cyclobenzaprine 5 mg tablet 5 mg PO TID PRN 09/21/21 09/21/21 History loratadine 10 mg tablet 10 mg PO DAILY 09/21/21 09/21/21 History multivitamin 1 tab PO DAILY 09/21/21 09/21/21 History Inpatient Medication List Diltiazem HCl 125 mg/ Dextrose 125 mls @ 15 mls/hr IV .[facility]8H20[facility]; Protocol Stop: 10/21/21 14:29 Last Admin: 09/22/21 10:36 Dose: 15 mg/hr, 15 mls/hr Documented by: [id number] Cosigned by: [id number] Titration: 09/22/21 10:36 Dose: 15 mg/hr, 15 mls/hr Documented by: [id number] Cosigned by: [id number] Admin: 09/22/21 02:20 Dose: 15 mg/hr, 15 mls/hr Documented by: [id number] Cosigned by: [id number] Titration: 09/22/21 02:20 Dose: 0 mg/hr, 0 mls/hr Documented by: [id number] Cosigned by: [id number] Titration: 09/21/21 22:30 Dose: 15 mg/hr, 15 mls/hr Documented by: [id number] Cosigned by: [id number] Titration: 09/21/21 16:03 Dose: 10 mg/hr, 10 mls/hr Documented by: [id number] Cosigned by: [id number] Admin: 09/21/21 14:56 Dose: 5 mg/hr, 5 mls/hr Documented by: [id number] Cosigned by: [id number] Ceftriaxone Sodium 1,000 mg/ (Dextrose) 50 mls @ 100 mls/hr IV Q24H [facility]IT[facility]; Protocol Stop: 09/23/21 20:59 Last Infusion: 09/21/21 23:45 Dose: 0 mls/hr Documented by: [id number] Admin: 09/21/21 20:51 Dose: 100 mls/hr Documented by: [id number] Lisinopril (Lisinopril 5 Mg Tab) 5 mg PO QAM HITESH Stop: 10/22/21 08:59 Last Admin: 09/22/21 10:13 Dose: Not Given Documented by: [id number] Metoprolol Succinate (Metoprolol Succ 50mg Ext Rel Tab) 100 mg PO BID HITESH Stop: 10/21/21 20:59 Last Admin: 09/22/21 10:13 Dose: Not Given Documented by: [id number] Admin: 09/21/21 20:51 Dose: Not Given Documented by: [id number] Discontinued Medications Diltiazem HCl (Diltiazem Hcl 5 Mg/Ml 5 Ml Vial) 5 mg IV NOW STA Stop: 09/21/21 14:31 Last Admin: 09/21/21 14:39 Dose: 5 mg Documented by: [id number] Cosigned by: [id number] Sodium Chloride (Nss) 500 mls @ 125 mls/hr IV .Q4H HITESH Stop: 10/21/21 15:59 Last Infusion: 09/21/21 18:43 Dose: 0 mls/hr Documented by: [id number] Admin: 09/21/21 16:04 Dose: 125 mls/hr Documented by: [id number] Potassium Chloride (K Adryan / Wtr) 10 meq in 100 mls @ 100 mls/hr IV Q1H STA; Protocol Stop: 09/21/21 19:45 Last Admin: 09/22/21 06:13 Dose: Not Given Documented by: [id number] Potassium Chloride/Sodium Chloride (Normal Saline W/20 Meq Kcl) 20 meq in 1,000 mls @ 80 mls/hr IV .[id number] HITESH Stop: 09/22/21 08:59 Last Infusion: 09/22/21 09:37 Dose: 0 mls/hr Documented by: [id number] Admin: 09/21/21 20:51 Dose: 80 mls/hr Documented by: [id number] Influenza Virus Vaccine (Flu Vaccine-High Dose (Fluzone-Hd) Pf 65+ 0.7ml Syr) 0.7 ml IM .ONCE ONE Stop: 09/22/21 09:01 Last Admin: 09/22/21 09:50 Dose: Not Given Documented by: [id number] Miscellaneous (Stat Iv Infusion Titration Per Protocol) 1 ea N/A NOW STA Stop: 09/21/21 14:31 Last Admin: 09/21/21 15:29 Dose: 1 ea Documented by: [id number] Pneumococcal Polyvalent Vaccine (Pneumococcal Polysaccharide Vaccine 25mcg/0.5ml Vial/Syr) 25 mcg IM .ONCE ONE Stop: 09/22/21 09:01 Last Admin: 09/22/21 09:50 Dose: Not Given Documented by: [id number] Warfarin Sodium (Warfarin Sod 1.25 Mg Tab) 1.25 mg PO ONCE ONE Stop: 09/21/21 20:01 Last Admin: 09/21/21 20:50 Dose: Not Given Documented by: [id number] Description This is a 21 electrode EEG with a single channel dedicated to limited EKG. The electrodes were placed in accordance with the International 10-20 system. This EEG was done as a bedside recording is of reasonable technical quality allowing for a lot of muscle movement artifact. Photic stimulation was performed. Video analysis indicates a fair amount of head rolling activity and muscle movement but these do not significantly impair the interpretation of the recording There is no normal background alpha rhythm but rather an upper theta rhythm of about 8 Hz maximum frequency and 25 V maximum amplitude. This appears symmetrically in the occipital regions. Polymorphic mid to slightly lower frequency theta activity of modest voltage intermixed with occasional waveforms in the delta range is seen centrally and symmetrically. Beta activity seen bifrontally Photic stimulation provokes no important changes and minimal driving response No potentially epileptogenic activity seen Interpretation Mild to moderate nonspecific generalized nonfocal encephalopathy without potentially epileptogenic features Clinical Correlation Pattern is highly nonspecific indicates a nonlateralizing generalized encephalopathy with no ongoing potentially epileptogenic activity and with no recorded nonconvulsive seizure patterns Rahul Huber MD
[2021-09-22] MEDS ORDERED: METOPROLOL TARTRATE 1 MG/ML VIAL IV STA (12:29)
--- NOTE | 2021-09-22 13:01 | Communication Note ---
Date of Service: September 22, 2021 Discussed with patient's POA regarding code status as patient couldnt make decision for herself. POA recommended DNI/DNR.
--- NOTE | 2021-09-22 13:46 | Communication Note ---
Date of Service: September 22, 2021 Neurology has been asked to evaluate Letty Carrera a 76-year-old woman with several days of nonspecific confusion, visit to her primary care physician with a request for an MRI scan (this was not scheduled and according to cardiology is not possible with the type of aortic valve she has in place at the present time) who may have been taking some cyclobenzaprine combined with melatonin at night but he was found yesterday down at home apparently with her car running, laying on the floor and a poorly responsive state with poor inspiratory effort but with no apparent lateralizing weakness This occurs in the setting of chronic stage III renal disease, atrial fibrillation, modest elevation of CPK, slight elevation of the calcium, known aortic valve insufficiency status post 2 replacements, paroxysmal atrial fibrillation followed by cardiology long with valvular disease followed by cardiology, hypertension, acute on chronic diastolic congestive heart failure, dyslipidemia, anemia, history of pacemaker malfunction all outlined on the current chart and details of which are very well enumerated on Dr. Zhao's cardiac consultation. She was brought to the emergency room yesterday CT scan of the brain showed no acute infarction and EEG done this morning revealed a moderate generalized encephalopathy but no localizing features and no seizure activity, laboratory studies showed a slight elevation of white count CPK always outlined in the admission note along with some mild elevation of the BUN and a normal creatinine clearance, the slight elevation of the calcium AST and CPK but no source of infection was found chest x-ray is unremarkable Home medications include Tylenol cyclobenzaprine, glucosamine, loratadine, metoprolol, multivitamins, Privigen and Coumadin Family history social history are all outlined in the chart Review of systems cannot be obtained from the patient Exam reveals blood pressure 151/90 pulse is 102 and slightly irregular she is afebrile with a temperature 36.6 and O2 saturation is 97% on room air She is lying in bed with her neck extended and attempts to flex and forward are met with grimacing and resistance. Head and eyes are deviated to the left and she uses the left arm preferentially grasping at the bedrails. I do not peanut picker a visual threat response on the right but I do on the left and I think there is a subtle right upper motor neuron facial paresis and diminished responsiveness of the right arm to noxious stimulation along with the right leg and I think the right toe signs extensor. Sensory examination cannot be performed and she will not respond to any verbal stimuli will not follow any commands and at most others grunts and groans and grimaces to attempts to flex her neck forward I reviewed imaging reports and studies and a CT scan of the neck shows no significant fracture dislocation and CT of the head shows only some age- appropriate leukoencephalopathy but it was done yesterday Clinically the history and exam suggestive of an acute cerebrovascular event preceded by days of nonspecific confusion and 1 wonders if she was not having sequential embolization to the left hemisphere possibly from atrial fibrillation possibly also from the ipsilateral carotid artery or even the aorta Exam shows what appears to be a left hemispheric lesion with no spontaneous speech, head and eye deviation to the left, preferential use of the left arm and leg, neglect of the right side to some degree and right field cut While at times nonspecific encephalopathies will present with unusual multifocal findings I think in this setting we really need to repeat the CT scan and do CT angiography of the cervical vessels and [place]. An echocardiogram was already being done. She is being empirically treated as an infection although I doubt this is the case Unfortunately she cannot have an MRI scan because of the nature of her heart valve so we will go to be left with CT technology here I have recommended the radiographic studies be done to her attending physician and will check back by computer this afternoon I will check her again tomorrow Rahul Huber MD
[2021-09-22] MEDS: SODIUM CHLORIDE 0.9% 1000ML 1,000 ML IV SCH (14:40)
[2021-09-22] MEDS ORDERED: OPTIRAY 320 125ml IV ONE (15:32)
--- NOTE | 2021-09-22 15:58 | CT Scan Report ---
UNENHANCED CT OF THE BRAIN; CT ANGIOGRAM OF THE BRAIN; CT ANGIOGRAM OF THE NECK CLINICAL HISTORY: Change in mental status. COMPARISON STUDY: CT of the brain dated 09/21/2021. TECHNIQUE: Unenhanced axial CT scan of the brain is performed. Subsequently, following the IV adminis tration of 119 of [address], CT angiogram of the head and neck was performed from the aortic arch t o the vertex. Images are reviewed in the axial, sagittal, and coronal planes. 3-D MIPS images are cre ated and assessed. IV contrast was administered without complication. All measurements were calculate d based on NASCET criteria. A dose lowering technique was utilized adhering to the principles of ALA RA. CT DOSE: 1712.15 mGy.cm FINDINGS: Brain parenchyma: There is age-related involutional change noting moderate subcortical and periventri cular microangiopathic disease. A small focus of left parietal encephalomalacia is consistent with a remote infarct. There is no hemorrhage, mass effect, or evidence of acute territorial ischemia by CT criteria. There is no evidence of enhancing mass lesion on the angiogram phase images. The ventricles , sulci, and cisterns are prominent secondary to involutional change. Enriquez-white matter differentiati on is preserved. No extra-axial fluid collection is seen. Thoracic aorta: There is atherosclerotic calcification of the thoracic aorta. Visualized portions of the thoracic aorta are normal in caliber. The aortic arch demonstrates standard 3-vessel anatomy. Right carotid arterial system: The right common carotid artery is widely patent, as are the right int ernal and external carotid arteries. Calcified plaque is noted in the carotid bulb. The distal international logistics analyst al carotid artery demonstrates minimal Left carotid arterial system: The left common carotid artery is widely patent, as are the left international logistics analyst al and external carotid arteries. Calcified plaque is noted in the carotid bulb. The distal internal carotid demonstrates a slightly beaded appearance. Vertebral arteries: The vertebral arteries are widely patent bilaterally noting mild left-sided domin ance. Subclavian arteries: Widely patent bilaterally. Atherosclerotic plaque is noted in the left subclavia n artery. The vertebral arteries demonstrate a beaded appearance bilaterally, left greater than right . Intracranial vasculature: There is atherosclerotic calcification of the cavernous carotid and vertebr al arteries. The internal carotid arteries are patent at the skull base, as are the anterior and midd le cerebral arteries bilaterally. The vertebrobasilar system and posterior cerebral arteries are wide ly patent. The vertebral arteries demonstrate mild left-sided dominance. The basilar demonstrates a s lightly beaded appearance. There is no aneurysm, high-grade stenosis, or focal vessel cut off seen th roughout the intracranial circulation. Jugular veins: Patent bilaterally. Dural sinuses: The left transverse sinus is diminutive with small collateral vessels. This is almost certainly chronic and of doubtful significance. The dural sinuses are otherwise widely patent. Upper chest: Pacemaker leads are noted at the left thoracic inlet. Partially visualized upper lobe teresa ng parenchyma appears clear. Soft tissues: The visualized pharyngeal soft tissues are normal in appearance noting angiographic pha se technique. The oropharyngeal airway appears widely patent. The salivary and thyroid glands are nor mal in appearance. No cervical lymphadenopathy is seen. Skeletal structures: The skeletal structures are osteopenic. The calvarium appears intact. The cervic al spine is maintained noting multilevel spondylosis. No lytic or blastic lesion is seen. Midline mian rnotomy wires are noted. Orbits: The bony orbits are intact. Orbital contents are normal as visualized noting bilateral ocular lens implants. Sinuses and mastoids: The paranasal sinuses are clear. The mastoid air cells are well pneumatized. IMPRESSION: 1. There is no hemorrhage, mass effect, or evidence of acute territorial ischemia by CT criteria. 2. The distal internal carotid arteries, the vertebral arteries, and the basilar artery demonstrate a mildly beaded appearance. This is nonspecific but can be seen in the setting of fibromuscular dyspla ludmila. 3. Otherwise unremarkable CT angiograms of the head and neck. ACT 112: Negative or not required by law. Electronically signed by: Donal Gonzalez M.D. 09/22/2021 3:57 PM
[2021-09-22] MEDS ORDERED: WARFARIN SOD 2.5 MG TAB PO SCH (16:00)
--- NOTE | 2021-09-22 16:31 | Hospitalist Progress Note ---
Date of Service September 22, 2021 Assessment & Plan (1) Acute alteration in mental status: Plan: Altered mental status ? Acute metabolic encephalopathy secondary to medications (cyclobenzaprine, Melatonin) -CT head, CTA Head/Neck:There is no hemorrhage, mass effect, or evidence of acute territorial ischemia by CT criteria. The distal internal carotid arteries, the vertebral arteries, and the basilar artery demonstrate a mildly beaded appearance. This is nonspecific but can be seen in the setting of fibromuscular dysplasia. Otherwise unremarkable CT angiograms of the head and neck. --EEG:Mild to moderate nonspecific generalized nonfocal encephalopathy without potentially epileptogenic features -Cannot obtain MRI due to pacemaker incompatibility -Negative toxicology screen -Hold any sedating meds, avoid narcotics -No obvious signs of infection Follow-up cultures Empirically on Rocephin Appreciate neurology input Continue gentle IV fluids N.p.o. for now Decreased urine output Secondary to dehydration Bladder scan as needed Continue IV fluids (2) Atrial fibrillation with RVR: Plan: Echo reviewed Hold oral metoprolol, lisinopril and Coumadin On IV diltiazem IV metoprolol as needed Monitor INR: 2.6 We will consider IV heparin if INR less than 2 Appreciate cardiology input (3) Elevated CPK: Plan: -CPK levels better Continue IV fluids (4) Hypercalcemia: Plan: Calcium levels near normal Elevated PTH as an outpatient Other work-up as outpatient (5) Anticoagulated on Coumadin: Plan: INR 2.6 Hold Coumadin for now (6) HTN (hypertension): Plan: - Hold PO meds: Metoprolol, lisinopril for now (7) CKD (chronic kidney disease) stage 3, GFR 30-59 ml/min: Plan: Cr at baseline Monitor Plan: DVT Px: INR therapeutic Code Status Full Code Admission and Anticipated Discharge Date Admission Date: September 21, 2021 Subjective Patient is seen and examined at bedside Unable to obtain any history No distress on exam Patient continues to be confused Poor urine output Discussed with patient's son over the phone Repeat imaging showed no acute CVA Review of Systems Review of Systems: Other Physical Exam Physical Exam: Physical Exam: Vitals signs as noted above General Appearance:Moderately built and nourished, Ill appearing, AMS Head: normocephalic, Atraumatic Eyes: normal inspection, EOMI Neck: supple, Trachea midline Respiratory/Chest: Normal breath sounds, CTA Cardiovascular: Irregularly Irregular, + Tachycardia, No murmur Abdomen/GI:Soft, Non tender, Bowel sounds present Extremities/Musculoskeletal:normal inspection, no edema Neurologic/Psych:Alert, awake, Non verbal, Unable to perform complete neuro exam Skin: normal color, warm Results & Data Results & Data (MN) Vital Signs (Past 12 Hours) Vital Signs Temp Pulse Pulse Resp BP BP Pulse Ox 09/22/21 13:06 102 H 151/90 H 09/22/21 11:00 36.6 C 87 16 151/90 H 97 09/22/21 07:00 36.7 C 93 H 20 154/90 H 95 Laboratory Results Short CBC 09/22/21 Range/Units 05:55 WBC 12.20 H (4.8-10.8) K/uL Hgb 15.1 (12.0-16.0) g/dL Hct 45.8 (37-47) % Plt Count 268 (130-400) K/uL BMP 09/22/21 05:55 Sodium 138 Potassium 4.1 D Chloride 106 Carbon Dioxide 26 BUN 23 H Creatinine 0.97 Glucose 114 H Calcium 10.2 H Cardiac Enzymes 09/22/21 Range/Units 05:55 Total Creatine Kinase 430 H (26-192) U/L (1) HTN (hypertension) Hypertension type: unspecified Qualified Code(s): I10 - Essential (primary) h ypertension
[2021-09-22] MEDS ORDERED: levETIRAcetam 1,000 MG in 0.9 % SODIUM CHLORIDE 100 ML IV ONE (17:00)
[2021-09-22] MEDS: METOPROLOL TARTRATE 1 MG/ML VIAL IV SCH ×2 (17:22→23:23)
[2021-09-22] MEDS: cefTRIAXone SODIUM 1,000 MG in DEXTROSE 5% 50 ML IV SCH (21:00)
[2021-09-23] MEDS: SODIUM CHLORIDE 0.9% 1000ML 1,000 ML IV SCH (03:34)
[2021-09-23] MEDS: dilTIAZem HCL 125 MG in DEXTROSE 5% 100 ML IV SCH ×2 (03:41→12:51)
[2021-09-23] MEDS: METOPROLOL TARTRATE 1 MG/ML VIAL IV SCH ×3 (06:29→18:10)
[2021-09-23 07:48] LABS: Hematocrit (blood only) 41.7 % (37-47); Hemoglobin 13.5 g/dL (12.0-16.0); Mean Corpuscular Hemoglobin 28.4 pg (25-34); Mean Corpuscular Hgb Conc 32.4 g/dL (32-36); Mean Corpuscular Volume 87.8 fL (80-100); Platelet Count 247 K/uL (130-400); RDW Standard Deviation 47.7 fL (36.4-46.3); Red Blood Count 4.75 M/uL (4.2-5.4); White Blood Count 9.48 K/uL (4.8-10.8)
[2021-09-23 07:52] LABS: INR 2.5 (0.9-1.1); Prothrombin Time 23.5 Seconds (9.0-12.0)
[2021-09-23 08:10] LABS: BUN Creatinine Ratio 29.2 (10-20); Calcium 9.5 mg/dl (8.5-10.1); Creatinine Clr Calc Pharmacy 61.2 ml/min; Est GFR (African American) 82.4 ml/min; Est GFR (Non-African American) 71.1 ml/min; Magnesium 2.2 mg/dl (1.8-2.4); Potassium 3.7 mmol/L (3.5-5.1)
[2021-09-23] MEDS: levETIRAcetam 500 MG in 0.9 % SODIUM CHLORIDE 100 ML IV SCH ×2 (09:47→23:32)
--- NOTE | 2021-09-23 09:53 | Cardiology Progress Note ---
Date of Service September 23, 2021 Assessment & Plan (1) Acute encephalopathy: (2) CKD (chronic kidney disease) stage 3, GFR 30-59 ml/min: (3) Atrial fibrillation with RVR: (4) Anticoagulated on Coumadin: (5) S/P TAVR (transcatheter aortic valve replacement): Plan: ED patient was admitted with encephalopathy but possibly due to urosepsis. She is a little bit more alert today but still not cognitively there yet. She has a complex past cardiac history as previously outlined. At this point she is hemodynamically stable. I would continue IV medications through today and then restart potentially her oral medications tomorrow including her warfarin. Admission and Anticipated Discharge Date Admission Date: September 21, 2021 Subjective The patient according the nursing is a little bit more alert today but has waxing and waning orientation. Review of Systems Review of Systems: Not obtainable Physical Exam Physical Exam: General: no acute distress and stated age Head: normocephalic, no masses, lesions, tenderness or abnormalities Eyes: conjunctiva are pink and non-injected, sclera clear Neck: supple, no adenopathy, no bruits, normal jugular venous pulse, no hepatojugular reflux Chest: normal shape and normal respiratory effort Lungs: clear to auscultation and percussion Cardiac Exam: - irregular rate & rhythm, no murmurs gallops or rubs - normal S1, normal S2 Pulses: 2(+) throughout Abdomen: abdomen soft, non-tender, no abnormal masses and no hepatosplenomegaly Musculoskeletal: no gait disturbance, no joint inflammation, no deforming arthritis Extremities: no edema and no cyanosis Neuro: grossly normal exam Results & Data ([facility]) Vital Signs (Past 12 Hours) Vital Signs Temp Pulse Pulse Pulse Resp BP BP 09/23/21 07:27 36.9 C 74 17 09/23/21 06:29 90 141/76 H 09/23/21 06:27 90 141/76 H 09/23/21 03:00 36.7 C 79 18 113/64 09/22/21 23:23 86 128/87 09/22/21 23:08 36.7 C 86 17 09/22/21 22:42 74 BP Pulse Ox 09/23/21 07:27 129/77 98 09/23/21 06:29 09/23/21 06:27 09/23/21 03:00 95 12/31/21 23:23 09/22/21 23:08 128/87 95 09/22/21 22:42 Laboratory Results Laboratory Results - last 24 hr 09/23/21 09/23/21 09/23/21 07:18 07:18 07:18 WBC 9.48 RBC 4.75 Hgb 13.5 Hct 41.7 MCV 87.8 MCH 28.4 MCHC 32.4 RDW Std Deviation 47.7 H RDW Coeff of Bob 15.0 H Plt Count 247 MPV 10.0 PT 23.5 H INR 2.5 H Sodium 142 Potassium 3.7 Chloride 111 H Carbon Dioxide 26 Anion Gap 5.0 BUN 23 H Creatinine 0.80 Est Cr Clr Drug Dosing 61.2 Est GFR ( Amer) 82.4 Est GFR (Non-Af Amer) 71.1 BUN/Creatinine Ratio 29.2 H Glucose 97 Calcium 9.5 Magnesium 2.2 Medications Administered Current Inpatient Medications Acetaminophen (Acetaminophen 325 Mg Tab) 650 mg PO Q4H PRN PRN Reason: Pain or Fever Stop: 10/21/21 19:58 Diltiazem HCl 125 mg/ Dextrose 125 mls @ 15 mls/hr IV .[id number] [facility]; Protocol Stop: 10/21/21 14:29 Last Admin: 09/23/21 03:41 Dose: 15 mg/hr, 15 mls/hr Documented by: Ceftriaxone Sodium 1,000 mg/ (Dextrose) 50 mls @ 100 mls/hr IV Q24H [facility]; Protocol Stop: 09/23/21 20:59 Last Infusion: 09/22/21 21:52 Dose: Infused Documented by: Sodium Chloride (Nss 1000ml) 1,000 mls @ 80 mls/hr IV .[id number] [facility] Stop: 09/23/21 15:14 Last Admin: 09/23/21 03:34 Dose: 80 mls/hr Documented by: Levetiracetam 500 mg/ Sodium (Chloride) 105 mls @ 420 mls/hr IV Q12H [facility] Stop: 10/23/21 08:59 Last Admin: 09/23/21 09:47 Dose: 420 mls/hr Documented by: Labetalol HCl (Labetalol Hcl Iv 5 Mg/Ml 20ml) 10 mg IV Q8H PRN PRN Reason: Hypertension Stop: 10/21/21 19:58 Lisinopril (Lisinopril 5 Mg Tab) 5 mg PO QAM [facility] Stop: 10/22/21 08:59 Last Admin: 09/22/21 10:13 Dose: Not Given Documented by: Metoprolol Succinate (Metoprolol Succ 50mg Ext Rel Tab) 100 mg PO BID [facility] Stop: 10/21/21 20:59 Last Admin: 09/22/21 10:13 Dose: Not Given Documented by: Metoprolol Tartrate (Metoprolol Tartrate 1 Mg/Ml Vial) 5 mg IV Q6 [facility] Stop: 10/22/21 17:59 Last Admin: 09/23/21 06:29 Dose: 5 mg Documented by:
--- NOTE | 2021-09-23 09:59 | Electrocardiogram Report ---
Test Reason : Blood Pressure : / mmHG Vent. Rate : 147 BPM Atrial Rate : 110 BPM P-R Int : 192 ms QRS Dur : 172 ms QT Int : 372 ms P-R-T Axes : 000 204 055 degrees QTc Int : 582 ms Poor data quality, interpretation may be adversely affected Atrial fibrillation Right bundle branch block Abnormal ECG When compared with ECG of 17-APR-2021 09:43, HR has increased Pacing is no longer evident Confirmed by Alpesh Benz ([id number]) on 09/23/2021 9:59:04 AM Referred By: REFERRED SELF Confirmed By:Alpesh Benz
--- NOTE | 2021-09-23 14:13 | Communication Note ---
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 The right sided hemiparesis noticed yesterday is no longer evident. There is no head or eye deviation to the left there is no field cut or neglect and the left hemispheric signs that were evident on my exam have essentially cleared with the possible exception of the language disturbance manifested by confusion and disorientation and some difficulty with repetition and naming Repeat CT scan and CTA etc. 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 This may have been a post ictal phenomenon and the neurologic deficits I saw yesterday could certainly have been a manifestation of a "Aaron's" paralysis type of picture. Unfortunately she was taking melatonin and cyclobenzaprine which in combination may well produce confusion and disorientation but it sounds like she had a syncopal event and was found on the floor and diminished responsive state so I am still suspicious about a seizure potentially emanating from the left hemisphere There is no sign of an infectious illness and the neck stiffness and we noticed yesterday is virtually gone I would like to observe for 1 more day and certainly her current status would not permit discharge if she is quite confused does not know its New 's Day insists that she is in a different town cannot tell me that she lives in [place] and clearly would not be capable of going home or being discharged any facility quite yet I may consider another inpatient EEG to see if we can find an irritable focus over the left hemisphere but actually an ambulatory study on an outpatient basis may be the best If she has unequivocal seizure activity while here in the hospital obviously then she needs to be loaded with Keppra and started on 500 mg twice a day but at this point I am reluctant to commit her to anticonvulsants as the cyclobenzaprine/melatonin interaction could have produced a similar picture and any encephalopathy in a patient with a prior CVA can manifest itself by accentuation of the prior neurologic deficits due to the old vascular event. In this case then the left hemispheric findings may simply have been due to a global encephalopathy with focal features brought out by the pre-existing structural lesion rather than having to postulate a seizure I will check back with her tomorrow Rahul Huber MD
[2021-09-23] MEDS ORDERED: WARFARIN SOD 1.25 MG TAB PO SCH (16:00)
--- NOTE | 2021-09-23 18:51 | Hospitalist Progress Note ---
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 The distal internal carotid arteries, the vertebral arteries, and the basilar artery demonstrate a mildly beaded appearance. This is nonspecific but can be seen in the setting of fibromuscular dysplasia. Otherwise unremarkable CT angiograms of the head and neck. --EEG:Mild to moderate nonspecific generalized nonfocal encephalopathy without potentially epileptogenic features -Cannot obtain MRI due to pacemaker incompatibility -Negative toxicology screen -Hold any sedating meds, avoid narcotics -No obvious signs of infection Blood, Urine Culture Negative Received empiric Rocephin Appreciate neurology input Started on Keppra 500 mg twice daily Decreased urine output Secondary to dehydration Bladder scan as needed Received IV fluids (2) Atrial fibrillation with RVR: Plan: Echo reviewed Hold oral metoprolol, lisinopril and Coumadin On IV diltiazem IV metoprolol as needed Monitor INR: 2.5 We will consider IV heparin if INR less than 2 Appreciate cardiology input Clear transition to p.o. medications tomorrow (3) Elevated CPK: Plan: -CPK levels better Received IV fluids (4) Hypercalcemia: Plan: Calcium levels near normal Elevated PTH as an outpatient Other work-up as outpatient (5) Anticoagulated on Coumadin: Plan: INR 2.5 Plan to resume Coumadin tomorrow (6) HTN (hypertension): Plan: - Hold PO meds: Metoprolol, lisinopril for now (7) CKD (chronic kidney disease) stage 3, GFR 30-59 ml/min: Plan: Cr at baseline Monitor Plan: DVT Px: INR therapeutic Code Status Full Code Admission and Anticipated Discharge Date Admission Date: September 21, 2021 Subjective Patient is seen and examined at bedside Mental status much improved today Intermittently confused and not back to baseline as per family Updated patient's family at bedside Patient follows commands Denies any chest pain, shortness of breath, dizziness Patient could not recollect events prior to admission Review of Systems Review of Systems: All systems reviewed & are unremarkable except as noted in Subjective Physical Exam Physical Exam: Physical Exam: Vitals signs as noted above General Appearance:Moderately built and nourished, Ill appearing, AMS Head: normocephalic, Atraumatic Eyes: normal inspection, EOMI Neck: supple, Trachea midline Respiratory/Chest: Normal breath sounds, CTA Cardiovascular: Irregularly Irregular, No murmur Abdomen/GI:Soft, Non tender, Bowel sounds present Extremities/Musculoskeletal:normal inspection, no edema Neurologic/Psych:Alert, awake, Non verbal, Unable to perform complete neuro exam Skin: normal color, warm Results & Data Results & Data ([facility]) Vital Signs (Past 12 Hours) Vital Signs Temp Pulse Pulse Resp BP BP BP 09/23/21 18:10 72 131/77 09/23/21 15:18 36.5 C 72 19 131/77 09/23/21 12:51 79 116/79 09/23/21 12:02 36.4 C L 79 17 116/79 09/23/21 07:27 36.9 C 74 17 129/77 Pulse Ox 09/23/21 18:10 09/23/21 15:18 96 09/23/21 12:51 09/23/21 12:02 96 09/23/21 07:27 98 Laboratory Results Short CBC 09/23/21 Range/Units 07:18 WBC 9.48 (4.8-10.8) K/uL Hgb 13.5 (12.0-16.0) g/dL Hct 41.7 (37-47) % Plt Count 247 (130-400) K/uL BMP 09/23/21 07:18 Sodium 142 Potassium 3.7 Chloride 111 H Carbon Dioxide 26 BUN 23 H Creatinine 0.80 Glucose 97 Calcium 9.5 (1) HTN (hypertension) Hypertension type: unspecified Qualified Code(s): I10 - Essential (primary) hypertension
[2021-09-24] MEDS: dilTIAZem HCL 125 MG in DEXTROSE 5% 100 ML IV SCH ×2 (00:26→10:34)
[2021-09-24] MEDS: METOPROLOL TARTRATE 1 MG/ML VIAL IV SCH ×2 (02:15→08:36)
[2021-09-24] MEDS ORDERED: OLANZapine 10 MG/2.1 ML SDV IM PRN (05:45)
[2021-09-24 06:59] LABS: Hematocrit (blood only) 39.6 % (37-47); Hemoglobin 12.6 g/dL (12.0-16.0); Mean Corpuscular Hemoglobin 27.9 pg (25-34); Mean Corpuscular Hgb Conc 31.8 g/dL (32-36); Mean Corpuscular Volume 87.8 fL (80-100); Mean Platelet Volume 9.9 fL (7.4-10.4); Platelet Count 244 K/uL (130-400); RDW Standard Deviation 48.4 fL (36.4-46.3); Red Blood Count 4.51 M/uL (4.2-5.4)
[2021-09-24 07:11] LABS: INR 1.9 (0.9-1.1); Prothrombin Time 18.4 Seconds (9.0-12.0)
[2021-09-24 07:25] LABS: BUN Creatinine Ratio 25.8 (10-20); Calcium 9.5 mg/dl (8.5-10.1); Creatinine Clr Calc Pharmacy 63.2 ml/min; Est GFR (African American) 86.3 ml/min; Est GFR (Non-African American) 74.5 ml/min; Potassium 3.6 mmol/L (3.5-5.1)
[2021-09-24] MEDS: levETIRAcetam 500 MG in 0.9 % SODIUM CHLORIDE 100 ML IV SCH ×2 (08:34→20:31)
[2021-09-24] MEDS ORDERED: VANCOMYCIN CONSULT ACTIVE PRN (09:43)
[2021-09-24] MEDS ORDERED: VANCOMYCIN HCL 2,000 MG in SODIUM CHLORIDE 0.9% 500 ML IV ONE (10:00)
--- NOTE | 2021-09-24 10:22 | Cardiology Progress Note ---
Date of Service September 24, 2021 Assessment & Plan (1) Acute encephalopathy: (2) CKD (chronic kidney disease) stage 3, GFR 30-59 ml/min: (3) Atrial fibrillation with RVR: (4) Anticoagulated on Coumadin: (5) S/P TAVR (transcatheter aortic valve replacement): Plan: The patient pulled out her IV again this morning. There is no IV access currently. Fortunately, she is starting to take some p.o. medications. I would stop the diltiazem drip. I restarted her metoprolol XL 50 mg daily. She was taking 100 mg daily at home. I do not believe at this time that she is going to be a candidate for long-term anticoagulation. I discontinued the warfarin. I will start her on aspirin 81 mg daily. Admission and Anticipated Discharge Date Admission Date: September 21, 2021 Subjective The patient is confused today but he is able to take oral medications. Review of Systems Review of Systems: Not obtainable Physical Exam Physical Exam: General: no acute distress and stated age Head: normocephalic, no masses, lesions, tenderness or abnormalities Eyes: conjunctiva are pink and non-injected, sclera clear Neck: supple, no adenopathy, no bruits, normal jugular venous pulse, no hepatojugular reflux Chest: normal shape and normal respiratory effort Lungs: clear to auscultation and percussion Cardiac Exam: - irregular rate & rhythm, no murmurs gallops or rubs - normal S1, normal S2 Pulses: 2(+) throughout Abdomen: abdomen soft, non-tender, no abnormal masses and no hepatosplenomegaly Musculoskeletal: no gait disturbance, no joint inflammation, no deforming arthritis Extremities: no edema and no cyanosis Neuro: grossly normal exam Results & Data ([facility]) Vital Signs (Past 12 Hours) Vital Signs Temp Pulse Pulse Resp BP BP BP 09/24/21 08:36 95 H 146/95 H 09/24/21 07:41 36.8 C 95 H 16 146/95 H 09/24/21 04:36 37.2 C 77 18 128/76 09/24/21 02:15 76 118/75 09/24/21 02:12 75 09/23/21 22:32 37.1 C 79 17 114/72 Pulse Ox 09/24/21 08:36 09/24/21 07:41 93 09/24/21 04:36 92 09/24/21 02:15 09/24/21 02:12 09/23/21 22:32 92 Laboratory Results Laboratory Results - last 24 hr 09/24/21 09/24/21 09/24/21 06:38 06:38 06:38 WBC 10.00 RBC 4.51 Hgb 12.6 Hct 39.6 MCV 87.8 MCH 27.9 MCHC 31.8 L RDW Std Deviation 48.4 H RDW Coeff of Bob 15.0 H Plt Count 244 MPV 9.9 PT 18.4 H INR 1.9 H Sodium 142 Potassium 3.6 Chloride 111 H Carbon Dioxide 26 Anion Gap 5.0 BUN 20 H Creatinine 0.77 Est Cr Clr Drug Dosing 63.2 Est GFR ( Amer) 86.3 Est GFR (Non-Af Amer) 74.5 BUN/Creatinine Ratio 25.8 H Glucose 99 Calcium 9.5 Medications Administered Current Inpatient Medications Acetaminophen (Acetaminophen 325 Mg Tab) 650 mg PO Q4H PRN PRN Reason: Pain or Fever Stop: 10/21/21 19:58 Heparin Sodium (Porcine) (Heparin Sod 5,000 Unit/0.5 Ml Vial) 5,000 units SQ Q12 [facility] Stop: 10/24/21 20:59 Levetiracetam 500 mg/ Sodium (Chloride) 105 mls @ 420 mls/hr IV Q12H [facility] Stop: 10/23/21 08:59 Last Infusion: 09/24/21 08:49 Dose: Infused Documented by: Vancomycin HCl 2,000 mg/ (Sodium Chloride) 540 mls @ 200 mls/hr IV NOW ONE Stop: 09/24/21 12:41 Labetalol HCl (Labetalol Hcl Iv 5 Mg/Ml 20ml) 10 mg IV Q8H PRN PRN Reason: Hypertension Stop: 10/21/21 19:58 Lisinopril (Lisinopril 5 Mg Tab) 5 mg PO QAM [facility] Stop: 10/22/21 08:59 Last Admin: 09/22/21 10:13 Dose: Not Given Documented by: Metoprolol Succinate (Metoprolol Succ 50mg Ext Rel Tab) 50 mg PO QAM [facility] Stop: 10/24/21 10:14 Metoprolol Tartrate (Metoprolol Tartrate 1 Mg/Ml Vial) 5 mg IV Q6 [facility] Stop: 10/22/21 17:59 Last Admin: 09/24/21 08:36 Dose: 5 mg Documented by: Miscellaneous Information (Vancomycin Consult Active) 1 ea N/A UD PRN PRN Reason: Consult Stop: 10/24/21 09:42 Olanzapine (Olanzapine 10 Mg/2.1 Ml Sdv) 2.5 mg IM Q4H PRN PRN Reason: Anxiety/Agitation Stop: 10/24/21 05:44
[2021-09-24] MEDS ORDERED: lisinopril 5 MG TAB PO ONE (11:00)
[2021-09-24] MEDS: ASPIRIN 81 MG ECTAB PO SCH (11:48)
[2021-09-24] MEDS: METOPROLOL SUCC 50MG EXT REL TAB PO SCH (11:48)
--- NOTE | 2021-09-24 12:22 | Pharmacy Report ---
Pharmacy Vanc AUC Short Note - Date of Service September 24, 2021 - Assessment & Plan Assessment 76 year old F receiving vancomycin for treatment of bacteremia. Pertinent microbiologic data includes: blood culture growing Gram positive cocci in anaerobic bottle. Day # 1 of antimicrobial therapy. Plan Vancomycin * AUC/AGGIE is the preferred PK/PD target for vancomycin * AUC guided dosing is effective and associated with decreased risk of nephrotoxicity compared to traditional trough targets * vancomycin 1000 mg IV q12 is predicted to achieve target AUC/AGGIE of 629 mg/L.hr and may be associated with a 19 % risk of nephrotoxicity. HOWEVER, this is expected to occur after 7 doses. Will therefore check level early and reduce dose accordingly. Aggressive dosing utilized at first due to indication. * Trough ordered for: 09/26/21 Pharmacy will continue to follow and will adjust dose/frequency as necessary. Thank you.
--- NOTE | 2021-09-24 13:29 | Communication Note ---
Date of Service: September 24, 2021 Letty continues to be confused is little more cooperative but still has hallucinations and is really disoriented as to location and date time etc. She no longer has any left hemispheric focal signs in the speech pattern really does not have any aphasic qualities to it Dr. Abbasi obtain a history from the family that I was unaware of including generalized shaking and jerking movements when they found her down on the ground and urinary incontinence so the concept that this was a seizure with prolonged postictal confusion becomes a little more supported by history and the decision to start Keppra made by Dr. Abbasi appears to have been correct We will continue the 500 mg Keppra twice a day and check an EEG in the morning. Some features of the current encephalopathy including the hallucinations are little atypical for a post ictal state and have some features of a withdrawal issue but I do not see evidence that she is on any medications that would produce this and there is no history for excessive ethanol use Rahul Huber MD
[2021-09-24] MEDS ORDERED: WARFARIN SOD 3 MG TAB PO SCH (16:00)
--- NOTE | 2021-09-24 19:52 | Hospitalist Progress Note ---
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 The distal internal carotid arteries, the vertebral arteries, and the basilar artery demonstrate a mildly beaded appearance. This is nonspecific but can be seen in the setting of fibromuscular dysplasia. Otherwise unremarkable CT angiograms of the head and neck. --EEG:Mild to moderate nonspecific generalized nonfocal encephalopathy without potentially epileptogenic features -Cannot obtain MRI due to pacemaker incompatibility -Negative toxicology screen -Hold any sedating meds, avoid narcotics Urine Culture Negative Received empiric Rocephin Appreciate neurology input On Keppra 500 mg twice daily Plan to repeat EEG tomorrow Consider psychiatry evaluation if needed for hallucinations Rule out Bacteremia 1/2 blood Cx growing gram-positive cocci We will repeat blood cultures Likely contamination Empirically started on vancomycin Decreased urine output Secondary to dehydration Bladder scan as needed Received IV fluids (2) Atrial fibrillation with RVR: Plan: Echo reviewed Hold oral metoprolol, lisinopril and Coumadin On IV diltiazem>>> transition to 50 mg daily IV metoprolol as needed Appreciate cardiology input Patient thought to be not a candidate for long-term anticoagulation Coumadin discontinued Started on aspirin 81 mg daily as per Cardiology (3) Elevated CPK: Plan: -CPK levels better Received IV fluids (4) Hypercalcemia: Plan: Calcium levels near normal Elevated PTH as an outpatient Other work-up as outpatient (5) Anticoagulated on Coumadin: Plan: Previously on Coumadin (6) HTN (hypertension): Plan: -Metoprolol, lisinopril resumed (7) CKD (chronic kidney disease) stage 3, GFR 30-59 ml/min: Plan: Cr at baseline Monitor Plan: DVT Px: Heparin SQ Code Status DNI/DNR as per POA Admission and Anticipated Discharge Date Admission Date: September 21, 2021 Subjective Patient is seen and examined at bedside Intermittently confused and agitated IV diltiazem transition to p.o. meds Seems to be having hallucinations Denies any chest pain, shortness of breath, dizziness Review of Systems Review of Systems: All systems reviewed & are unremarkable except as noted in Subjective Physical Exam Physical Exam: Physical Exam: Vitals signs as noted above General Appearance:Moderately built and nourished, Ill appearing, AMS Head: normocephalic, Atraumatic Eyes: normal inspection, EOMI Neck: supple, Trachea midline Respiratory/Chest: Normal breath sounds, CTA Cardiovascular: Irregularly Irregular, No murmur Abdomen/GI:Soft, Non tender, Bowel sounds present Extremities/Musculoskeletal:normal inspection, no edema Neurologic/Psych:Alert, awake, Non verbal, Unable to perform complete neuro exam Skin: normal color, warm Results & Data Results & Data ([facility]) Vital Signs (Past 12 Hours) Vital Signs Temp Pulse Pulse Resp BP BP BP 09/24/21 19:30 36.6 C 67 18 159/97 H 09/24/21 14:55 36.6 C 69 18 154/86 H 09/24/21 11:33 36.5 C 88 18 148/77 H 09/24/21 11:14 36.7 C 72 19 125/66 09/24/21 08:36 95 H 146/95 H Pulse Ox 09/24/21 19:30 93 09/24/21 14:55 95 09/24/21 11:33 96 09/24/21 11:14 98 09/24/21 08:36 Laboratory Results Short CBC 09/24/21 Range/Units 06:38 WBC 10.00 (4.8-10.8) K/uL Hgb 12.6 (12.0-16.0) g/dL Hct 39.6 (37-47) % Plt Count 244 (130-400) K/uL BMP 09/24/21 06:38 Sodium 142 Potassium 3.6 Chloride 111 H Carbon Dioxide 26 BUN 20 H Creatinine 0.77 Glucose 99 Calcium 9.5 (1) HTN (hypertension) Hypertension type: unspecified Qualified Code(s): I10 - Essential (primary) hypertension
[2021-09-24] MEDS: HEPARIN SOD 5,000 UNIT/0.5 ML VIAL SQ SCH (20:32)
[2021-09-25] MEDS: VANCOMYCIN HCL 1,000 MG in SODIUM CHLORIDE 0.9% 250 ML IV SCH ×3 (00:11→22:00)
[2021-09-25 07:53] LABS: INR 1.5 (0.9-1.1); Prothrombin Time 14.4 Seconds (9.0-12.0)
[2021-09-25] MEDS: lisinopril 5 MG TAB PO SCH (08:55)
[2021-09-25] MEDS: METOPROLOL SUCC 50MG EXT REL TAB PO SCH (08:55)
[2021-09-25] MEDS: ASPIRIN 81 MG ECTAB PO SCH (08:56)
[2021-09-25] MEDS: HEPARIN SOD 5,000 UNIT/0.5 ML VIAL SQ SCH (08:56)
[2021-09-25] MEDS ORDERED: lisinopril 5 MG TAB PO SCH (09:00)
[2021-09-25] MEDS: levETIRAcetam 500 MG in 0.9 % SODIUM CHLORIDE 100 ML IV SCH (09:05)
[2021-09-25 09:30] LABS: BUN Creatinine Ratio 15.7 (10-20); Calcium 9.8 mg/dl (8.5-10.1); Creatinine Clr Calc Pharmacy 68.1 ml/min; Est GFR (African American) 93.6 ml/min; Est GFR (Non-African American) 80.8 ml/min; Potassium 3.4 mmol/L (3.5-5.1)
[2021-09-25] MEDS ORDERED: POTASSIUM CHLORIDE CRTAB 20 MEQ TABCR PO ONE (09:44)
--- NOTE | 2021-09-25 10:38 | Cardiology Progress Note ---
Date of Service September 25, 2021 Assessment & Plan (1) Acute encephalopathy: (2) Atrial fibrillation with RVR: (3) Anticoagulated on Coumadin: (4) S/P TAVR (transcatheter aortic valve replacement): (5) CKD (chronic kidney disease) stage 3, GFR 30-59 ml/min: Plan: (1) Acute encephalopathy: -Etiology still uncertain, patient tells me she drinks an occasional glass of wine, but certainly does not endorse daily alcohol use. -She is afebrile, 1/ blood cultures notable for gram-positive cocci (perhaps contaminant) repeat cultures performed 09/24/2021, without growth thus far. Agree with empiric coverage with vancomycin pending culture results. -Her [employer] permanent pacemaker leads date back to 2006, with generator change in 2013, and her device therefore is not MRI compatible. CT studies x2 without acute evidence of stroke or focal stenosis in the carotid or cerebral vasculature. -As noted, seizure still a possibility, but I think that stroke also needs to be considered. -Persistent atrial fibrillation noted recently in a patient with multiple risk factors for cardioembolic stroke, INR was therapeutic on presentation, and historically she performs self INR testing and Coumadin management at home. -Continue supportive care, avoid sedatives, repeat CT. (2) Atrial fibrillation with RVR: (3) History of prior anticoagulation with Coumadin: (4) S/P TAVR (transcatheter aortic valve replacement): -Telemetry with findings of ongoing atrial fibrillation with ventricular rates in the range of 100 to 110 bpm. -She has tolerated oral metoprolol yesterday and again today. -Due to persistent, perhaps now permanent atrial fibrillation, recent outpatient EP consultation had recommended rate control and anticoagulation strategy, this was deemed that maintenance of sinus rhythm would likely not be achieved. -For the most recent AHA/ACC treatment guidelines for patients with valvular heart disease, in a patient who requires anticoagulation for stroke prophylaxis in the setting of atrial fibrillation, and has had a bioprosthetic valve in place for greater than 3 months, Coumadin or a direct oral anticoagulant are both endorsed his options. For ease of administration, will transition her back to anticoagulation now that she is tolerating orals, with plans to start Eliquis. -Ultimately, given her history of prosthetic valve disease, atrial fibrillation, and likely underlying stroke, a direct oral anticoagulant plus aspirin 81 mg daily likely indicated, however will hold aspirin again in the short-term in an effort to reduce bleeding risk as Eliquis started. -Her DVT prophylaxis dose subcutaneous heparin has been discontinued. -Continue metoprolol for rate control. Anticipate ventricular rates will improve as her general health condition improves. (5) CKD (chronic kidney disease) stage 3, GFR 30-59 ml/min: -Renal function stable. -Potassium of 3.4 mmol/L today, oral replacement already ordered by the primary team DVT prophylaxis: Subcutaneous heparin discontinued in favor of full anticoagulation dose Eliquis. Case discussed with Dr. Barrios by phone. Admission and Anticipated Discharge Date Admission Date: September 21, 2021 Subjective Ms. Corea is seen in cardiology follow up today. Had been seen by the undersigned on 10/23/20, and by Dr Marcano in the interim. On 10/23, patient was very somnolent and unable to take oral medications. Yesterday, was agitated, had pulled her IV access. This am, appears improved. Still lethargic, and has some degree of right sided neglect however she is able to tell me she is at "[place]" and moves all 4 extremities on command. She has been taking oral medications yesterday and this am. Review of Systems Review of Systems: Unobtainable due to reduced consciousness Physical Exam Constitutional: + ill appearing and + altered mental status Neck: no bruits Respiratory: normal respiratory effort, lungs clear to auscultation Cardiovascular: Rate/Rhythm: + tachycardic and + irregularly irregular Heart Sounds: no murmur Extremities: no edema Chest (Breasts): Chest: + pacemaker (pacer pocket, clean , dry, intact) Neurologic: still lethargic but improved, some degree of right sided neglect, moves all 4 extremities equally. Results & Data ([facility]) Vital Signs (Past 12 Hours) Vital Signs Temp Pulse Resp BP BP Pulse Ox 09/25/21 07:22 37.3 C 101 H 15 140/111 H 96 09/25/21 03:08 36.9 C 105 H 21 165/97 H 97 09/24/21 23:04 36.7 C 104 H 20 167/82 H 95 Laboratory Results Coagulation INR 1.5 09/25/21 Range/Units 07:09 PT 14.4 H (9.0-12.0) Seconds Comprehensive Metabolic Panel 09/25/21 Range/Units 07:09 Sodium 138 (136-145) mmol/L Potassium 3.4 L (3.5-5.1) mmol/L Chloride 106 (98-107) mmol/L Carbon Dioxide 23 (21-32) mmol/L BUN 11 (7-18) mg/dl Creatinine 0.72 (0.6-1.2) mg/dl Glucose 97 (70-99) mg/dl Calcium 9.8 (8.5-10.1) mg/dl Intake and Output 09/24/21 09/25/21 09/25/21 22:59 06:59 14:59 Intake Total 105 / 2445 295 / 2445 105 / 105 Output Total 1450 / 2890 1200 / 2890 550 / 550 Balance -1345 / -445 -905 / -445 -445 / -445 Intake: IV 105 / 1145 270 / 1145 105 / 105 Vancomycin HCl 1,000 mg In 270 / 270 Sodium Chloride 0.9% 250 ml @ 200 mls/hr IV Q12H [facility] Rx#: [id number] levETIRAcetam 500 mg In 0.9 % 105 / 210 105 / 105 Sodium Chloride 100 ml @ 420 mls/hr IV Q12H [facility] Rx#:[id number] Oral 25 Output: Urine Amount (Catheter) 1450 / 2890 1200 / 2890 550 / 550 Dupree/Indwelling 1450 / 2890 1200 / 2890 550 / 550 Other: Weight 79.3 kg Weight Measurement Method Built in [facility]
[2021-09-25] MEDS: APIXABAN 5 MG TABLET PO SCH ×2 (11:00→20:34)
--- NOTE | 2021-09-25 11:42 | CT Scan Report ---
CT head/brain wo con CLINICAL HISTORY: Altered Mental status Technique: Contiguous axial CT images of the head were acquired from the base of the skull to the aung toni without intravenous contrast administration. Images were viewed in brain, subdural and bone [facility]. Automated dose lowering techniques and/or adjustment according to patient size were utilized for this exam. Comparison: Comparison is made to CTA head and neck 09/22/2021 Findings: Areas of decreased attenuation are present in the periventricular and subcortical white matter bilate rally consistent with small vessel ischemic disease. Generalized cerebral atrophy with commensurate e nlargement of the ventricles, sulci, and cisterns is also present. There is no acute intracranial hem orrhage or evidence of acute territorial infarction. No shift of the midline structures, mass effect, or extra-axial abnormalities are shown. Atherosclerotic calcifications are present in the intracran ial segments of the internal carotid arteries. 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 Imaged portions of the paranasal sinuses and mastoid air cells are clear. The orbits appear normal. There are no acute fractures of the calvaria or scalp swelling. Impression: No acute intracranial hemorrhage, no evidence of acute territorial infarction or other acute intracra nial disease process. ACT 112: Negative or not required by law. Electronically signed by: David Lord M.D. 09/25/2021 11:41 AM
--- NOTE | 2021-09-25 12:40 | Electroencephalogram ---
EEG Procedure Note Date of Service September 25, 2021 Start / End Times Start Time: 10 12 End Time: 1032 Referring Physician Rahul Huber MD History possible seizure with protracted postictal confusion question ongoing subclinical seizure activity of nonconvulsive type Home Medication List Medication Instructions Recorded Confirmed Type glucosamine-chondroitin 500 mg-400 2 cap PO DAILY cap 05/11/19 09/21/21 History mg capsule warfarin 2.5 mg tablet 2.5 mg PO UD 09/10/19 09/21/21 History metoprolol succinate 100 mg 100 mg PO BID #180 tab 05/24/21 09/21/21 Rx tablet,extended release 24 hr Prevagen 10 mg PO DAILY 09/21/21 09/21/21 History acetaminophen 325 mg tablet 325 mg PO QID PRN 09/21/21 09/21/21 History (Tylenol) cyclobenzaprine 5 mg tablet 5 mg PO TID PRN 09/21/21 09/21/21 History loratadine 10 mg tablet 10 mg PO DAILY 09/21/21 09/21/21 History multivitamin 1 tab PO DAILY 09/21/21 09/21/21 History Inpatient Medication List Apixaban (Apixaban 5 Mg Tablet) 5 mg PO BID [facility] Stop: 10/25/21 10:14 Last Admin: 09/25/21 11:00 Dose: 5 mg Documented by: [id number] Levetiracetam 500 mg/ Sodium (Chloride) 105 mls @ 420 mls/hr IV Q12H [facility] Stop: 10/23/21 08:59 Last Infusion: 09/25/21 09:23 Dose: 0 mls/hr Documented by: [id number] Admin: 09/25/21 09:05 Dose: 420 mls/hr Documented by: [id number] Infusion: 09/24/21 22:10 Dose: 0 mls/hr Documented by: [id number] Admin: 09/24/21 20:31 Dose: 420 mls/hr Documented by: [id number] Infusion: 09/24/21 08:49 Dose: 0 mls/hr Documented by: [id number] Admin: 09/24/21 08:34 Dose: 420 mls/hr Documented by: [id number] Infusion: 09/23/21 23:50 Dose: 0 mls/hr Documented by: [id number] Admin: 09/23/21 23:32 Dose: 420 mls/hr Documented by: [id number] Infusion: 09/23/21 10:02 Dose: 0 mls/hr Documented by: [id number] Admin: 09/23/21 09:47 Dose: 420 mls/hr Documented by: [id number] Vancomycin HCl 1,000 mg/ (Sodium Chloride) 270 mls @ 200 mls/hr IV Q12H COUNT INCLUDES THE [facility] Stop: 10/08/21 22:59 Last Infusion: 09/25/21 12:29 Dose: 0 mls/hr Documented by: [id number] Admin: 09/25/21 11:00 Dose: 200 mls/hr Documented by: [id number] Infusion: 09/25/21 02:18 Dose: 0 mls/hr Documented by: [id number] Admin: 09/25/21 00:11 Dose: 200 mls/hr Documented by: [id number] Lisinopril (Lisinopril 5 Mg Tab) 5 mg PO [facility] Stop: 10/22/21 08:59 Last Admin: 09/25/21 08:55 Dose: 5 mg Documented by: [id number] Admin: 09/22/21 10:13 Dose: Not Given Documented by: [id number] Metoprolol Succinate (Metoprolol Succ 50mg Ext Rel Tab) 50 mg PO [facility] Stop: 10/24/21 10:14 Last Admin: 09/25/21 08:55 Dose: 50 mg Documented by: [id number] Admin: 09/24/21 11:48 Dose: 50 mg Documented by: [id number] Olanzapine (Olanzapine 10 Mg/2.1 Ml Sdv) 2.5 mg IM Q4H PRN PRN Reason: Anxiety/Agitation Stop: 10/24/21 05:44 Last Admin: 09/24/21 17:16 Dose: 2.5 mg Documented by: [id number] Discontinued Medications Aspirin (Aspirin 81 Mg Ectab) 81 mg PO [facility] Stop: 10/24/21 10:29 Last Admin: 09/25/21 08:56 Dose: 81 mg Documented by: [id number] Admin: 09/24/21 11:48 Dose: 81 mg Documented by: [id number] Diltiazem HCl (Diltiazem Hcl 5 Mg/Ml 5 Ml Vial) 5 mg IV NOW [facility] Stop: 09/21/21 14:31 Last Admin: 09/21/21 14:39 Dose: 5 mg Documented by: [id number] Cosigned by: [id number] Heparin Sodium (Porcine) (Heparin Sod 5,000 Unit/0.5 Ml Vial) 5,000 units SQ Q12 COUNT INCLUDES THE [facility] Stop: 10/24/21 20:59 Last Admin: 09/25/21 08:56 Dose: 5,000 units Documented by: [id number] Admin: 09/24/21 20:32 Dose: 5,000 units Documented by: [id number] Diltiazem HCl 125 mg/ Dextrose 125 mls @ 15 mls/hr IV .Q8H20M COUNT INCLUDES THE [facility]; Protocol Stop: 10/21/21 14:29 Last Admin: 09/24/21 10:34 Dose: Not Given Documented by: [id number] Titration: 09/24/21 10:33 Dose: 0 mg/hr, 0 mls/hr Documented by: [id number] Cosigned by: [id number] Admin: 09/24/21 00:26 Dose: 15 mg/hr, 15 mls/hr Documented by: [id number] Cosigned by: [id number] Titration: 09/23/21 21:11 Dose: 15 mg/hr, 15 mls/hr Documented by: [id number] Cosigned by: [id number] Admin: 09/23/21 12:51 Dose: 15 mg/hr, 15 mls/hr Documented by: [id number] Cosigned by: [id number] Titration: 09/23/21 12:01 Dose: 15 mg/hr, 15 mls/hr Documented by: [id number] Cosigned by: [id number] Admin: 09/23/21 03:41 Dose: 15 mg/hr, 15 mls/hr Documented by: [id number] Cosigned by: [id number] Titration: 09/23/21 03:20 Dose: 15 mg/hr, 15 mls/hr Documented by: [id number] Cosigned by: [id number] Admin: 09/22/21 19:00 Dose: 15 mg/hr, 15 mls/hr Documented by: [id number] Cosigned by: [id number] Titration: 09/22/21 18:56 Dose: 15 mg/hr, 15 mls/hr Documented by: [id number] Cosigned by: [id number] Admin: 09/22/21 10:36 Dose: 15 mg/hr, 15 mls/hr Documented by: [id number] Cosigned by: [id number] Titration: 09/22/21 10:36 Dose: 15 mg/hr, 15 mls/hr Documented by: [id number] Cosigned by: [id number] Admin: 09/22/21 02:20 Dose: 15 mg/hr, 15 mls/hr Documented by: [id number] Cosigned by: [id number] Titration: 09/22/21 02:20 Dose: 0 mg/hr, 0 mls/hr Documented by: [id number] Cosigned by: [id number] Titration: 09/21/21 22:30 Dose: 15 mg/hr, 15 mls/hr Documented by: [id number] Cosigned by: [id number] Titration: 09/21/21 16:03 Dose: 10 mg/hr, 10 mls/hr Documented by: [id number] Cosigned by: [id number] Admin: 09/21/21 14:56 Dose: 5 mg/hr, 5 mls/hr Documented by: [id number] Cosigned by: [id number] Sodium Chloride (Nss) 500 mls @ 125 mls/hr IV .Q4H [facility] Stop: 10/21/21 15:59 Last Infusion: 09/21/21 18:43 Dose: 0 mls/hr Documented by: [id number] Admin: 09/21/21 16:04 Dose: 125 mls/hr Documented by: [id number] Potassium Chloride (K Adryan / Wtr) 10 meq in 100 mls @ 100 mls/hr IV Q1H [facility]; Protocol Stop: 09/21/21 19:45 Last Admin: 09/22/21 06:13 Dose: Not Given Documented by: [id number] Potassium Chloride/Sodium Chloride (Normal Saline W/20 Meq Kcl) 20 meq in 1,000 mls @ 80 mls/hr IV .[id number] [facility] Stop: 09/22/21 08:59 Last Infusion: 09/22/21 09:37 Dose: 0 mls/hr Documented by: [id number] Admin: 09/21/21 20:51 Dose: 80 mls/hr Documented by: [id number] Ceftriaxone Sodium 1,000 mg/ (Dextrose) 50 mls @ 100 mls/hr IV Q24H [facility]; Protocol Stop: 09/23/21 20:59 Last Infusion: 09/22/21 21:52 Dose: 0 mls/hr Documented by: [id number] Admin: 09/22/21 21:00 Dose: 100 mls/hr Documented by: [id number] Infusion: 09/21/21 23:45 Dose: 0 mls/hr Documented by: [id number] Admin: 09/21/21 20:51 Dose: 100 mls/hr Documented by: [id number] Sodium Chloride (Nss 1000ml) 1,000 mls @ 80 mls/hr IV .[id number] [facility] Stop: 09/23/21 15:14 Last Infusion: 09/23/21 16:01 Dose: 0 mls/hr Documented by: [id number] Infusion: 09/23/21 16:00 Dose: 0 mls/hr Documented by: [id number] Admin: 09/23/21 03:34 Dose: 80 mls/hr Documented by: [id number] Infusion: 09/23/21 03:34 Dose: 0 mls/hr Documented by: [id number] Admin: 09/22/21 14:40 Dose: 80 mls/hr Documented by: [id number] Levetiracetam 1,000 mg/ Sodium (Chloride) 110 mls @ 440 mls/hr IV ONE ONE Stop: 09/22/21 17:14 Last Infusion: 09/22/21 17:48 Dose: 0 mls/hr Documented by: [id number] Admin: 09/22/21 17:22 Dose: 440 mls/hr Documented by: [id number] Vancomycin HCl 2,000 mg/ (Sodium Chloride) 540 mls @ 200 mls/hr IV NOW ONE Stop: 09/24/21 12:41 Last Infusion: 09/24/21 13:29 Dose: 0 mls/hr Documented by: [id number] Admin: 09/24/21 10:47 Dose: 200 mls/hr Documented by: [id number] Influenza Virus Vaccine (Flu Vaccine-High Dose (Fluzone-Hd) Pf 65+ 0.7ml Syr) 0.7 ml IM .ONCE ONE Stop: 09/22/21 09:01 Last Admin: 09/22/21 09:50 Dose: Not Given Documented by: [id number] Ioversol (Optiray 320 125ml) 119 ml IV ONCE ONE Stop: 09/22/21 15:33 Last Admin: 09/22/21 15:33 Dose: 119 ml Documented by: [id number] Lisinopril (Lisinopril 5 Mg Tab) 5 mg PO ONE ONE Stop: 09/24/21 11:01 Last Admin: 09/24/21 13:07 Dose: 5 mg Documented by: [id number] Metoprolol Succinate (Metoprolol Succ 50mg Ext Rel Tab) 100 mg PO BID COUNT INCLUDES THE [facility] Stop: 10/21/21 20:59 Last Admin: 09/22/21 10:13 Dose: Not Given Documented by: [id number] Admin: 09/21/21 20:51 Dose: Not Given Documented by: [id number] Metoprolol Tartrate (Metoprolol Tartrate 1 Mg/Ml Vial) 5 mg IV Q6 [facility] Stop: 10/22/21 17:59 Last Admin: 09/24/21 08:36 Dose: 5 mg Documented by: [id number] Admin: 09/24/21 02:15 Dose: 5 mg Documented by: [id number] Admin: 09/23/21 18:10 Dose: 5 mg Documented by: [id number] Admin: 09/23/21 12:51 Dose: 5 mg Documented by: [id number] Admin: 09/23/21 06:29 Dose: 5 mg Documented by: [id number] Admin: 09/22/21 23:23 Dose: 5 mg Documented by: [id number] Admin: 09/22/21 17:22 Dose: 5 mg Documented by: [id number] Metoprolol Tartrate (Metoprolol Tartrate 1 Mg/Ml Vial) 5 mg IV NOW STA Stop: 09/22/21 12:30 Last Admin: 09/22/21 13:06 Dose: 5 mg Documented by: [id number] Miscellaneous (Stat Iv Infusion Titration Per Protocol) 1 ea N/A NOW STA Stop: 09/21/21 14:31 Last Admin: 09/21/21 15:29 Dose: 1 ea Documented by: [id number] Pneumococcal Polyvalent Vaccine (Pneumococcal Polysaccharide Vaccine 25mcg/0.5ml Vial/Syr) 25 mcg IM .ONCE ONE Stop: 09/22/21 09:01 Last Admin: 09/22/21 09:50 Dose: Not Given Documented by: [id number] Potassium Chloride (Potassium Chloride Crtab 20 Meq Tabcr) 40 meq PO ONE ONE Stop: 09/25/21 09:45 Last Admin: 09/25/21 11:00 Dose: 40 meq Documented by: [id number] Warfarin Sodium (Warfarin Sod 1.25 Mg Tab) 1.25 mg PO ONCE ONE Stop: 09/21/21 20:01 Last Admin: 09/21/21 20:50 Dose: Not Given Documented by: [id number] Description This is a 21 electrode EEG with a single channel dedicated to limited EKG. The electrodes were placed in accordance with the International 10-20 system. this EEG was done is a bedside recording with photic stimulation but without drowsiness and light sleep being recorded. Very few muscle movement artifacts are seen. The tracing is improved from the prior study of 1231 but still reveals an absence of a normal background alpha rhythm and a predominant background rhythm in the upper theta range at about 8 hertz a maximum frequency and 20 microvolts a maximum amplitude. The theta activity which was a little more prominent last time and which was intermixed with more delta activity is less evident, has shifted higher frequencies and has a lower amplitude. There still remains no evidence for accentuated theta delta activity over a knee head region. Beta activity seen bifrontally. Again as in the prior study there is no evidence for focal slowing and no evidence for potentially epileptogenic activity over the left hemisphere where imaging studies revealed evidence for prior infarct involving the parietal cortex Interpretation This EEG is minimally abnormal revealing evidence for reduction of the alpha rhythm into the theta range and slightly excessive amounts of theta activity was improved on the prior study which was more generalized slow-wave activity and continues revealed no evidence for potentially epileptogenic activity specifically over the left hemisphere at the site of the old infarction Clinical Correlation This EEG is mildly to minimally abnormal consistent with a mild generalized nonfocal encephalopathy without potentially epileptogenic features but could still reflect effects of a protracted post ictal state and does not exclude the diagnosis of a seizure disorder Rahul Huber MD
--- NOTE | 2021-09-25 16:05 | Communication Note ---
Date of Service: September 25, 2021 At the remains confused today although I did speak to her one-on-one nursing staff and this morning apparently she was oriented to place and was not hallu cinating as actively as she has been later in the day although she was lethargic most of the day and apparently had been up quite a bit at night in an agitated state Her EEG is mildly slow but again there is no focal slowing or spikes We are continuing to treat this is a prolonged post ictal state but the picture is getting less and less consistent and looks more like a nonspecific toxic or metabolic encephalopathy despite the fact that laboratory studies are normal and there is no evidence for infection She has been empirically treated with vancomycin and we have her on Keppra 500 twice a day. I do not think she has been on the latter for long enough for this to be an explanation for her current mental status Exam reveals her to be arousable today she has a slightly dysarthric speech eye movements are full there is no drift or pronation sign is no abnormal involuntary movements but she really insists that she is not in the hospital, she is at her home, the year is 2000, when I try to redirect her I get a lot of resistance I will check a serum ammonia although the picture it would be atypical for this and there is no evidence for liver dysfunction We will check back with her tomorrow I I may consider another CT scan to see if there is now is evidence for any small areas of new infarction compatible with a possible embolic shower is unfortunately we really cannot do an MRI scan due to the nature of her cardiac valve Rahul Huber MD
--- NOTE | 2021-09-25 17:02 | Hospitalist Progress Note ---
Date of Service September 25, 2021 Assessment & Plan (1) Acute alteration in mental status: Plan: Altered mental status Acute metabolic encephalopathy DD: secondary to medications (cyclobenzaprine, Melatonin), Possible Seizure with Aaron's paralysis , Can not rule out CVA Patient's family noticed: Generalized shaking associated with urinary incontinence prior to hospitalization. -CT head, CTA Head/Neck:There is no hemorrhage, mass effect, or evidence of acute territorial ischemia by CT criteria. The distal internal carotid arteries, the vertebral arteries, and the basilar artery demonstrate a mildly beaded appearance. This is nonspecific but can be seen in the setting of fibromuscular dysplasia. Otherwise unremarkable CT angiograms of the head and neck. --EEG:Mild to moderate nonspecific generalized nonfocal encephalopathy without potentially epileptogenic features -Cannot obtain MRI due to pacemaker incompatibility -Negative toxicology screen -Hold any sedating meds, avoid narcotics Urine Culture Negative Received empiric Rocephin Appreciate neurology input On Keppra 500 mg twice daily Normal Ammonia level Repeat EEG suggestive of mild generalized nonfocal encephalopathy without potentially epileptogenic features could still reflect effects of protracted postictal state and does not exclude a diagnosis of seizure disorder Repeat CT head unremarkable Start on thiamine Rule out Bacteremia 1/2 blood Cx staph species Repeat blood cultures pending Continue Vancomycin for now Decreased urine output Secondary to dehydration Bladder scan as needed Received IV fluids (2) Atrial fibrillation with RVR: Plan: Echo reviewed On IV diltiazem>>> transition to Metoprolol 50 mg daily IV metoprolol as needed Appreciate cardiology input Coumadin transition to Eliquis (3) Elevated CPK: Plan: -CPK levels better Received IV fluids (4) Hypercalcemia: Plan: Calcium levels near normal Elevated PTH as an outpatient Other work-up as outpatient (5) Anticoagulated on Coumadin: Plan: Continue on Eliquis (6) HTN (hypertension): Plan: -Metoprolol, lisinopril resumed (7) CKD (chronic kidney disease) stage 3, GFR 30-59 ml/min: Plan: Cr at baseline Monitor Plan: DVT Px: Eliquis Code Status DNI/DNR as per POA Admission and Anticipated Discharge Date Admission Date: September 21, 2021 Subjective Patient is seen and examined at bedside Patient had EEG earlier today Patient is oriented but drowsy Sitter at bedside Poorly slept overnight Discussed with cardiology today Repeat CT head showed no acute process Normal ammonia levels Denies any chest pain, shortness of breath, dizziness Review of Systems Review of Systems: All systems reviewed & are unremarkable except as noted in Subjective Physical Exam Physical Exam: Physical Exam: Vitals signs as noted above General Appearance:Moderately built and nourished, Ill appearing Head: normocephalic, Atraumatic Eyes: normal inspection, EOMI Neck: supple, Trachea midline Respiratory/Chest: Normal breath sounds, CTA Cardiovascular: Irregularly Irregular, No murmur Abdomen/GI:Soft, Non tender, Bowel sounds present Extremities/Musculoskeletal:normal inspection, no edema Neurologic/Psych:Alert, awake, Oriented X2, grossly no focal deficits Skin: normal color, warm Results & Data Results & Data ([facility]) Vital Signs (Past 12 Hours) Vital Signs Temp Pulse Resp BP Pulse Ox 09/25/21 15:00 36.6 C 111 H 14 155/102 H 97 09/25/21 10:55 36.8 C 101 H 17 150/109 H 96 09/25/21 07:22 37.3 C 101 H 15 140/111 H 96 Laboratory Results [facility] 09/25/21 07:09 Sodium 138 Potassium 3.4 L Chloride 106 Carbon Dioxide 23 BUN 11 Creatinine 0.72 Glucose 97 Calcium 9.8 (1) HTN (hypertension) Hypertension type: unspecified Qualified Code(s): I10 - Essential (primary) hypertension
[2021-09-25] MEDS: THIAMINE HCL 100 MG TAB PO SCH (18:39)
[2021-09-25] MEDS: levETIRAcetam 500 MG TAB PO SCH (20:33)
[2021-09-26] MEDS: THIAMINE HCL 100 MG TAB PO SCH (08:14)
[2021-09-26] MEDS: levETIRAcetam 500 MG TAB PO SCH ×2 (08:14→20:22)
[2021-09-26] MEDS: APIXABAN 5 MG TABLET PO SCH ×2 (08:14→20:21)
[2021-09-26] MEDS: lisinopril 5 MG TAB PO SCH (08:14)
[2021-09-26] MEDS: METOPROLOL SUCC 50MG EXT REL TAB PO SCH ×2 (08:14→20:22)
[2021-09-26] MEDS ORDERED: VANCOMYCIN TROUGH ONE (10:30)
[2021-09-26 11:00] LABS: Hemoglobin 13.7 g/dL (12.0-16.0); Mean Corpuscular Hemoglobin 27.9 pg (25-34); Mean Corpuscular Hgb Conc 31.9 g/dL (32-36); Mean Corpuscular Volume 87.6 fL (80-100); Mean Platelet Volume 10.3 fL (7.4-10.4); Platelet Count 293 K/uL (130-400); RDW Coefficient of Variation 14.5 % (11.5-14.5); RDW Standard Deviation 46.5 fL (36.4-46.3); Red Blood Count 4.91 M/uL (4.2-5.4); White Blood Count 11.94 K/uL (4.8-10.8)
[2021-09-26 11:27] LABS: BUN Creatinine Ratio 23.5 (10-20); Calcium 10.1 mg/dl (8.5-10.1); Creatinine Clr Calc Pharmacy 54.9 ml/min; Est GFR (African American) 74.5 ml/min; Est GFR (Non-African American) 64.3 ml/min
--- NOTE | 2021-09-26 11:46 | Cardiology Progress Note ---
Date of Service September 26, 2021 Assessment & Plan (1) Acute encephalopathy: (2) Atrial fibrillation with RVR: (3) Anticoagulated on Coumadin: (4) S/P TAVR (transcatheter aortic valve replacement): (5) CKD (chronic kidney disease) stage 3, GFR 30-59 ml/min: Plan: (1) Acute encephalopathy: -Etiology still uncertain, patient tells me she drinks an occasional glass of wine, but certainly does not endorse daily alcohol use. -She is afebrile, 1/ blood cultures notable for gram-positive cocci (perhaps contaminant) repeat cultures performed 09/24/2021, without growth thus far. Agree with empiric coverage with vancomycin pending culture results. -Her [employer] permanent pacemaker leads date back to 2006, with generator change in 2013, and her device therefore is not MRI compatible. CT studies x2 without acute evidence of stroke or focal stenosis in the carotid or cerebral vasculature. -Continue supportive care, avoid sedatives, repeat CT. (2) Atrial fibrillation with RVR: (3) History of prior anticoagulation with Coumadin: (4) S/P TAVR (transcatheter aortic valve replacement): -Telemetry with findings of ongoing atrial fibrillation with ventricular rates in the range of 100 to 116 bpm. -She has tolerated oral metoprolol yesterday and again today. -Due to persistent, perhaps now permanent atrial fibrillation, recent outpatient EP consultation had recommended rate control and anticoagulation strategy, this was deemed that maintenance of sinus rhythm would likely not be achieved. -For the most recent AHA/ACC treatment guidelines for patients with valvular heart disease, in a patient who requires anticoagulation for stroke prophylaxis in the setting of atrial fibrillation, and has had a bioprosthetic valve in place for greater than 3 months, Coumadin or a direct oral anticoagulant are both endorsed his options. For ease of administration, will transition her back to anticoagulation now that she is tolerating orals, with plans to start Eliquis. -Ultimately, given her history of prosthetic valve disease, atrial fibrillation, and likely underlying stroke, a direct oral anticoagulant plus aspirin 81 mg daily likely indicated, however will hold aspirin again in the short-term in an effort to reduce bleeding risk as Eliquis started. -titrate metoprolol succinate to her [employer] dose of 100 mg BID. (5) CKD (chronic kidney disease) stage 3, GFR 30-59 ml/min: -Renal function stable. -Potassium stable 4 mmol/l today. DVT prophylaxis: Subcutaneous heparin discontinued in favor of full anticoagulation dose Eliquis. Admission and Anticipated Discharge Date Admission Date: September 21, 2021 Leanna Saenz is seen in follow up. She is able to tell me she is at "[facility]" but notes she would "rather be at home" Follows commands. Telemetry reveals AF, 100-116 bpm. Review of Systems Review of Systems: Unobtainable due to reduced consciousness Physical Exam Physical Exam: Temp Pulse Resp BP Pulse Ox 36.7 C 97 H 20 136/80 94 09/26/21 11:15 09/26/21 11:15 09/26/21 03:11 09/26/21 11:15 09/26/21 11:15 Constitutional: + ill appearing and + altered mental status Respiratory: normal respiratory effort, lungs clear to auscultation Cardiovascular: Rate/Rhythm: + tachycardic and + irregularly irregular Heart Sounds: no murmur Extremities: no edema Chest (Breasts): Chest: + pacemaker (pacer pocket, clean , dry, intact) Neurologic: lethargic, but still trending toward improvement. Follows commands, shows 2 fingers on both hands upon request, moves toes bilaterally Results & Data ([facility]) Vital Signs (Past 12 Hours) Vital Signs Temp Pulse Pulse Resp BP Pulse Ox 09/26/21 11:15 36.7 C 97 H 136/80 94 09/26/21 09:56 104 H 09/26/21 08:07 36.9 C 117 H 158/88 H 92 09/26/21 03:11 37.0 C 113 H 20 147/83 H 92 09/25/21 23:53 104 H Diagnostic Findings Repeat blood cultures from 09/24/21, still with no growth
[2021-09-26] MEDS: VANCOMYCIN HCL 1,000 MG in SODIUM CHLORIDE 0.9% 250 ML IV SCH (12:10)
--- NOTE | 2021-09-26 14:02 | Pharmacy Report ---
Pharmacy Vanc AUC Short Note - Date of Service September 26, 2021 - Assessment & Plan Assessment 76 year old F receiving vancomycin for treatment of bacteremia. Pertinent microbiologic data includes: blood culture growing Gram positive cocci in anaerobic bottle. Day # 3 of antimicrobial therapy. Plan Vancomycin * AUC/AGGIE is the preferred PK/PD target for vancomycin * AUC guided dosing is effective and associated with decreased risk of nephrotoxicity compared to traditional trough targets * Trough level came back at ~15 mcg/ml - however dosing is predicted to reach AUC >600 with continued dosing * Therefore, plan to scale back on vancomycin dosing to 750 mg iv q 12 hrs to target AUC 400-600 * Spoke with provider and unclear if organism is contaminant, want to continue vancomycin for now and await final sensitivities/speciation Pharmacy will continue to follow and will adjust dose/frequency as necessary. Thank you.
--- NOTE | 2021-09-26 15:48 | Hospitalist Progress Note ---
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 -CT head, CTA Head/Neck:There is no hemorrhage, mass effect, or evidence of acute territorial ischemia by CT criteria. The distal internal carotid arteries, the vertebral arteries, and the basilar artery demonstrate a mildly beaded appearance. This is nonspecific but can be seen in the setting of fibromuscular dysplasia. Otherwise unremarkable CT angiograms of the head and neck. --EEG:Mild to moderate nonspecific generalized nonfocal encephalopathy without potentially epileptogenic features -Cannot obtain MRI due to pacemaker incompatibility -Negative toxicology screen -Hold any sedating meds, avoid narcotics Urine Culture Negative Received empiric Rocephin Appreciate neurology input Continue Keppra 500 mg twice daily Normal Ammonia level Repeat EEG suggestive of mild generalized nonfocal encephalopathy without potentially epileptogenic features could still reflect effects of protracted postictal state and does not exclude a diagnosis of seizure disorder Repeat CT head unremarkable Continue thiamine Ental status gradually improving Rule out Bacteremia 1/2 blood Cx staph species Repeat blood cultures Negative Continue Vancomycin for now Decreased urine output Secondary to dehydration Bladder scan as needed Received IV fluids (2) Atrial fibrillation with RVR: Plan: Echo reviewed On IV diltiazem>>> transition to Metoprolol 100 mg BID IV metoprolol as needed Appreciate cardiology input Coumadin transition to Eliquis Monitor electrolytes (3) Elevated CPK: Plan: -CPK levels better Received IV fluids (4) Hypercalcemia: Plan: Calcium levels near normal Elevated PTH as an outpatient Other work-up as outpatient (5) Anticoagulated on Coumadin: Plan: Continue on Eliquis (6) HTN (hypertension): Plan: -Metoprolol, lisinopril resumed (7) CKD (chronic kidney disease) stage 3, GFR 30-59 ml/min: Plan: Cr at baseline Monitor Plan: DVT Px: Eliquis Code Status DNI/DNR as per POA Admission and Anticipated Discharge Date Admission Date: September 21, 2021 Subjective Patient is seen and examined at bedside Mental status much improved today Patient cannot recollect events prior to admission Offers no complaints this morning Tachycardic on monitor Sitter at bedside Denies any chest pain, shortness of breath, dizziness Review of Systems Review of Systems: All systems reviewed & are unremarkable except as noted in Subjective Physical Exam Physical Exam: Physical Exam: Vitals signs as noted above General Appearance:Moderately built and nourished, Ill appearing Head: normocephalic, Atraumatic Eyes: normal inspection, EOMI Neck: supple, Trachea midline Respiratory/Chest: Normal breath sounds, CTA Cardiovascular: Irregularly Irregular, No murmur Abdomen/GI:Soft, Non tender, Bowel sounds present Extremities/Musculoskeletal:normal inspection, no edema Neurologic/Psych:Alert, awake, Oriented X3, grossly no focal deficits Skin: normal color, warm Results & Data Results & Data ([facility]) Vital Signs (Past 12 Hours) Vital Signs Temp Pulse Pulse BP Pulse Ox 09/26/21 15:01 36.9 C 108 H 132/79 93 09/26/21 11:15 36.7 C 97 H 136/80 94 09/26/21 09:56 104 H 09/26/21 08:07 36.9 C 117 H 158/88 H 92 Laboratory Results Short CBC 09/26/21 Range/Units 10:37 WBC 11.94 H (4.8-10.8) K/uL Hgb 13.7 (12.0-16.0) g/dL Hct 43.0 (37-47) % Plt Count 293 (130-400) K/uL BMP 09/26/21 10:37 Sodium 138 Potassium 4.0 D Chloride 107 Carbon Dioxide 28 BUN 20 H D Creatinine 0.87 Glucose 108 H Calcium 10.1 (1) HTN (hypertension) Hypertension type: unspecified Qualified Code(s): I10 - Essential (primary) hypertension
--- NOTE | 2021-09-26 15:57 | Neurology Progress Note ---
Date of Service September 26, 2021 Assessment & Plan (1) Acute encephalopathy: Plan: 1. CT head no evidence of stroke 2. EEG- no seizure focus 3. continue Keppra 500 mg q 12 hours 4. no driving for 6 months from last seizure date, no heights, no bathing or swimming alone 5. much improved 6. PT/OT for discharge needs will see in neurology office 4-6 weeks and may have 72 hours EEG to see if Keppra can be stopped. will see her tomorrow for further recommendations (2) Syncope: Plan: 1. possible seizure (3) Paroxysmal a-fib: Plan: 1. coumadin at therapeutic levels. Admission and Anticipated Discharge Date Admission Date: September 21, 2021 Supervising Physician Co-Signing Physician Notes I have seen and discussed above patient with Dr Rahul Huber, neurology At this is much improved today she is still a little disoriented to time and place, knows she is in the hospital knows is 2021 knows that she is in [place] but cannot name the hospital and does not know the month and cannot recall [place]. She now has a little tremor of her lips but her neurologic examination is otherwise normal We checked another CT scan which does not show new infarctions and an ammonia level was normal We are left with the diagnosis of exclusion i.e. this is a protracted post ictal confusional state with elements of Aaron's paralysis likely primarily involving left hemispheric neuronal function and clearing slowly We will get a continue the Keppra and will arrange to see her in our office on outpatient basis but for now we will continue to make daily rounds to ensure that her mental status gets back to some reasonable baseline she does not need a will not need a rehabilitation facility Rahul Huber MD Subjective Letty is a 76 year old female with a PMH- tachy-melissa syndrome s/p PPM, permanent afib on chronic anticoagulation with warfarin, s/p TAVR, HTN, CKD3, HLD, and diastolic heart failure who was brought to [facility] 09/21/2022 via EMS due to worsening acute confusion.She became increasingly confused over the past three days. She was seen by her PCP office two days ago and labs were collected.Daughter in law noticed a bottle of cyclobenzaprine she was taking at least daily. She took melatonin 5 mg that night and went to bed. When she checked on her the next day she found Letty's car running in the garage with the door closed but she was not in the car.Her son checked on her and found her lying on the floor, smelling of urine and with dog feces on her shoulder.EMS was called and when they attempted to move her onto the stretcher she became combative and had to be sedated to safely transport and evaluate her. There was concern she was not taking her medications correctly. She had several EEG and CT head which were unremarkable but she remained confused and irritated. Today she walked to the bathroom and the gann catheter was removed. She is more alert and is more oriented. Review of Systems Review of Systems: All systems reviewed & are unremarkable except as noted in HPI & below Physical Exam Physical Exam: Physical Exam: Constitutional: appearance over nourished, healthy Ears, Nose, Mouth and Throat: mucous membranes moist, no injection and skin normal, eyes normal Cardiovascular: irregular Respiratory: course breath sounds Skin: no stigmata of neurocutaneous disease noted and normal and intact Eyes: extraocular muscles intact (EOMI) NEUROLOGIC EXAMINATION: Mental status: Alert and interactive Oriented medical rehab, 2021, month October, date 43. Oriented to person Speech fluent with no evidence of aphasia Cranial Nerves smile eye brow raise symmetric Reflexes: Deep tendon reflexes were symmetrical and graded 2/5. Coordination: finger to nose Gait/Stance: Posture lying in bed Motor: Negative for pronator drift of out stretched arms with eyes closed. 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 5/5 Results & Data ([facility]) Vital Signs (Past 12 Hours) Vital Signs Temp Pulse Pulse BP Pulse Ox 09/26/21 15:01 36.9 C 108 H 132/79 93 09/26/21 11:15 36.7 C 97 H 136/80 94 09/26/21 09:56 104 H 09/26/21 08:07 36.9 C 117 H 158/88 H 92 Laboratory Results Abnormal lab results 09/26/21 09/26/21 Range/Units 10:37 10:37 WBC 11.94 H (4.8-10.8) K/uL MCHC 31.9 L (32-36) g/dL RDW Std Deviation 46.5 H (36.4-46.3) fL BUN 20 H D (7-18) mg/dl BUN/Creatinine Ratio 23.5 H (10-20) Glucose 108 H (70-99) mg/dl Diagnostic Findings CT head 09/25/21- No acute intracranial hemorrhage, no evidence of acute territorial infarction or other acute intracranial disease process. EEG-This EEG is mildly to minimally abnormal consistent with a mild generalized nonfocal encephalopathy without potentially epileptogenic features but could still reflect effects of a protracted post ictal state and does not exclude the diagnosis of a seizure disorder
[2021-09-26] MEDS: VANCOMYCIN HCL 750 MG in SODIUM CHLORIDE 0.9% 250 ML IV SCH (22:28)
[2021-09-27 05:59] LABS: Hematocrit (blood only) 40.7 % (37-47); Hemoglobin 12.8 g/dL (12.0-16.0); Mean Corpuscular Hemoglobin 27.7 pg (25-34); Mean Corpuscular Hgb Conc 31.4 g/dL (32-36); Mean Corpuscular Volume 88.1 fL (80-100); Mean Platelet Volume 10.4 fL (7.4-10.4); Platelet Count 285 K/uL (130-400); RDW Coefficient of Variation 14.2 % (11.5-14.5); RDW Standard Deviation 46.3 fL (36.4-46.3); Red Blood Count 4.62 M/uL (4.2-5.4); White Blood Count 9.06 K/uL (4.8-10.8)
[2021-09-27 06:28] LABS: BUN Creatinine Ratio 20.9 (10-20); Calcium 9.7 mg/dl (8.5-10.1); Creatinine Clr Calc Pharmacy 59.8 ml/min; Est GFR (African American) 82.4 ml/min; Est GFR (Non-African American) 71.1 ml/min; Potassium 3.8 mmol/L (3.5-5.1)
[2021-09-27] MEDS: METOPROLOL SUCC 50MG EXT REL TAB PO SCH ×2 (07:41→20:52)
[2021-09-27] MEDS: APIXABAN 5 MG TABLET PO SCH ×2 (07:42→20:53)
[2021-09-27] MEDS: levETIRAcetam 500 MG TAB PO SCH ×2 (07:42→20:53)
[2021-09-27] MEDS: THIAMINE HCL 100 MG TAB PO SCH (07:42)
[2021-09-27] MEDS: lisinopril 5 MG TAB PO SCH (07:42)
--- NOTE | 2021-09-27 10:14 | Cardiology Progress Note ---
Date of Service September 27, 2021 Assessment & Plan (1) Acute encephalopathy: (2) S/P TAVR (transcatheter aortic valve replacement): (3) Paroxysmal a-fib: Plan: She is afebrile, 1/2 blood cultures notable for gram-positive cocci (perhaps contaminant) repeat cultures performed 09/24/2021, without growth thus far. I would recommend ceasing antibiotics and observing her. Continue Eliquis. Remains in AF, ventricular rates in the 90s on FLIGHT ENGINE[employer] HELICOPTER dose of metoprolol succinate 100 mg BID. Admission and Anticipated Discharge Date Admission Date: September 21, 2021 Subjective Pt seen in follow up. She is out of bed in bedside chair. Mental status is not back to baseline , but continues to improve. Review of Systems Review of Systems: All systems reviewed & are unremarkable except as noted in HPI & below Physical Exam Physical Exam: Temp Pulse Resp BP Pulse Ox 36.8 C 97 H 18 133/87 90 09/27/21 07:00 09/27/21 07:00 09/27/21 07:00 09/27/21 07:00 09/27/21 07:00 Constitutional: + ill appearing and + altered mental status Respiratory: normal respiratory effort, lungs clear to auscultation Cardiovascular: Rate/Rhythm: + tachycardic and + irregularly irregular Heart Sounds: no murmur Extremities: no edema Chest (Breasts): Chest: + pacemaker (pacer pocket, clean , dry, intact) Results & Data ([facility]) Laboratory Results CBC 09/26/21 09/27/21 Range/Units 10:37 05:45 WBC 11.94 H 9.06 (4.8-10.8) K/uL RBC 4.91 4.62 (4.2-5.4) M/uL Hgb 13.7 12.8 (12.0-16.0) g/dL Hct 43.0 40.7 (37-47) % Plt Count 293 285 (130-400) K/uL Comprehensive Metabolic Panel 09/26/21 09/27/21 Range/Units 10:37 05:45 Sodium 138 137 (136-145) mmol/L Potassium 4.0 D 3.8 (3.5-5.1) mmol/L Chloride 107 106 (98-107) mmol/L Carbon Dioxide 28 26 (21-32) mmol/L BUN 20 H D 17 (7-18) mg/dl Creatinine 0.87 0.80 (0.6-1.2) mg/dl Glucose 108 H 98 (70-99) mg/dl Calcium 10.1 9.7 (8.5-10.1) mg/dl Intake and Output 09/26/21 09/27/21 09/27/21 22:59 06:59 14:59 Intake Total 50 / 705 265 / 705 Output Total 501 / 501 Balance -451 / 204 265 / 204 Intake: IV 265 / 535 Vancomycin HCl 750 mg In Sodium 265 / 265 Chloride 0.9% 250 ml @ 200 mls /hr IV Q12H [facility] Rx#:[id number] Oral 50 / 170 Output: Urine Amount (Catheter) 500 / 500 Dupree/Indwelling 500 / 500 # Bowel Movements Other: # Unmeasured Voids 1 Weight 75.2 kg Weight Measurement Method Built in [facility]
--- NOTE | 2021-09-27 10:52 | Hospitalist Progress Note ---
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 -CT head, CTA Head/Neck:There is no hemorrhage, mass effect, or evidence of acute territorial ischemia by CT criteria. The distal internal carotid arteries, the vertebral arteries, and the basilar artery demonstrate a mildly beaded appearance. This is nonspecific but can be seen in the setting of fibromuscular dysplasia. Otherwise unremarkable CT angiograms of the head and neck. --EEG:Mild to moderate nonspecific generalized nonfocal encephalopathy without potentially epileptogenic features -Cannot obtain MRI due to pacemaker incompatibility -Negative toxicology screen -Repeat CT Head - no evidence of acute stroke Continue to hold any sedating meds, avoid narcotics. DC flexeril on discharge Appreciate neurology input Continue Keppra 500 mg twice daily Normal Ammonia level Repeat EEG suggestive of mild generalized nonfocal encephalopathy without potentially epileptogenic features could still reflect effects of protracted postictal state and does not exclude a diagnosis of seizure disorder Repeat CT head unremarkable Continue thiamine Mental status gradually improving Spoke with son Butch over the phone. He reported that since [place] in 2020, they have noticed patient occasionally gets confused as to how to operate her phone or veers off normal conversation with mixups. However, nothing really as bad as the incident that led to presentation. This makes neurocognitive disorder a possibility. Rule out Bacteremia 1 of blood Cx bottles-CONS. Likely contaminant Repeat blood cultures Negative Will stop vancomycin for now and monitor Urine Culture Negative Received empiric Rocephin (2) Anticoagulated on Coumadin: (3) Atrial fibrillation with RVR: Plan: Echo reviewed On IV diltiazem>>> transition to Metoprolol 100 mg BID IV metoprolol as needed Machine Burrer evaluation and recommendations noted Coumadin transitioned to Eliquis Monitor electrolytes (4) Elevated CPK: Plan: CPK levels better Received IV fluids (5) Hypercalcemia: Plan: Calcium levels near normal Elevated PTH as an outpatient Other work-up as outpatient (6) HTN (hypertension): Plan: Stable Continue lisinopril (7) CKD (chronic kidney disease) stage 3, GFR 30-59 ml/min: Plan: Cr at baseline Monitor Plan: DVT Px: Eliquis Code Status DNI/DNR as per POA Awaiting placement Admission and Anticipated Discharge Date Admission Date: September 21, 2021 Subjective 76 y/o female with a PMH of tachy-melissa syndrome s/p PPM, permanent atrial fibrillation on chronic anticoagulation with warfarin, s/p TAVR, HTN, CKD3, dyslipidemia, and diastolic heart failure who was brought to the ED via EMS due to worsening acute confusion Patient seen and examined today. Denies any complaints at this time Denies any headache, dizziness Denies congestion, sore throat. Reports some mild dry cough which she said there is nothing out of the ordinary. Denies any chest pain, shortness of breath Denies any nausea, vomiting, abdominal pain, diarrhea Denies dysuria, frequency, urgency Per RN, usually appears a bit more confused at night time. RN also reported patient is better compared to when she took care of her some days ago Physical Exam Constitutional: + well hydrated; no acute distress Eyes: PERRL, conjunctivae normal, anicteric sclerae ENMT: external ear and nose normal, oropharynx normal Respiratory: normal respiratory effort, lungs clear to auscultation Cardiovascular: Rate/Rhythm: + irregularly irregular S1 S2 Gastrointestinal (Abdomen): normal bowel sounds, soft, nontender, no hepatosplenomegaly Musculoskeletal: no cyanosis or clubbing, extremities motor strength 5/5 Neurologic: PERRL, EOMI, accommodation nl, no face palsy, no dysarthria Psychiatric: A+Ox3, euthymic affect Results & Data Results & Data ([facility]) Vital Signs (Past 12 Hours) Vital Signs Temp Pulse Pulse Pulse Resp BP BP 09/27/21 07:00 36.8 C 97 H 18 133/87 09/27/21 03:07 37.3 C 95 H 17 113/73 09/26/21 23:58 107 H 09/26/21 23:20 36.6 C 113 H 18 143/94 H Pulse Ox 09/27/21 07:00 90 09/27/21 03:07 93 09/26/21 23:58 09/26/21 23:20 91 Laboratory Results Abnormal lab results 09/26/21 09/26/21 09/27/21 Range/Units 10:37 10:37 05:45 WBC 11.94 H (4.8-10.8) K/uL MCHC 31.9 L 31.4 L (32-36) g/dL RDW Std Deviation 46.5 H (36.4-46.3) fL BUN 20 H D (7-18) mg/dl BUN/Creatinine Ratio 23.5 H (10-20) Glucose 108 H (70-99) mg/dl 09/27/21 Range/Units 05:45 WBC (4.8-10.8) K/uL MCHC (32-36) g/dL RDW Std Deviation (36.4-46.3) fL BUN (7-18) mg/dl BUN/Creatinine Ratio 20.9 H (10-20) Glucose (70-99) mg/dl (1) HTN (hypertension) Hypertension type: unspecified Qualified Code(s): I10 - Essential (primary) hypertension
[2021-09-27] MEDS: VANCOMYCIN HCL 750 MG in SODIUM CHLORIDE 0.9% 250 ML IV SCH (13:33)
--- NOTE | 2021-09-27 15:37 | Communication Note ---
Date of Service: September 27, 2021 Admit as even better than she was yesterday. She is still having one-to-one nursing but is more oriented knows is 2021 no is is is September can tell me the name of the hospital can give me her address knows that she formerly lived in [place] moved to [place] in 2011 and knows that she is in contact with her son and [id number] about once a week. 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 She is currently on Keppra seems to be tolerating it well She really needs to get some physical therapy and a general rehabilitation evaluation as she may need a few days at a rehabilitation hospital before returning home and now with presumptive diagnosis of a seizure she certainly cannot operate a motor vehicle for at least 6 months I would continue the Keppra acting on the assumption that the event was a focal seizure and that her confusion leading up to it may have been subclinical seizure activity originating from her old CVA involving the left parietal area We will make another visit tomorrow but if she continues to be improving and there are plans for discharge I think she could be discharged on her current Keppra we will follow her up in our office in about 3 to 4 weeks at which point we will check an outpatient Keppra level assess how she is doing on the drug, establish whether or not she is becoming more irritable or has had a negative psychiatric side effects and will likely continue it indefinitely Rahul Huber MD
[2021-09-28 06:43] LABS: Hematocrit (blood only) 40.7 % (37-47); Hemoglobin 12.8 g/dL (12.0-16.0); Mean Corpuscular Hemoglobin 27.5 pg (25-34); Mean Corpuscular Hgb Conc 31.4 g/dL (32-36); Mean Corpuscular Volume 87.3 fL (80-100); Mean Platelet Volume 10.3 fL (7.4-10.4); Platelet Count 293 K/uL (130-400); RDW Coefficient of Variation 14.4 % (11.5-14.5); RDW Standard Deviation 45.9 fL (36.4-46.3); Red Blood Count 4.66 M/uL (4.2-5.4); White Blood Count 8.08 K/uL (4.8-10.8)
[2021-09-28 07:10] LABS: BUN Creatinine Ratio 17.6 (10-20); Calcium 9.5 mg/dl (8.5-10.1); Est GFR (African American) 82.4 ml/min; Est GFR (Non-African American) 71.1 ml/min; Potassium 3.7 mmol/L (3.5-5.1)
[2021-09-28] MEDS: lisinopril 5 MG TAB PO SCH (08:05)
[2021-09-28] MEDS: THIAMINE HCL 100 MG TAB PO SCH (08:05)
[2021-09-28] MEDS: APIXABAN 5 MG TABLET PO SCH ×2 (08:05→20:13)
[2021-09-28] MEDS: levETIRAcetam 500 MG TAB PO SCH ×2 (08:05→20:12)
[2021-09-28] MEDS: METOPROLOL SUCC 50MG EXT REL TAB PO SCH ×2 (08:05→20:12)
--- NOTE | 2021-09-28 10:21 | Hospitalist Progress Note ---
Date of Service September 28, 2021 Assessment & Plan (1) Acute alteration in mental status: Plan: Altered mental status Acute metabolic encephalopathy DD: secondary to medications (cyclobenzaprine, Melatonin), Possible Seizure with Aaron's paralysis Patient's family noticed: Generalized shaking associated with urinary incontinence prior to hospitalization. -CT head, CTA Head/Neck:There is no hemorrhage, mass effect, or evidence of acute territorial ischemia by CT criteria. The distal internal carotid arteries, the vertebral arteries, and the basilar artery demonstrate a mildly beaded appearance. This is nonspecific but can be seen in the setting of fibromuscular dysplasia. Otherwise unremarkable CT angiograms of the head and neck. --EEG:Mild to moderate nonspecific generalized nonfocal encephalopathy without potentially epileptogenic features -Cannot obtain MRI due to pacemaker incompatibility -Negative toxicology screen -Repeat CT Head - no evidence of acute stroke Continue Keppra 500 mg twice daily. Will continue this on discharge Repeat EEG suggestive of mild generalized nonfocal encephalopathy without potentially epileptogenic features could still reflect effects of protracted postictal state and does not exclude a diagnosis of seizure disorder Repeat CT head unremarkable Continue thiamine Continue to hold any sedating meds, avoid narcotics. DC flexeril on discharge Yesterday, I spoke with son Butch over the phone. He reported that since Thanks in 2020, they have noticed patient occasionally gets confused as to how to operate her phone or veers off normal conversation with mixups. However, nothing really as bad as the incident that led to presentation. This makes neurocognitive disorder a possibility. Patient is currently on 1:1 not for aggressive behavior but for wandering and removing leads. Neurologist alma noted Patient will follow up with Neuro outpatient 1 of blood Cx bottles-CONS. Likely contaminant Repeat blood cultures Negative Off antibiotics (2) Anticoagulated on Coumadin: (3) Atrial fibrillation with RVR: Plan: Echo reviewed On IV diltiazem>>> transition to Metoprolol 100 mg BID IV metoprolol as needed Metal Hanging Supervisor evaluation and recommendations noted Coumadin was transitioned to Eliquis Monitor electrolytes (4) Elevated CPK: Plan: CPK levels better Received IV fluids (5) Hypercalcemia: Plan: Calcium levels near normal Elevated PTH as an outpatient Other work-up as outpatient (6) HTN (hypertension): Plan: Stable Continue lisinopril (7) CKD (chronic kidney disease) stage 3, GFR 30-59 ml/min: Plan: Cr at baseline Monitor Plan: DVT Px: Eliquis Code Status DNI/DNR as per POA Downgrade from PCU to med tele Awaiting placement Admission and Anticipated Discharge Date Admission Date: September 21, 2021 Subjective 76 y/o female with a PMH of tachy-melissa syndrome s/p PPM, permanent atrial fibrillation on chronic anticoagulation with warfarin, s/p TAVR, HTN, CKD3, dyslipidemia, and diastolic heart failure who was brought to the ED via EMS due to worsening acute confusion Patient seen and examined today. Denies any complaints at this time Denies any headache, dizziness Denies congestion, sore throat.cough today Denies any chest pain, shortness of breath Denies any nausea, vomiting, abdominal pain, diarrhea Denies dysuria, frequency, urgency Physical Exam Constitutional: + well hydrated; no acute distress Eyes: PERRL, conjunctivae normal, anicteric sclerae ENMT: external ear and nose normal, oropharynx normal Respiratory: normal respiratory effort, lungs clear to auscultation Cardiovascular: Rate/Rhythm: + irregularly irregular S1 S2 Gastrointestinal (Abdomen): normal bowel sounds, soft, nontender, no hepatosplenomegaly Musculoskeletal: no cyanosis or clubbing, extremities motor strength 5/5 Neurologic: PERRL, EOMI, accommodation nl, no face palsy, no dysarthria Psychiatric: A+Ox3, euthymic affect Results & Data Results & Data ([facility]) Vital Signs (Past 12 Hours) Vital Signs Temp Pulse Pulse Resp BP BP Pulse Ox 09/28/21 06:58 36.4 C L 103 H 16 112/82 92 09/28/21 03:09 36.6 C 80 17 126/84 95 09/27/21 23:51 100 H 09/27/21 23:06 36.7 C 83 17 171/90 H 92 Laboratory Results Abnormal lab results 09/28/21 Range/Units 06:14 MCHC 31.4 L (32-36) g/dL (1) HTN (hypertension) Hypertension type: unspecified Qualified Code(s): I10 - Essential (primary) hypertension
--- NOTE | 2021-09-28 10:36 | Cardiology Progress Note ---
Date of Service September 28, 2021 Assessment & Plan (1) Acute encephalopathy: (2) S/P TAVR (transcatheter aortic valve replacement): (3) Paroxysmal a-fib: Plan: She is afebrile, 1/2 blood cultures notable for gram-positive cocci (perhaps contaminant) repeat cultures performed 09/24/2021, without growth thus far. Agree with monitoring the patient off of antibiotics, vancomycin discontinued by the primary service. Continue Eliquis. Continue metoprolol succinate 100 milligrams twice daily, and digoxin for rate control. Admission and Anticipated Discharge Date Admission Date: September 21, 2021 Subjective Patient seen in cardiology follow-up. She is in bed. Her mental status continues to improve, although still not back to baseline. Telemetry reveals atrial fibrillation, rates are a little bit higher today, about 100 beats per minute. Review of Systems Review of Systems: All systems reviewed & are unremarkable except as noted in HPI & below Physical Exam Constitutional: + ill appearing and + altered mental status Respiratory: normal respiratory effort, lungs clear to auscultation Cardiovascular: Rate/Rhythm: + tachycardic and + irregularly irregular Heart Sounds: no murmur Extremities: no edema Chest (Breasts): Chest: + pacemaker (pacer pocket, clean , dry, intact) Results & Data ([facility]) Vital Signs (Past 12 Hours) Vital Signs Temp Pulse Pulse Resp BP BP Pulse Ox 09/28/21 06:58 36.4 C L 103 H 16 112/82 92 09/28/21 03:09 36.6 C 80 17 126/84 95 09/27/21 23:51 100 H 09/27/21 23:06 36.7 C 83 17 171/90 H 92 Laboratory Results CBC 09/28/21 Range/Units 06:14 WBC 8.08 (4.8-10.8) K/uL RBC 4.66 (4.2-5.4) M/uL Hgb 12.8 (12.0-16.0) g/dL Hct 40.7 (37-47) % Plt Count 293 (130-400) K/uL Comprehensive Metabolic Panel 09/28/21 Range/Units 06:14 Sodium 140 (136-145) mmol/L Potassium 3.7 (3.5-5.1) mmol/L Chloride 107 (98-107) mmol/L Carbon Dioxide 28 (21-32) mmol/L BUN 14 (7-18) mg/dl Creatinine 0.80 (0.6-1.2) mg/dl Glucose 91 (70-99) mg/dl Calcium 9.5 (8.5-10.1) mg/dl Intake and Output 09/27/21 09/28/21 09/28/21 22:59 06:59 14:59 Intake Total 50 / 650 Output Total Balance 50 / 650 - Intake: Oral 50 / 650 Output: # Bowel Movements Other: # Unmeasured Voids Weight 75.9 kg Weight Measurement Method Built in [facility]
[2021-09-28] MEDS: POTASSIUM CHLORIDE 10 MEQ TABCR PO SCH (13:42)
--- NOTE | 2021-09-28 16:16 | Communication Note ---
Date of Service: September 28, 2021 Aman is about the same as she was yesterday. 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 and with a protracted post ictal confusional state Unfortunately I do not know the patient's baseline mental status and cannot establish whether or not her current condition is actually her baseline If so and we may be dealing with a significant underlying cognitive impairment that was exacerbated by seizure activity It is clear however that she should not be operating a motor vehicle We are arranging for her to be followed in our office and I really do not think we need to do a 72-hour EEG in this setting is a diagnosis is fairly clear-cut The only issue is whether or not the Keppra is going to produce significant amount of irritability or personality change and hopefully during our upcoming outpatient visit a family member who knows her will be in attendance I can review some of the issues specifically to define her baseline mental status prior to this event Without MRI technology unfortunately absolutely cannot state that she did not have shower or small emboli that would only have been detected by MRI and may be very unlikely to show any changes on CT scan Rahul Huber MD
[2021-09-28] MEDS: DIGOXIN 0.125 MG TAB PO SCH (16:37)
[2021-09-29] MEDS: POTASSIUM CHLORIDE 10 MEQ TABCR PO SCH (08:13)
[2021-09-29] MEDS: THIAMINE HCL 100 MG TAB PO SCH (08:13)
[2021-09-29] MEDS: APIXABAN 5 MG TABLET PO SCH (08:13)
[2021-09-29] MEDS: METOPROLOL SUCC 50MG EXT REL TAB PO SCH (08:13)
[2021-09-29] MEDS: levETIRAcetam 500 MG TAB PO SCH (08:13)
[2021-09-29] MEDS: lisinopril 5 MG TAB PO SCH (08:13)
[2021-09-29 08:31] LABS: Calcium 9.6 mg/dl (8.5-10.1); Creatinine Clr Calc Pharmacy 51.1 ml/min; Est GFR (African American) 68.7 ml/min; Est GFR (Non-African American) 59.3 ml/min; Potassium 3.8 mmol/L (3.5-5.1)
--- NOTE | 2021-09-29 12:28 | Cardiology Progress Note ---
Date of Service September 29, 2021 Assessment & Plan (1) Acute encephalopathy: (2) S/P TAVR (transcatheter aortic valve replacement): (3) Paroxysmal a-fib: Plan: She is afebrile, 1/2 blood cultures notable for gram-positive cocci (perhaps contaminant) repeat cultures performed 09/24/2021, without growth thus far. Agree with monitoring the patient off of antibiotics, vancomycin discontinued by the primary service. Continue Eliquis. Continue metoprolol succinate 100 milligrams twice daily, and digoxin for rate control. Admission and Anticipated Discharge Date Admission Date: September 21, 2021 Subjective As noted, somnolence and overall mental status improved compared to presentation, but still with cognitive impairment, and certainly not a candidate for living independently at present. Telemetry reveals ongoing atrial fibrillation, rates down to the 80s to 90s with addition of digoxin yesterday 09/28/2021. Physical Exam Physical Exam: Temp Pulse Resp BP Pulse Ox 36.6 C 60 16 135/88 90 09/29/21 07:16 09/29/21 07:16 09/29/21 07:16 09/29/21 07:16 09/29/21 07:16 Constitutional: + ill appearing and + altered mental status Respiratory: normal respiratory effort, lungs clear to auscultation Cardiovascular: Rate/Rhythm: + tachycardic and + irregularly irregular Hear t Sounds: no murmur Extremities: no edema Chest (Breasts): Chest: + pacemaker (pacer pocket, clean , dry, intact) Results & Data ([facility]) Vital Signs (Past 12 Hours) Vital Signs Temp Pulse Resp BP Pulse Ox 09/29/21 07:16 36.6 C 60 16 135/88 90 09/29/21 04:23 36.7 C 85 16 126/77 92 Laboratory Results Comprehensive Metabolic Panel 09/29/21 Range/Units 07:34 Sodium 140 (136-145) mmol/L Potassium 3.8 (3.5-5.1) mmol/L Chloride 108 H (98-107) mmol/L Carbon Dioxide 27 (21-32) mmol/L BUN 16 (7-18) mg/dl Creatinine 0.93 (0.6-1.2) mg/dl Glucose 102 H (70-99) mg/dl Calcium 9.6 (8.5-10.1) mg/dl Intake and Output 09/28/21 09/29/21 09/29/21 22:59 06:59 14:59 Other: Other Intake Source Sips Sips # Unmeasured Voids 1 Weight 74.3 kg Weight Measurement Method Built in [facility]
[2021-09-29 13:05] VITALS: TEMP 98.2
[2021-09-29 15:16] VITALS: O2SAT 93
[2021-09-29] MEDS: DIGOXIN 0.125 MG TAB PO SCH (16:40)
--- NOTE | 2021-09-29 16:55 | Discharge Summary ---
Date of Service September 29, 2021 Admission HPI Per Admitting Provider This is a 76 y/o female with a PMH of tachy-melissa syndrome s/p PPM, permanent atrial fibrillation on chronic anticoagulation with warfarin, s/p TAVR, HTN, CKD3, dyslipidemia, and diastolic heart failure who was brought to the ED today via EMS due to worsening acute confusion. History is obtained from [id number] at bedside since pt is currently sedated. Per RAMESH, pt has become increasingly confused over the past three days. She was seen by her PCP office two days ago and labs were collected. MRI brain was ordered but had not yet been scheduled. That night when RAMESH brought pt home after the appt she noti tamra that pt had a bottle of cyclobenzaprine which pt reported she is taking at least daily. Pt took melatonin 5 mg that night and went to bed. Yesterday, RAMESH called pt to check on her and encourage her to eat. Pt seemed more confused so RAMESH went to the house to check on her. She found the pt's car running in the garage with the door closed but pt was not in the car. Her appetite has been decreased but she did eat yesterday afternoon and seemed brighter and more alert in the evening. Around 8:30 pm yesterday, RAMESH helped pt turn everything off and put her to bed. Around 12:30 pm today, the pt's son went over to check on pt and found her lying on the floor, smelling of urine and with dog feces on her shoulder. The lights and TV were on and pt's wallet was out when everything was put away and off last night indicating that at some point pt appears to have gotten up and been moving around her home. Initially, when found on the floor, pt was very quiet and seemed to be barely breathing at times. Family called EMS. When they attempted to move pt onto the stretcher she became combative and had to be sedated to safely transport and evaluate her. Currently, she remains sedated in the ED. RAMESH reports pt will open her eyes occasionally but is not speaking, does not make eye contact. Family does not recall similar episodes prior. They are unsure if pt is taking her medication correctly, specifically the warfarin and the metoprolol. There was concern that pt had recently decreased the metoprolol on her own so she was supposed to increase it back to 100 mg BID when she was seen two days ago. Admission Exam Per Admitting Provider Constitutional: sleeping - arouses to stimulation but not responding to questions Eyes: + anicteric sclerae Neck: trachea midline Respiratory: no respiratory distress and no labored breathing Auscultation: lungs clear to auscultation bilaterally; no rales, no rhonchi and no wheezes Cardiovascular: Rate/Rhythm: + tachycardic and + irregularly irregular Vessels: radial pulses present Extremities: no pedal edema Gastrointestinal (Abdomen): Inspection/Auscultation: normal bowel sounds; abdomen not distended Percussion/Palpation: abdomen soft Skin: no rashes and no jaundice Neurologic: + obtunded Principal Diagnosis Altered mental status Acute metabolic encephalopathy Atrial fibrillation with rapid ventricular rate Discharge Exam Constitutional + well hydrated; no acute distress Eyes PERRL, conjunctivae normal, anicteric sclerae ENMT external ear and nose normal, oropharynx normal Respiratory normal respiratory effort, lungs clear to auscultation Cardiovascular Rate/Rhythm: + irregularly irregular S1 S2 Gastrointestinal (Abdomen) normal bowel sounds, soft, nontender, no hepatosplenomegaly Musculoskeletal no cyanosis or clubbing, extremities motor strength 5/5 Neurologic PERRL, EOMI, accommodation nl, no face palsy, no dysarthria Psychiatric Alert and oriented to person, place, month/year. Euthymic affect Discharge Data Allergies Allergy/AdvReac Type Severity Reaction Status Date / Time furosemide Allergy Unknown RASH Verified 05/24/21 13:32 lactose Allergy Unknown Unknown Unverified 05/24/21 13:32 Fdekpmr-TTV-OtV Reductase Allergy Unknown . Verified 05/24/21 13:32 Inhibitor [Dkvcqkr-Wrr-Plx Reductase Inhibitor] enoxaparin Allergy hematoma, Verified 09/21/21 14:58 skin sloughing ezetimibe AdvReac Unknown nausea,diar Verified 05/24/21 13:32 rabia Consultations 09/21/21 15:58 ED Decision to Admit Stat 09/22/21 08:00 Consult Cardiology Routine 09/22/21 10:49 Consult Neurology Routine Ordered Studies 09/21/21 14:08 CT cervical spine wo con Stat CT head/brain wo con Stat 09/22/21 13:37 CT angio head w con Urgent CT angio neck with con Urgent CT head/brain wo con Urgent 09/25/21 10:29 CT head/brain wo con Routine Hospital Course (1) Acute alteration in mental status: Altered mental status Acute metabolic encephalopathy DD: secondary to medications (cyclobenzaprine, Melatonin), Possible Seizure with Aaron's paralysis Patient's family noticed: Generalized shaking associated with urinary incontinence prior to hospitalization. -CT head, CTA Head/Neck:There is no hemorrhage, mass effect, or evidence of acute territorial ischemia by CT criteria. The distal internal carotid arteries, the vertebral arteries, and the basilar artery demonstrate a mildly beaded appearance. This is nonspecific but can be seen in the setting of fibromuscular dysplasia. Otherwise unremarkable CT angiograms of the head and neck. --EEG:Mild to moderate nonspecific generalized nonfocal encephalopathy without potentially epileptogenic features -Cannot obtain MRI due to pacemaker incompatibility -Negative toxicology screen -Repeat CT Head - no evidence of acute stroke Was started on Keppra. Continue Keppra 500 mg twice daily on discharge Repeat EEG suggestive of mild generalized nonfocal encephalopathy without potentially epileptogenic features could still reflect effects of protracted postictal state and does not exclude a diagnosis of seizure disorder Repeat CT head unremarkable Continue to hold any sedating meds, avoid narcotics. Flexeril discontinued On 09/27/21, I spoke with son Butch over the phone. He reported that since [facility] in 2020, they have noticed patient occasionally gets confused as to how to operate her phone or veers off normal conversation with mixups. However, nothing really as bad as the incident that led to presentation. This makes neurocognitive disorder a possibility. Patient was on 1:1 not for aggressive behavior but for wandering and removing leads. Was evaluated by Neurologist Patient to continue Keppra Needs to follow up with neurologist outpatient for further eval Patient not allowed to drive or operate heavy machinery (2) Anticoagulated on Coumadin: (3) Atrial fibrillation with RVR: Was initially on IV diltiazem and transitioned to metoprolol Started on digoxin Evaluated by Cardiology Anticoagulation changed from warfarin to eliquis (4) Elevated CPK: (5) Hypercalcemia: Calcium levels near normal Elevated PTH as an outpatient Other work-up as outpatient (6) HTN (hypertension): Controlled Continue lisinopril (7) CKD (chronic kidney disease) stage 3, GFR 30-59 ml/min: Cr at baseline Monitor Discharged to SNF Total Time Total Time Spent Total Time Spent (In Minutes): 40 Total Time Includes: Examination of the Patient, Discharge Planning, Medication Reconciliation, Communication With Other Providers and Other Discharge Plan Discharge Items Patient Disposition: Transfer [facility] Reason For Visit: CONFUSION, AFIB W/ RVR Discharge Diagnosis: Altered mental status Acute metabolic encephalopathy Atrial fibrillation with rapid ventricular rate this Activity: As commented below Activity Comment: As recommended by physical therapist Non-emergency contact: Primary Care Provider, [employer] and Neurologist Call non-emergency contact if: you have any medication questions and your symptoms worsen Follow-up/Referrals: Gaye Tolbert PA-C [Physician Polytechnic Registrar] - (Date & Time 10/25/2021 11:20 AM Provider Gaye Tolbert PA-C Department Neurology [facility] ) Gaye Lane DO [Physician] - (Date & Time 10/24/2021 12:00 PM Provider [facility] L[facility] Sacha Lora MD [Primary Care Provider] - Diet: Heart Healthy Addtl Attending Provider Instructions: Mrs. Mason You are brought to the hospital due to change in mental status. You were extensively evaluated with multiple scans, infectious work-up and EEG. You are so empirically on antibiotics. You were evaluated by neurologist as well and started on Keppra due to possibility of seizure. Please avoid any driving or operating any heavy machinery until cleared by the neurologist. It is very important that you follow-up with neurology outpatient for further evaluation. You also had Atrial fibrillation with rapid ventricular rate and you were evaluated by cardiology. He was started on digoxin for better rate control. You were also started on lisinopril for better blood pressure control. Your blood thinner warfarin/Coumadin was changed to Eliquis. It is important that you follow-up with cardiology outpatient. It was a pleasure taking care of you. Pending Studies at Discharge: No Stand-Alone Forms: My [facility] Skilled Items Patient informed of condition?: Yes DNR: Yes Discharge Level of Care: Skilled Communicable Disease: No Discharge Prognosis: Stable Lines: None Urinary Catheter: No Medications and DC Order Prescriptions: New levetiracetam [Keppra] 500 mg Tablet 500 mg PO BID Qty: 60 RF: 0 lisinopril [Zestril] 5 mg Tablet 5 mg PO QAM Qty: 30 RF: 0 digoxin [Digitek] 125 mcg (0.125 mg) Tablet 0.125 mg PO DAILY@1600 Qty: 30 RF: 0 Eliquis 5 mg Tablet 5 mg PO BID Qty: 60 RF: 0 Continued glucosamine-chondroitin 500-400 mg capsule 2 cap PO DAILY RF: 0 multivitamin Tablet 1 tab PO DAILY RF: 0 acetaminophen [Tylenol] 325 mg Tablet 325 mg PO QID PRN (Reason: Pain) RF: 0 Prevagen 10 mg PO DAILY RF: 0 metoprolol succinate 100 mg tablet extended release 24 hr 100 mg PO BID Qty: 60 RF: 0 Discontinued warfarin 2.5 mg Tablet 2.5 mg PO UD RF: 0 loratadine 10 mg Tablet 10 mg PO DAILY RF: 0 cyclobenzaprine 5 mg tablet 5 mg PO TID PRN (Reason: Muscle Spasm) RF: 0 Discharge Orders: Discharge Order (Routine); Ordered 09/29/21 Ordered By: Ritu Padilla Admission Data Admit Date/Time: 09/21/21 16:31 Attending Provider: Ritu Padilla I. Admit Provider: Alvaro Lau Primary Care Provider: Sacha Lora Other Providers: Devonte Mensah [place] ; [place] ; Alvaro Lau ; Andrea Scott ; Rahul Huber Other Interventions: Discharge Summary Assessment (RN) Last Done: 09/29/21 19:26
[2021-09-29 19:32] VITALS: BP 126/84; PULSE 91
== END 2021-09-29 19:41 | DRG 91 ==
LOC: ED 13:53 → 2S 16:31 → SUATTDRO 16:31 → 2S 19:57

== ENCOUNTER 2023-11-20 22:02 | Observation (INO) ==
--- NOTE | 2023-11-20 23:10 | Emergency Department Note ---
Impression & Plan Pacemaker, Feels feverish, Atrial fibrillation, Elevated troponin ED Provider Note NAME: VIJAY MEDRANO AGE: 78 SEX: F ARRIVES VIA: Walk-In INFORMANT: Patient ED PROVIDER(S): Rich Moore MD CHIEF COMPLAINT: Feverishness, weakness, pacemaker insertion site pain after battery exchange. PLAN: Disposition: Admit MEDICAL DECISION MAKING: The patient is a pleasant 78-year-old woman with a past medical history of CKD, history of aortic valve replacement/TAVR, hypertension, hyperlipidemia, diastolic heart failure, paroxysmal atrial fibrillation on Eliquis who presents to the emergency department via walk-in accompanied by her daughter for evaluation of feverishness and feeling unwell with increased pain in her left upper chest after having a pacemaker generator change yesterday at this facility. Patient reports that she has had battery changes in the past and were not painful like this and so she was worried there could be an infection. She denies any chest pain, shortness of breath, nausea, vomit, diarrhea or urinary symptoms. She does not feel she is retaining any fluid and did take her Bumex today. The patient reports she has been holding her Eliquis since the day before her generator exchange and was to continue holding her Eliquis until completion of a scheduled ablation for atrial fibrillation which was set for Saturday. On my evaluation the patient is in no acute distress, afebrile stable vital signs. She appears euvolemic. Lungs are clear. Examination of the patient's left upper chest post surgical dressing demonstrates no surrounding erythema warmth, tenderness or induration surrounding the site itself. Full Aquacel surgical bandage was not removed given she reports it was to remain in place until Saturday. EKG demonstrates atrial fibrillation without overt acute ischemia. CXR negative for acute cardiopulmonary process per my personal preliminary review/interpretation. Interrogation of the patient's PPM was reviewed with epic community service technician and device is functioning normally without acute events since generator change yesterday morning. WBC within normal limits without neutrophilia or left shift. HCT within normal limits. Platelets within normal limits. Chemistry without metabolic acidosis. Lactic acid 1.7, within normal limits. Electrolytes LFTs unremarkable. High- sensitivity troponin 25.4 with delta high-sensitivity troponin 25.8, essentially unchanged, nonspecific and BNP 350, nonspecific in setting of patient's history of atrial fibrillation. Lipase not elevated. Procalcitonin is undetectable. Respiratory BioFire was negative. UA without convincing evidence of infection. I did review with the patient option for escalation of care and admission for observation given her report of feverishness, malaise, and pain at the site, which is atypical for her and reports never experienced after having a generator change in the past. Initially, the patient was resistance against admission but ultimately did agree with this plan. Blood cultures were obtained and empiric treatment with IV ceftriaxone provided. Case was discussed with Dr. Black [facility], who will evaluate the patient for admission. Further management per admitting team. Triage Nursing notes reviewed and agree them. Prior/external medical records reviewed Vital Signs: reviewed Differential diagnosis: Viral syndrome, otitis, pharyngitis, pneumonia, influenza, meningitis, urinary tract infection, sepsis, bacteremia, as well as other pathologies. ER treatment provided: See below. Diagnostics interpreted by me: ECG: Atrial fibrillation, 85 bpm, no ectopy, right bundle branch block, no overt ST elevation, QTc 459, QRS 152. Cardiac Monitoring: An order for continuous cardiac monitoring was placed and demonstrated atrial fibrillation, 85 bpm, no ectopy. Laboratory studies: See below Imaging studies: See below Consultation(s): Case was discussed with Dr. Black [facility], who will evaluate the patient for admission. HPI: The patient is a pleasant 78-year-old woman with a past medical history of CKD, history of aortic valve replacement/TAVR, hypertension, hyperlipidemia, diastolic heart failure, paroxysmal atrial fibrillation on Eliquis who presents to the emergency department via walk-in accompanied by her daughter for evaluation of feverishness and feeling unwell with increased pain in her left upper chest after having a pacemaker generator change yesterday at this facility. Patient reports that she has had battery changes in the past and were not painful like this and so she was worried there could be an infection. She denies any chest pain, shortness of breath, nausea, vomit, diarrhea or urinary symptoms. She does not feel she is retaining any fluid and did take her Bumex today. The patient reports she has been holding her Eliquis since the day before her generator exchange and was to continue holding her Eliquis until completion of a scheduled ablation for atrial fibrillation which was set for Saturday. ROS: See above HPI for pertinent positives & negatives. A total of 10 systems reviewed and were otherwise negative. VITALS:See Below PHYSICAL EXAMINATION: GENERAL: Awake, alert, in no distress HENT: Normocephalic, atraumatic. Oropharynx unremarkable. EYES: Normal conjunctiva. Sclera non-icteric. NECK: Supple. No nuchal rigidity. FROM. No JVD. RESPIRATORY: Clear to auscultation. CARDIAC: Regular rate, irregular rhythm. Extremities warm and well perfused. Pulses equal. ABDOMEN: Soft, non-distended. No tenderness to palpation. No rebound or guarding. No masses. RECTAL: Deferred. MUSCULOSKELETAL: Chest examination reveals no tenderness. Left upper chest post Aquacel surgical bandage surgical dressing demonstrates no surrounding erythema warmth, tenderness or induration surrounding the site. The back is symmetrical on inspection without obvious abnormality. There is no CVA tenderness to palpation. No joint edema. LOWER EXTREMITIES: Calves are equal size bilaterally and non-tender. No edema. No discoloration. NEURO: Normal sensorium. No sensory or motor deficits noted. SKIN: No rash or jaundice noted. Rich Moore MD Past Med/Surg History Medical History Third degree AV block CKD (chronic kidney disease) stage 3, GFR 30-59 ml/min History of pacemaker Tachy-melissa syndrome Permanent atrial fibrillation Dyslipidemia Diastolic heart failure Paroxysmal a-fib Pacemaker malfunction (05/26/14) HTN (hypertension) Surgical History History of umbilical hernia repair History of cataract surgery History of aortic valve replacement S/P AVR (aortic valve replacement) Hx of tonsillectomy History of hysterectomy History of radiofrequency ablation procedure for cardiac arrhythmia Family History Other Coronary heart disease Diabetes Social History Smoking Status: Never smoker Second Hand Exposure: No; Do You Dip or Chew Tobacco: No; Hx Alcohol Use: No Hx Substance Use: No Preferred Language: Kazakh Communication Ability: Effective Fare Register Repairer Required: No Beliefs That Will Affect Care: None marital status: Single Current Living Situation: Alone current occupational status: retired How many Children do You have: 2 Feels Safe at Home: Yes Assistive Devices: None Allergies Allergies Allergy/AdvReac Type Severity Reaction Status Date / Time enoxaparin Allergy Intermediate hematoma, Verified 11/20/23 23:15 skin sloughing furosemide Allergy Intermediate RASH Verified 11/20/23 23:15 lactose Allergy Intermediate Gastrointestinal Verified 11/20/23 23:15 Upset ezetimibe AdvReac Intermediate nausea,diar Verified 11/20/23 23:15 rabia Aipeqcv-PYT-YcB Reductase AdvReac Intermediate LEG CRAMPS Verified 11/20/23 23:15 Inhibitor [Mbfzaey-Ntl-Ubs Reductase Inhibitor] Home Meds Home Medications Medication Instructions Recorded Confirmed glucosamine-chondroitin 500 mg-400 2 cap PO DAILY 05/11/19 11/20/23 mg capsule acetaminophen 325 mg tablet 325 mg PO QID PRN Pain 09/21/21 11/20/23 (Tylenol) multivitamin 1 tab PO DAILY 09/21/21 11/20/23 bumetanide 0.5 mg tablet 0.5 mg PO DAILY 11/19/23 11/20/23 empagliflozin 25 mg tablet 25 mg PO DAILY 11/19/23 11/20/23 (Jardiance) levetiracetam 500 mg tablet 250 mg PO BID 11/19/23 11/20/23 (Keppra) metoprolol succinate 100 mg 150 mg PO DAILY 11/19/23 11/20/23 tablet,extended release 24 hr Previous Rx's Medication Instructions Recorded apixaban 5 mg tablet (Eliquis) 5 mg PO BID #60 tabs 09/29/21 Results & Data (ED) Vital Signs Vital Signs - 24 hr 11/20/23 22:16 11/20/23 22:28 11/20/23 22:28 Temperature 37.4 C Temperature Source Temporal Artery Scan Pulse Rate 88 Pulse Rate [Apical] 88 Respiratory Rate 18 Respiratory Effort / Characteristics Non-Labored Spontaneous Respiratory Depth Normal Blood Pressure 146/104 H Blood Pressure Mean 118 Pulse Oximetry 91 97 Oxygen Delivery Method Room Air Room Air Room Air Sepsis Recent Fever Within 48 Hours No Sepsis New/Unexplained Change in Mental Status No Sepsis Action Taken by Nursing No Action Required 11/20/23 22:35 11/20/23 23:54 11/21/23 00:00 Temperature Temperature Source Pulse Rate 84 88 85 Pulse Rate [Apical] Respiratory Rate 18 18 Respiratory Effort / Characteristics Respiratory Depth Blood Pressure 142/74 H 139/94 Blood Pressure Mean 96 109 Pulse Oximetry 91 92 Oxygen Delivery Method Sepsis Recent Fever Within 48 Hours Sepsis New/Unexplained Change in Mental Status Sepsis Action Taken by Nursing 11/21/23 00:19 11/21/23 00:30 11/21/23 01:00 Temperature 37.0 C Temperature Source Pulse Rate 83 86 Pulse Rate [Apical] Respiratory Rate 18 16 Respiratory Effort / Characteristics Respiratory Depth Blood Pressure 120/93 116/83 Blood Pressure Mean 102 94 Pulse Oximetry 95 93 91 Oxygen Delivery Method Room Air Sepsis Recent Fever Within 48 Hours Sepsis New/Unexplained Change in Mental Status Sepsis Action Taken by Nursing 11/21/23 01:30 11/21/23 02:34 Temperature Temperature Source Pulse Rate 83 81 Pulse Rate [Apical] Respiratory Rate 20 Respiratory Effort / Characteristics Respiratory Depth Blood Pressure 124/94 Blood Pressure Mean 104 Pulse Oximetry 92 Oxygen Delivery Method Sepsis Recent Fever Within 48 Hours Sepsis New/Unexplained Change in Mental Status Sepsis Action Taken by Nursing Laboratory Data Attestation: I reviewed the patient's lab results. 11/20/23 23:45 11/20/23 23:45 Lab Results 11/20/23 11/21/23 11/21/23 Range/Units 23:45 01:20 01:39 WBC 7.72 (4.8-10.8) K/ul RBC 4.77 (4.20-5.40) M/uL Hgb 11.8 L (12.0-16.0) g/dl Hct 38.8 (37.0-47.0) % MCV 81.3 (80.0-100.0) fL MCH 24.7 L (25.0-34.0) pg MCHC 30.4 L (32.0-36.0) g/dL RDW Std Deviation 48.6 H (36.4-46.3) fL RDW Coeff of Bob 16.5 H (11.5-14.5) % Plt Count 211 (130-400) K/uL MPV 9.7 (9.4-12.4) fL Immature Gran % (Auto) 0.3 % Neut % (Auto) 66.1 % Lymph % (Auto) 18.1 % Emery % (Auto) 13.2 % Eos % (Auto) 1.9 % Baso % (Auto) 0.4 % Neut # (Auto) 5.10 (1.40-6.50) K/uL Lymph # (Auto) 1.40 (1.20-3.40) K/uL Emery # (Auto) 1.02 H (0.11-0.59) K/uL Eos # (Auto) 0.15 (0.00-0.50) K/uL Baso # (Auto) 0.03 (0.00-0.20) K/uL Immature Gran # (Auto) 0.02 (0.01-0.20) K/uL PT 11.8 (9.0-12.0) Seconds INR 1.1 (0.9-1.1) Sodium 139 (136-145) mmol/L Potassium 4.1 (3.5-5.1) mmol/L Chloride 105 (98-107) mmol/L Carbon Dioxide 28 (21-32) mmol/L Anion Gap 6 (3-11) BUN 16 (6-23) mg/dl Creatinine 1.10 (0.6-1.2) mg/dl Est Cr Clr Drug Dosing 43.4 ml/min Est GFR ( Amer) 55.3 ml/min Est GFR (Non-Af Amer) 47.7 ml/min BUN/Creatinine Ratio 14.5 (10-20) Glucose 105 H (70-99(Fasting)) mg/dl Lactate 0.7 (0.4-2.0) mmol/L Calcium 9.5 (8.6-10.3) mg/dl Phosphorus 3.5 (2.5-4.9) mg/dl Magnesium 2.0 (1.7-2.4) mg/dl Total Bilirubin 1.0 (0.2-1.0) mg/dl Direct Bilirubin 0.2 (0-0.2) mg/dl AST 20 (13-39) U/L ALT 9 (7-52) U/L Alkaline Phosphatase 94 (34-104) U/L Troponin I High Sens 25.4 H 25.8 H (0-14) pg/ml B-Natriuretic Peptide 350 H (0-100) pg/ml Total Protein 6.7 (6.0-8.3) gm/dl Albumin 3.9 (3.4-5.0) gm/dl Lipase 18 (11-82) U/L Procalcitonin < 0.02 (0-0.5) ng/ml Urine Color Yellow Urine Appearance Clear (Clear) Urine pH 6.0 (4.5-7.5) Ur Specific [place] 1.030 (1.000-1.030) Urine Protein 2+ H (Negative) Urine Glucose (UA) 3+ H (Negative) Urine Ketones Trace H (Negative) Urine Blood Negative (Negative) Urine Nitrite Negative (Negative) Urine Bilirubin Negative (Negative) Urine Urobilinogen Negative (Negative) Ur Leukocyte Esterase Trace H (Negative) Urine WBC (Auto) 10-30 H (0-5) /hpf Urine RBC (Auto) 0-4 (0-4) /hpf U Hyaline Cast (Auto) 1-5 (0-5) /lpf U Epithel Cells (Auto) >30 H (0-5) /lpf Urine Bacteria (Auto) Negative (Negative) Adenovirus (PCR) Not Detected (NotDetected) B. pertussis DNA (PCR) Not Detected (NotDetected) B.parapertussis DNA PCR Not Detected (NotDetected) C. pneumoniae DNA (PCR) Not Detected (NotDetected) Coronavirus OC43 (PCR) Not Detected (NotDetected) Coronavirus HKU1 (PCR) Not Detected (NotDetected) Coronavirus 229E (PCR) Not Detected (NotDetected) SARS-CoV-2 (PCR) Not Detected (NotDetected) Coronavirus NL63 (PCR) Not Detected (NotDetected) Human Metapneumovir PCR Not Detected (NotDetected) Influenza Type A (PCR) Not Detected (NotDetected) Influenza Type B (PCR) Not Detected (NotDetected) M. pneumoniae (PCR) Not Detected (NotDetected) Parainfluenza 1 (PCR) Not Detected (NotDetected) Parainfluenza 2 (PCR) Not Detected (NotDetected) Parainfluenza 3 (PCR) Not Detected (NotDetected) Parainfluenza 4 (PCR) Not Detected (NotDetected) RSV (PCR) Not Detected (NotDetected) Entero/Rhino (PCR) Not Detected (NotDetected) Administered Medications Sodium Chloride (Nss) 1,000 mls @ 80 mls/hr IV .[id number] HITESH Stop: 11/21/23 16:15 Last Admin: 11/21/23 03:57 Dose: 80 mls/hr Documented By: NAGA Discontinued Medications Acetaminophen (Ofirmev) 1,000 mg in 100 mls @ 400 mls/hr IV NOW STA Stop: 11/20/23 23:42 Last Infusion: 11/21/23 00:15 Dose: Infused Documented By: Admin: 11/20/23 23:58 Dose: 400 mls/hr Documented By: NAGA Ceftriaxone Sodium (Rocephin) 2,000 mg in 50 mls @ 100 mls/hr IV NOW STA Stop: 11/21/23 02:18 Last Infusion: 11/21/23 02:27 Dose: Infused Documented By: Admin: 11/21/23 01:57 Dose: 100 mls/hr Documented By: NAGA Discharge Plan Visit Data Chief Complaint: Cardiac Assessment Stated Complaint: PACEMAKER COULDN'T GET A READING, NEEDS REPLACED ED Provider: Rich Moore Discharge Problem: Pacemaker, Feels feverish, Atrial fibrillation, Elevated troponin Patient Disposition: Admitted As Inpatient Discharge Instructions Interventions: ED Discharge Assessment Last Done: 11/21/23 03:46 Discharge Problem: Atrial fibrillation Qualifiers: Atrial fibrillation type: unspecified Qualified Code(s): I48.91 - Unspecified atrial fibrillation
[2023-11-20] MEDS: ACETAMINOPHEN 1,000 MG/100 ML VIAL IV STA (23:58)
[2023-11-21 00:04] LABS: Basophils # (auto) 0.03 K/uL (0.00-0.20); Basophils % (auto) 0.4 %; Eosinophils # (auto) 0.15 K/uL (0.00-0.50); Eosinophils % (auto) 1.9 %; Hematocrit (blood only) 38.8 % (37.0-47.0); Hemoglobin 11.8 g/dl (12.0-16.0); Immature Granulocytes # (auto) 0.02 K/uL (0.01-0.20); Immature Granulocytes % (auto) 0.3 %; Lymphocytes % (auto) 18.1 %; Mean Corpuscular Hemoglobin 24.7 pg (25.0-34.0); Mean Corpuscular Hgb Conc 30.4 g/dL (32.0-36.0); Mean Corpuscular Volume 81.3 fL (80.0-100.0); Mean Platelet Volume 9.7 fL (9.4-12.4); Monocytes # (auto) 1.02 K/uL (0.11-0.59); Monocytes % (auto) 13.2 %; Neutrophils % (auto) 66.1 %; Platelet Count 211 K/uL (130-400); RDW Coefficient of Variation 16.5 % (11.5-14.5); RDW Standard Deviation 48.6 fL (36.4-46.3); Red Blood Count 4.77 M/uL (4.20-5.40); White Blood Count 7.72 K/ul (4.8-10.8)
[2023-11-21 00:23] LABS: Albumin Level 3.9 gm/dl (3.4-5.0); BUN Creatinine Ratio 14.5 (10-20); Bilirubin Direct 0.2 mg/dl (0-0.2); Calcium 9.5 mg/dl (8.6-10.3); Creatinine Clr Calc Pharmacy 43.4 ml/min; Est GFR (African American) 55.3 ml/min; Est GFR (Non-African American) 47.7 ml/min; Phosphorus 3.5 mg/dl (2.5-4.9); Potassium 4.1 mmol/L (3.5-5.1); Total Protein 6.7 gm/dl (6.0-8.3)
[2023-11-21 00:30] LABS: Troponin I High Sensitivity 25.4 pg/ml (0-14)
[2023-11-21 00:47] LABS: Adenovirus PCR Not Detected (NotDetected); Bordetella parapertussis PCR Not Detected (NotDetected); Bordetella pertussis PCR Not Detected (NotDetected); Chlamydia pneumoniae PCR Not Detected (NotDetected); Coronavirus 229E PCR Not Detected (NotDetected); Coronavirus CoV-2 (COVID19)PCR Not Detected (NotDetected); Coronavirus HKU1 PCR Not Detected (NotDetected); Coronavirus NL63 PCR Not Detected (NotDetected); Coronavirus OC43PCR Not Detected (NotDetected); Human Metapneumovirus PCR Not Detected (NotDetected); Influenza A PCR Not Detected (NotDetected); Influenza B PCR Not Detected (NotDetected); Mycoplasma pneumoniae PCR Not Detected (NotDetected); Parainfluenza Virus 1 PCR Not Detected (NotDetected); Parainfluenza Virus 2 PCR Not Detected (NotDetected); Parainfluenza Virus 3 PCR Not Detected (NotDetected); Parainfluenza Virus 4 PCR Not Detected (NotDetected); Respiratory Syncytial VirusPCR Not Detected (NotDetected); Rhinovirus/Enterovirus PCR Not Detected (NotDetected)
[2023-11-21 01:30] VITALS: TEMP 98.6
[2023-11-21 01:57] LABS: Appearance Urine Clear (Clear); Bacteria Urine Automated Negative (Negative); Bilirubin Urine Negative (Negative); Blood Urine Negative (Negative); Color Urine Yellow; Epithelial Cell Urine Auto >30 /lpf (0-5); Glucose Urine UA 3+ (Negative); Ketones Urine Trace (Negative); Leukocyte Esterase Urine Trace (Negative); Nitrite Urine Negative (Negative); Protein Urine 2+ (Negative); RBC Urine Automated 0-4 /hpf (0-4); Urobilinogen Urine Negative (Negative)
[2023-11-21] MEDS: cefTRIAXone SODIUM 2,000 MG/50 ML BAG IV STA (01:57)
[2023-11-21 03:13] LABS: INR 1.1 (0.9-1.1); Prothrombin Time 11.8 Seconds (9.0-12.0)
--- NOTE | 2023-11-21 03:20 | History & Physical Report ---
Date of Service November 21, 2023 Assessment & Plan (1) Feels feverish: Plan: 78-year-old female with past medical history significant for hyperlipidemia, primary hyperparathyroidism, s/p TAVR, pulmonary hypertension, tachybradycardia syndrome s/p pacemaker, chronic A-fib, hypertension, history of CAD, CKD stage III, severe tricuspid valve regurgitation, degenerative disc disease, seizure disorder, history of toxic metabolic encephalopathy, history of multiple pulmonary nodules, history of nonmelanoma skin cancer who recently had pacemaker generator change comes because of soreness at the pacemaker site and low-grade fevers. Patient currently resting comfortably and hemodynamically stable. Denies any shortness of breath other than her usual. No headache. Vision is okay. No runny nose or sore throat or cough. Appetite is okay. No difficulty swallowing. No nausea. No abdominal pain. Normal bowel and bladder movements. She states she had five generator changes in the past but not had the soreness and fever so she came to the ER. Feels feverish Recently had pacemaker generator changed Had soreness at the pacemaker site No obvious infection seen at pacemaker site No leukocytosis, ER empirically given Rocephin which will be continued Will follow cultures Gentle fluids Serial cardiac enzymes and echo N.p.o. for now Telemetry Consult cardiology in a.m. for further recommendations Chronic A-fib Tachybradycardia syndrome s/p pacemaker On metoprolol succinate and Eliquis Will monitor CKD stage III Presented with creatinine of 1.1 Will monitor S/p TAVR Chronic heart failure with preserved ejection fraction and history of nonisch emic cardiomyopathy with normalization of LV function On Bumex We will monitor. Nonobstructive CAD On beta-milton and Eliquis. Hyperlipidemia Statin and Zetia intolerance History of seizure disorder On Keppra DVT prophylaxis On Eliquis Disposition Observation in med/tele Full code History of Present Illness Chief Complaint: Chest pain and fever Primary Care Provider: Anthony Sadners DO 78-year-old female with past medical history significant for hyperlipidemia, primary hyperparathyroidism, s/p TAVR, pulmonary hypertension, tachybradycardia syndrome s/p pacemaker, chronic A-fib, hypertension, history of CAD, CKD stage III, severe tricuspid valve regurgitation, degenerative disc disease, seizure disorder, history of toxic metabolic encephalopathy, history of multiple pulmonary nodules, history of nonmelanoma skin cancer who recently had pacemaker generator change comes because of soreness at the pacemaker site and low-grade fevers. Patient currently resting comfortably and hemodynamically stable. Denies any shortness of breath other than her usual. No headache. Vision is okay. No runny nose or sore throat or cough. Appetite is okay. No difficulty swallowing. No nausea. No abdominal pain. Normal bowel and bladder movements. She states she had five generator changes in the past but not had the soreness and fever so she came to the ER. Past medical history. As mentioned above Past surgical history. Ablation of heart dysrhythmia, colonoscopy, cardiac cath, s/p pacemaker placement, s/p TAVR, tonsillectomy, bilateral cataracts, total abdominal hysterectomy with removal of tubes. Social history. No smoking. No alcohol use. No drug use. Family history. Mother had arthritis. Diabetes. CHF. Aortic stenosis. Father at age 47 from fatal [place]. Brother had brain aneurysm. Allergies Allergy/AdvReac Type Severity Reaction Status Date / Time enoxaparin Allergy Intermediate hematoma, Verified 11/20/23 23:15 skin sloughing furosemide Allergy Intermediate RASH Verified 11/20/23 23:15 lactose Allergy Intermediate Gastrointestinal Verified 11/20/23 23:15 Upset ezetimibe AdvReac Intermediate nausea,diar Verified 11/20/23 23:15 rabia [id number]-[id number]-AaS Reductase AdvReac Intermediate LEG CRAMPS Verified 11/20/23 23:15 Inhibitor [Gzcgmcu-Bqs-Vox Reductase Inhibitor] Home Medications Medication Instructions Recorded Confirmed Type glucosamine-chondroitin 500 mg-400 2 cap PO DAILY 05/11/19 11/20/23 History mg capsule acetaminophen 325 mg tablet 325 mg PO QID PRN Pain 09/21/21 11/20/23 History (Tylenol) multivitamin 1 tab PO DAILY 09/21/21 11/20/23 History apixaban 5 mg tablet (Eliquis) 5 mg PO BID #60 tabs 09/29/21 11/20/23 Rx bumetanide 0.5 mg tablet 0.5 mg PO DAILY 11/19/23 11/20/23 History empagliflozin 25 mg tablet 25 mg PO DAILY 11/19/23 11/20/23 History (Jardiance) levetiracetam 500 mg tablet 250 mg PO BID 11/19/23 11/20/23 History (Keppra) metoprolol succinate 100 mg 150 mg PO DAILY 11/19/23 11/20/23 History tablet,extended release 24 hr Past Med/Surg History Medical History Third degree AV block CKD (chronic kidney disease) stage 3, GFR 30-59 ml/min History of pacemaker Tachy-melissa syndrome Permanent atrial fibrillation Dyslipidemia Diastolic heart failure Paroxysmal a-fib Pacemaker malfunction (05/26/14) HTN (hypertension) Surgical History History of umbilical hernia repair History of cataract surgery History of aortic valve replacement S/P AVR (aortic valve replacement) Hx of tonsillectomy History of hysterectomy History of radiofrequency ablation procedure for cardiac arrhythmia Family History Other Coronary heart disease Diabetes Social History Smoking Status: Never smoker Second Hand Exposure: No; Do You Dip or Chew Tobacco: No; Hx Alcohol Use: No Hx Substance Use: No Preferred Language: Kyrgyz Communication Ability: Effective Doll Repairer Required: No Beliefs That Will Affect Care: None marital status: Single Current Living Situation: Alone current occupational status: retired How many Children do You have: 2 Feels Safe at Home: Yes Assistive Devices: None Review of Systems Review of Systems: All systems reviewed & are unremarkable except as noted in HPI & below Physical Exam Physical Exam: General- Not in distress Head- atraumatic Eyes- PERRL. ENT- oropharynx clear Neck- supple, no JVD. Lungs- clear to auscultation no wheezing or crackles. Heart- regular rhythm; no murmur, no gallop.Pacemaker site no obvious drainage seen. Abdomen- normal bowel sounds, soft, nontender, no distension. Extremities- no pretibial edema, no calf tenderness. Neuro- alert, oriented ; PERRL, no facial palsy; no dysarthria; moves extremities. Results & Data Results & Data Vital Signs (Past 12 Hours) Vital Signs Temp Pulse Pulse Resp BP Pulse Ox O2 Del Method 11/21/23 01:30 83 20 124/94 92 11/21/23 01:00 37.0 C 86 16 116/83 91 11/21/23 00:30 83 18 120/93 93 11/21/23 00:19 95 Room Air 11/21/23 00:00 85 18 139/94 92 11/20/23 23:54 88 18 142/74 H 91 11/20/23 22:35 84 11/20/23 22:28 88 97 Room Air 11/20/23 22:28 Room Air 11/20/23 22:16 37.4 C 88 18 146/104 H 91 Room Air Diagnostic Findings Laboratory Results WBC 7.72 K/ul (4.8-10.8) 11/20/23 23:45 RBC 4.77 M/uL (4.20-5.40) 11/20/23 23:45 Hgb 11.8 g/dl (12.0-16.0) L 11/20/23 23:45 Hct 38.8 % (37.0-47.0) 11/20/23 23:45 MCV 81.3 fL (80.0-100.0) 11/20/23 23:45 MCH 24.7 pg (25.0-34.0) L 11/20/23 23:45 MCHC 30.4 g/dL (32.0-36.0) L 11/20/23 23:45 RDW Std Deviation 48.6 fL (36.4-46.3) H 11/20/23 23:45 RDW Coeff of Bob 16.5 % (11.5-14.5) H 11/20/23 23:45 Plt Count 211 K/uL (130-400) 11/20/23 23:45 MPV 9.7 fL (9.4-12.4) 11/20/23 23:45 Immature Gran % (Auto) 0.3 % 11/20/23 23:45 Neut % (Auto) 66.1 % 11/20/23 23:45 Lymph % (Auto) 18.1 % 11/20/23 23:45 [place] % (Auto) 13.2 % 11/20/23 23:45 Eos % (Auto) 1.9 % 11/20/23 23:45 Baso % (Auto) 0.4 % 11/20/23 23:45 Neut # (Auto) 5.10 K/uL (1.40-6.50) 11/20/23 23:45 Lymph # (Auto) 1.40 K/uL (1.20-3.40) 11/20/23 23:45 [place] # (Auto) 1.02 K/uL (0.11-0.59) H 11/20/23 23:45 Eos # (Auto) 0.15 K/uL (0.00-0.50) 11/20/23 23:45 Baso # (Auto) 0.03 K/uL (0.00-0.20) 11/20/23 23:45 Immature Gran # (Auto) 0.02 K/uL (0.01-0.20) 11/20/23 23:45 PT 11.8 Seconds (9.0-12.0) 11/20/23 23:45 INR 1.1 (0.9-1.1) 11/20/23 23:45 Sodium 139 mmol/L (136-145) 11/20/23 23:45 Potassium 4.1 mmol/L (3.5-5.1) 11/20/23 23:45 Chloride 105 mmol/L (98-107) 11/20/23 23:45 Carbon Dioxide 28 mmol/L (21-32) 11/20/23 23:45 Anion Gap 6 (3-11) 11/20/23 23:45 BUN 16 mg/dl (6-23) 11/20/23 23:45 Creatinine 1.10 mg/dl (0.6-1.2) 11/20/23 23:45 Est Cr Clr Drug Dosing 43.4 ml/min 11/20/23 23:45 Est GFR ( Amer) 55.3 ml/min 11/20/23 23:45 Est GFR (Non-Af Amer) 47.7 ml/min 11/20/23 23:45 BUN/Creatinine Ratio 14.5 (10-20) 11/20/23 23:45 Glucose 105 mg/dl (70-99(Fasting)) H 11/20/23 23:45 Lactate 0.7 mmol/L (0.4-2.0) 11/20/23 23:45 Calcium 9.5 mg/dl (8.6-10.3) 11/20/23 23:45 Phosphorus 3.5 mg/dl (2.5-4.9) 11/20/23 23:45 Magnesium 2.0 mg/dl (1.7-2.4) 11/20/23 23:45 Total Bilirubin 1.0 mg/dl (0.2-1.0) 11/20/23 23:45 Direct Bilirubin 0.2 mg/dl (0-0.2) 11/20/23 23:45 AST 20 U/L (13-39) 11/20/23 23:45 ALT 9 U/L (7-52) 11/20/23 23:45 Alkaline Phosphatase 94 U/L (34-104) 11/20/23 23:45 Troponin I High Sens 25.8 pg/ml (0-14) H 11/21/23 01:39 B-Natriuretic Peptide 350 pg/ml (0-100) H 11/20/23 23:45 Total Protein 6.7 gm/dl (6.0-8.3) 11/20/23 23:45 Albumin 3.9 gm/dl (3.4-5.0) 11/20/23 23:45 Lipase 18 U/L (11-82) 11/20/23 23:45 Procalcitonin < 0.02 ng/ml (0-0.5) 11/20/23 23:45 Urine Color Yellow 11/21/23 01:20 Urine Appearance Clear (Clear) 11/21/23 01:20 Urine pH 6.0 (4.5-7.5) 11/21/23 01:20 Ur Specific [place] 1.030 (1.000-1.030) 11/21/23 01:20 Urine Protein 2+ (Negative) H 11/21/23 01:20 Urine Glucose (UA) 3+ (Negative) H 11/21/23 01:20 Urine Ketones Trace (Negative) H 11/21/23 01:20 Urine Blood Negative (Negative) 11/21/23 01:20 Urine Nitrite Negative (Negative) 11/21/23 01:20 Urine Bilirubin Negative (Negative) 11/21/23 01:20 Urine Urobilinogen Negative (Negative) 11/21/23 01:20 Ur Leukocyte Esterase Trace (Negative) H 11/21/23 01:20 Urine WBC (Auto) 10-30 /hpf (0-5) H 11/21/23 01:20 Urine RBC (Auto) 0-4 /hpf (0-4) 02/29/24 01:20 U Hyaline Cast (Auto) 1-5 /lpf (0-5) 11/21/23 01:20 U Epithel Cells (Auto) >30 /lpf (0-5) H 11/21/23 01:20 Urine Bacteria (Auto) Negative (Negative) 11/21/23 01:20 Adenovirus (PCR) Not Detected (NotDetected) 11/20/23 23:45 B. pertussis DNA (PCR) Not Detected (NotDetected) 11/20/23 23:45 B.parapertussis DNA PCR Not Detected (NotDetected) 11/20/23 23:45 C. pneumoniae DNA (PCR) Not Detected (NotDetected) 11/20/23 23:45 Coronavirus OC43 (PCR) Not Detected (NotDetected) 11/20/23 23:45 Coronavirus HKU1 (PCR) Not Detected (NotDetected) 11/20/23 23:45 Coronavirus 229E (PCR) Not Detected (NotDetected) 11/20/23 23:45 SARS-CoV-2 (PCR) Not Detected (NotDetected) 11/20/23 23:45 Coronavirus NL63 (PCR) Not Detected (NotDetected) 11/20/23 23:45 Human Metapneumovir PCR Not Detected (NotDetected) 11/20/23 23:45 Influenza Type A (PCR) Not Detected (NotDetected) 11/20/23 23:45 Influenza Type B (PCR) Not Detected (NotDetected) 11/20/23 23:45 M. pneumoniae (PCR) Not Detected (NotDetected) 11/20/23 23:45 Parainfluenza 1 (PCR) Not Detected (NotDetected) 11/20/23 23:45 Parainfluenza 2 (PCR) Not Detected (NotDetected) 11/20/23 23:45 Parainfluenza 3 (PCR) Not Detected (NotDetected) 11/20/23 23:45 Parainfluenza 4 (PCR) Not Detected (NotDetected) 11/20/23 23:45 RSV (PCR) Not Detected (NotDetected) 11/20/23 23:45 Entero/Rhino (PCR) Not Detected (NotDetected) 11/20/23 23:45 ECG Additional Comments: ECG. Atrial fibrillation rate of 85. Left axis deviation. Right bundle branch block. Code Status & VTE Plan VTE Prophylaxis Plan VTE Prophylaxis will be ordered: Yes
[2023-11-21 03:36] VITALS: RESP 18
[2023-11-21] MEDS ORDERED: NITROGLYCERIN SL 0.4 MG/TAB TAB SL PRN (03:46)
[2023-11-21] MEDS ORDERED: ACETAMINOPHEN 325 MG TAB PO PRN (03:46)
[2023-11-21] MEDS ORDERED: POLYETHYLENE (MIRALAX) 17 GM PACK PO PRN (03:46)
[2023-11-21] MEDS: SODIUM CHLORIDE 0.9% 1,000 ML IV SCH (03:57)
[2023-11-21] MEDS: levETIRAcetam 250 MG TAB PO SCH (06:34)
--- NOTE | 2023-11-21 06:50 | XRay Report ---
XR chest 1V portable CLINICAL HISTORY: left cp after PPM battery exchange COMPARISON STUDY: Chest radiograph September 21, 2021. FINDINGS: There is no pneumothorax or pleural effusion. Left subclavian pacemaker, median sternotomy wires and prosthetic aortic valve are noted. Stable cardiomegaly without evidence for pulmonary edema . There is no consolidation. IMPRESSION: No acute cardiopulmonary findings. No change in appearance of the chest. Cardiomegaly. ACT 112: Negative or not required by law. Electronically signed by: Zhang Aguiar M.D. 11/21/2023 6:48 AM
[2023-11-21] MEDS: BUMETANIDE 1 MG TAB PO SCH (08:10)
[2023-11-21] MEDS: METOPROLOL SUCC 50MG EXT REL TAB PO SCH (08:12)
[2023-11-21] MEDS: MULTIVITAMIN TAB PO SCH (08:13)
[2023-11-21] MEDS ORDERED: APIXABAN 5 MG TABLET PO SCH (09:00)
[2023-11-21] MEDS ORDERED: GLUCOSAMINE CHONDROITIN PO SCH (09:00)
[2023-11-21 10:08] VITALS: O2SAT 90
--- NOTE | 2023-11-21 11:08 | Cardiology Consultation ---
Date of Consultation November 21, 2023 Assessment & Plan (1) Feels feverish: (2) Pacemaker: (3) Atrial fibrillation: (4) S/P TAVR (transcatheter aortic valve replacement): Plan 78-year-old female presented to the emergency department status post pacemaker implantation 11/19/2023. Symptoms including low-grade fever and discomfort near pacemaker implantation site. Received 1 dose of IV Rocephin in ER. Blood cultures drawn with results pending. No leukocytosis or fevers on admission. 2D echocardiogram demonstrating stable findings. Remote pacemaker interrogation within normal limits per discussion with electrophysiology. Recommend follow blood cultures. Hold Eliquis this evening and tomorrow AM 11/22/2023. Resume Eliquis in the evening 11/22/2023. Continue other cardiovascular medications as previously ordered. No further inpatient cardiac testing or intervention recommended at this time. Cardiology follow-up as scheduled Saturday11/26/2023. History of Present Illness Reason for Consultation: Chest pain, recent pacemaker generator change Requesting Physician: Dr. Black Attending Physician: Naresh Rice MD History of Present Illness 78-year-old female presented to the emergency department due to low-grade fever, 99 degrees, and discomfort near recent pacemaker generator change. Denies chest heaviness or tightness. No unusual shortness of breath, orthopnea, PND, or change in chronic, mild bilateral pedal edema. No fevers recorded since admission. Feeling well this a.m. Treated with 1 dose of IV Rocephin. Notes discomfort in her pacemaker site with palpation and left arm movement. No erythema, drainage, or bleeding reported. Telemetry reveals atrial fibrillation with intermittent demand ventricular pacing. Echocardiogram with stable findings of preserved LV function, moderate RV dilation with preserved RV function and mild pulmonary hypertension. Allergies Allergy/AdvReac Type Severity Reaction Status Date / Time enoxaparin Allergy Intermediate hematoma, Verified 11/20/23 23:15 skin sloughing furosemide Allergy Intermediate RASH Verified 11/20/23 23:15 lactose Allergy Intermediate Gastrointestinal Verified 11/20/23 23:15 Upset ezetimibe AdvReac Intermediate nausea,diar Verified 11/20/23 23:15 rabia [id number]-[id number] Reductase AdvReac Intermediate LEG CRAMPS Verified 11/20/23 23:15 Inhibitor [Caiemch-Qar-Qed Reductase Inhibitor] Home Medications Medication Instructions Recorded Confirmed Type glucosamine-chondroitin 500 mg-400 2 cap PO DAILY 05/11/19 11/20/23 History mg capsule acetaminophen 325 mg tablet 325 mg PO QID PRN Pain 09/21/21 11/20/23 History (Tylenol) multivitamin 1 tab PO DAILY 09/21/21 11/20/23 History apixaban 5 mg tablet (Eliquis) 5 mg PO BID #60 tabs 09/29/21 11/20/23 Rx bumetanide 0.5 mg tablet 0.5 mg PO DAILY 11/19/23 11/20/23 History empagliflozin 25 mg tablet 25 mg PO DAILY 11/19/23 11/20/23 History (Jardiance) levetiracetam 500 mg tablet 250 mg PO BID 11/19/23 11/20/23 History (Keppra) metoprolol succinate 100 mg 150 mg PO DAILY 11/19/23 11/20/23 History tablet,extended release 24 hr Patient History Medical History Third degree AV block CKD (chronic kidney disease) stage 3, GFR 30-59 ml/min History of pacemaker Tachy-melissa syndrome Permanent atrial fibrillation Dyslipidemia Diastolic heart failure Paroxysmal a-fib Pacemaker malfunction (05/26/14) HTN (hypertension) Surgical History History of umbilical hernia repair History of cataract surgery History of aortic valve replacement S/P AVR (aortic valve replacement) Hx of tonsillectomy History of hysterectomy History of radiofrequency ablation procedure for cardiac arrhythmia Family History Other Coronary heart disease Diabetes Social History Smoking Status: Never smoker Second Hand Exposure: No; Do You Dip or Chew Tobacco: No; Hx Alcohol Use: No Hx Substance Use: No Preferred Language: Divehi Communication Ability: Effective Riveter Pneumatic Required: No Beliefs That Will Affect Care: None marital status: Single Current Living Situation: Alone current occupational status: retired How many Children do You have: 2 Feels Safe at Home: Yes Assistive Devices: None Review of Systems Review of Systems: All systems reviewed & are unremarkable except as noted in Subjective Physical Exam Constitutional: well developed and well nourished; no acute distress Respiratory: no respiratory distress, no labored breathing and no retractions Auscultation: lungs clear to auscultation bilaterally; no crackles, no rales, no rhonchi and no wheezes Cardiovascular: Rate/Rhythm: regular rate and regular rhythm Heart Sounds: normal S1, normal S2 and + murmur (1/6 systolic ejection murmur heard best at the base.) Vessels: femoral pulses present and radial pulses present; no JVD and no carotid bruit Extremities: + edema (Mild bilateral pedal and ankle assistance.) Gastrointestinal (Abdomen): Inspection/Auscultation: abdomen normal to inspection; abdomen not distended and + abnormal bowel sounds Percussion/Palpation: abdomen soft; abdomen nontender, no guarding and abdomen not rigid Neurologic: CN's II-XI intact bilaterally and moves all extremities; no focal motor deficits Results & Data Vital Signs (Past 12 Hours) Vital Signs Temp Pulse Resp BP Pulse Ox Pulse Ox O2 Del Method 11/21/23 09:36 76 18 121/89 90 Room Air 11/21/23 08:55 69 11/21/23 05:00 75 18 114/78 93 11/21/23 04:30 77 16 122/75 92 11/21/23 04:11 95 11/21/23 03:30 82 18 121/86 92 11/21/23 03:00 78 20 108/77 92 11/21/23 02:34 81 11/21/23 01:30 83 20 124/94 92 11/21/23 01:00 37.0 C 86 16 116/83 91 11/21/23 00:30 83 18 120/93 93 11/21/23 00:19 95 Room Air 11/21/23 00:00 85 18 139/94 92 11/20/23 23:54 88 18 142/74 H 91 O2 Del Method 11/21/23 09:36 11/21/23 08:55 11/21/23 05:00 11/21/23 04:30 11/21/23 04:11 Room Air 11/21/23 03:30 11/21/23 03:00 11/21/23 02:34 11/21/23 01:30 11/21/23 01:00 11/21/23 00:30 11/21/23 00:19 11/21/23 00:00 11/20/23 23:54 Laboratory Results Cardiac Enzymes 11/20/23 11/21/23 Range/Units 23:45 01:39 AST 20 (13-39) U/L Troponin I High Sens 25.4 H 25.8 H (0-14) pg/ml B-Natriuretic Peptide 350 H (0-100) pg/ml Coagulation 11/20/23 Range/Units 23:45 PT 11.8 (9.0-12.0) Seconds B-Natriuretic Peptide 350 H (0-100) pg/ml CBC 11/20/23 Range/Units 23:45 WBC 7.72 (4.8-10.8) K/ul RBC 4.77 (4.20-5.40) M/uL Hgb 11.8 L (12.0-16.0) g/dl Hct 38.8 (37.0-47.0) % Plt Count 211 (130-400) K/uL Neut # (Auto) 5.10 (1.40-6.50) K/uL Lymph # (Auto) 1.40 (1.20-3.40) K/uL [place] # (Auto) 1.02 H (0.11-0.59) K/uL Eos # (Auto) 0.15 (0.00-0.50) K/uL Baso # (Auto) 0.03 (0.00-0.20) K/uL Comprehensive Metabolic Panel 11/20/23 Range/Units 23:45 Sodium 139 (136-145) mmol/L Potassium 4.1 (3.5-5.1) mmol/L Chloride 105 (98-107) mmol/L Carbon Dioxide 28 (21-32) mmol/L BUN 16 (6-23) mg/dl Creatinine 1.10 (0.6-1.2) mg/dl Glucose 105 H (70-99(Fasting)) mg/dl Calcium 9.5 (8.6-10.3) mg/dl Direct Bilirubin 0.2 (0-0.2) mg/dl AST 20 (13-39) U/L ALT 9 (7-52) U/L Alkaline Phosphatase 94 (34-104) U/L Total Protein 6.7 (6.0-8.3) gm/dl Albumin 3.9 (3.4-5.0) gm/dl Intake and Output 11/20/23 11/21/23 11/21/23 22:59 06:59 14:59 Intake Total 150 / 150 Balance 150 / 150 Intake: IV 150 / 150 Acetaminophen 1,000 mg In 100 100 / 100 ml @ 400 mls/hr IV NOW STA Rx#: [id number] cefTRIAXone SODIUM 2,000 mg In 50 / 50 50 ml @ 100 mls/hr IV NOW STA Rx#:[id number] Other: Weight 80.1 kg Weight Measurement Method Chair Scale (3) Atrial fibrillation Atrial fibrillation type: unspecified Qualified Code(s): I48.91 - Unspecified atrial fibrillation
--- NOTE | 2023-11-21 11:23 | Discharge Summary ---
Date of Service November 21, 2023 Admission HPI Per Admitting Provider 78-year-old female with past medical history significant for hyperlipidemia, primary hyperparathyroidism, s/p TAVR, pulmonary hypertension, tachybradycardia syndrome s/p pacemaker, chronic A-fib, hypertension, history of CAD, CKD stage III, severe tricuspid valve regurgitation, degenerative disc disease, seizure disorder, history of toxic metabolic encephalopathy, history of multiple pulmonary nodules, history of nonmelanoma skin cancer who recently had pacemaker generator change comes because of soreness at the pacemaker site and low-grade fevers. Patient currently resting comfortably and hemodynamically stable. Denies any shortness of breath other than her usual. No headache. Vision is okay. No runny nose or sore throat or cough. Appetite is okay. No difficulty swallowing. No nausea. No abdominal pain. Normal bowel and bladder movements. She states she had five generator changes in the past but not had the soreness and fever so she came to the ER. Past medical history. As mentioned above Past surgical history. Ablation of heart dysrhythmia, colonoscopy, cardiac cath, s/p pacemaker placement, s/p TAVR, tonsillectomy, bilateral cataracts, total abdominal hysterectomy with removal of tubes. Social history. No smoking. No alcohol use. No drug use. Family history. Mother had arthritis. Diabetes. CHF. Aortic stenosis. Father at age 47 from fatal MS. Brother had brain aneurysm. Admission Exam Per Admitting Provider General- Not in distress Head- atraumatic Eyes- PERRL. ENT- oropharynx clear Neck- supple, no JVD. Lungs- clear to auscultation no wheezing or crackles. Heart- regular rhythm; no murmur, no gallop.Pacemaker site no obvious drainage seen. Abdomen- normal bowel sounds, soft, nontender, no distension. Extremities- no pretibial edema, no calf tenderness. Neuro- alert, oriented ; PERRL, no facial palsy; no dysarthria; moves extremities. Principal Diagnosis Pain at pacemaker site Discharge Exam General- WD/WN elderly F in NAD Head- atraumatic Eyes- PERRL. ENT- oropharynx clear Neck- supple, no JVD. Lungs- clear to auscultation no wheezing or crackles. Heart- regular rhythm; no murmur, no gallop.Pacemaker site no obvious drainage or erythema seen. Abdomen- normal bowel sounds, soft, nontender, no distension. Extremities- + mild ankle edema, no calf tenderness. Neuro- alert, oriented ; PERRL, no facial palsy; no dysarthria; moves extremities. Discharge Data Allergies Allergy/AdvReac Type Severity Reaction Status Date / Time enoxaparin Allergy Intermediate hematoma, Verified 11/20/23 23:15 skin sloughing furosemide Allergy Intermediate RASH Verified 11/20/23 23:15 lactose Allergy Intermediate Gastrointestinal Verified 11/20/23 23:15 Upset ezetimibe AdvReac Intermediate nausea,diar Verified 11/20/23 23:15 rabia [id number] Reductase AdvReac Intermediate LEG CRAMPS Verified 11/20/23 23:15 Inhibitor [Lazqtox-Kjj-Nnx Reductase Inhibitor] Consultations 11/21/23 01:49 ED Decision to Admit Stat 11/21/23 08:00 Consult Cardiology Routine Hospital Course (1) Feels feverish: 78-yo F with hyperlipidemia, primary hyperparathyroidism, s/p TAVR, pulmonary hypertension, tachybradycardia syndrome s/p pacemaker, chronic A-fib, hypertension, history of CAD, CKD stage III, severe tricuspid valve regurgitation, degenerative disc disease, seizure disorder, history of toxic metabolic encephalopathy, history of multiple pulmonary nodules, history of nonmelanoma skin cancer who recently had pacemaker generator change comes because of soreness at the pacemaker site and low-grade fevers. Patient currently resting comfortably and hemodynamically stable. Denies any shortness of breath other than her usual. No headache. Vision is okay. No runny nose or sore throat or cough. Appetite is okay. No difficulty swallowing. No nausea. No abdominal pain. Normal bowel and bladder movements. She states she had five generator changes in the past but not had the soreness and fever so she came to the ER. Feels feverish - reports temp 99F Recently had pacemaker generator changed Had soreness at the pacemaker site No obvious infection seen at pacemaker site No leukocytosis, ER empirically given Rocephin Blood cultx and urine cultx - pending Received gentle fluids Serial cardiac enzymes and echo obtained Telemetry Cardiology consulted - 2D echocardiogram demonstrating stable findings. Remote pacemaker interrogation within normal limits per discussion with electrophysiology. Recommend follow blood cultures. Hold Eliquis this evening and tomorrow AM 11/22/2023. Resume Eliquis in the evening 11/22/2023. Continue other cardiovascular medications as previously ordered. No further inpatient cardiac testing or intervention recommended at this time. Cardiology follow-up as scheduled Saturday11/26/2023. Discussed w/ cardiology - no need for antibiotics on discharge. Chronic A-fib Tachybradycardia syndrome s/p pacemaker On metoprolol succinate and Eliquis - hold eliquis for now, as above Will monitor CKD stage III Presented with creatinine of 1.1 cont. to monitor S/p TAVR Chronic heart failure with preserved ejection fraction and history of nonischemic cardiomyopathy with normalization of LV function On Bumex cont. to monitor. Nonobstructive CAD On beta-milton and Eliquis. Hyperlipidemia Statin and Zetia intolerance History of seizure disorder On Keppra Total Time Total Time Spent Total Time Spent (In Minutes): 40 Discharge Plan Discharge Items Patient Disposition: Home - Self-Care Reason For Visit: CHEST PAIN Discharge Diagnosis: Pain at pacemaker site Activity: Per Instructions section Non-emergency contact: Primary Care Provider and Councilor Call non-emergency contact if: you have any medication questions and your symptoms worsen Follow-up/Referrals: Anthony Sanders, [Primary Care Provider] - Diet: Heart Healthy Addtl Attending Provider Instructions: Follow up with your primary care doctor and county library director. Continue your home medications as prescribed. However, do not take Eliquis until tomorrow evening. Pending Studies at Discharge: Yes Studies:: final results of blood cultx, urine cultx Stand-Alone Forms: My [facility] [employer] Smoking Cessation Medications and DC Order Prescriptions: Continued glucosamine-chondroitin 500-400 mg capsule 2 cap PO DAILY multivitamin Tablet 1 tab PO DAILY acetaminophen [Tylenol] 325 mg Tablet 325 mg PO QID PRN (Reason: Pain) bumetanide 0.5 mg Tablet 0.5 mg PO DAILY Jardiance 25 mg Tablet 25 mg PO DAILY levetiracetam [Keppra] 500 mg tablet 250 mg PO BID Rx Instructions: TAKES 0700 & 1900 metoprolol succinate 100 mg tablet extended release 24 hr 150 mg PO DAILY Held Eliquis 5 mg Tablet 5 mg PO BID Qty: 60 0RF Hold Instructions: Resume on 11/22/23. resume tomorrow evening (November 21) Rx Instructions: ON HOLD FOR PROCEDURE Discharge Orders: Discharge Order (Routine); Ordered 11/21/23 Ordered By: Naresh Rice Admission Data Admit Date/Time: 11/21/23 03:00 Attending Provider: Naresh Rice Admit Provider: Erik Black Primary Care Provider: Anthony Sanders Other Providers: Erik Black; Darryn Hernandez
[2023-11-21 11:52] VITALS: BP 120/86; PULSE 88
--- NOTE | 2023-11-21 13:07 | Electrocardiogram Report ---
Test Reason : Blood Pressure : / mmHG Vent. Rate : 085 BPM Atrial Rate : 000 BPM P-R Int : 000 ms QRS Dur : 152 ms QT Int : 386 ms P-R-T Axes : 000 -64 -26 degrees QTc Int : 459 ms Atrial fibrillation Left axis deviation Right bundle branch block T wave abnormality, consider lateral ischemia Abnormal ECG When compared with ECG of 21-SEP-2021 14:04, Vent. rate has decreased BY 62 BPM Questionable change in QRS axis T wave inversion now evident in Inferior leads T wave inversion less evident in Lateral leads Confirmed by Darrin Da Silva ([id number]) on 11/21/2023 1:06:40 PM Referred By: REFERRED SELF Confirmed By:Darrin Da Silva
[2023-11-22] MEDS ORDERED: cefTRIAXone SODIUM 2,000 MG in DEXTROSE 5 % MINI-B 50 ML IV SCH (03:00)
== END 2023-11-21 11:50 | disposition home or self-care (01) ==
LOC: ED 22:02 → EDINP 22:02